=== PATIENT | female | born 1960 | race Caucasian/White ===

== ENCOUNTER 2016-10-26 07:30 | Outpatient (CLI) | payer MEDICAID | END 2016-10-26 07:31 | disposition critical access hospital (66) | DX: R10.9 Unspecified abdominal pain (principal) | CPT/HCPCS: A0425; A0429 ==

== ENCOUNTER 2016-10-26 07:46 | Emergency (ER) | payer MEDICAID ==
[2016-10-26] MEDS ORDERED: SODIUM CHLORIDE 0.9% 1,000 ML IV ONE (07:50)
[2016-10-26] MEDS ORDERED: PROCHLORPERAZINE 10 MG/2 ML VIAL IVP STA (07:50)
[2016-10-26] MEDS ORDERED: PROCHLORPERAZINE 10 MG/2 ML VIAL ONE (07:58)
== END 2016-10-26 11:01 | disposition home or self-care (01) ==
DX: E86.0 Dehydration (principal); E11.65 Type 2 diabetes mellitus with hyperglycemia; Z79.84 Long term (current) use of oral hypoglycemic drugs; K52.9 Noninfective gastroenteritis and colitis, unspecified; I10 Essential (primary) hypertension; E78.00 Pure hypercholesterolemia, unspecified; J45.909 Unspecified asthma, uncomplicated; G47.30 Sleep apnea, unspecified; K21.9 Gastro-esophageal reflux disease without esophagitis; M19.90 Unspecified osteoarthritis, unspecified site; M79.7 Fibromyalgia

== ENCOUNTER 2016-11-11 11:42 | Outpatient (CLI) | payer MEDICAID | END 2016-11-11 11:43 | disposition critical access hospital (66) | DX: R11.2 Nausea with vomiting, unspecified (principal); R19.7 Diarrhea, unspecified | CPT/HCPCS: A0425; A0427 ==

== ENCOUNTER 2016-11-11 11:59 | Emergency (ER) | payer MEDICAID ==
[2016-11-11] MEDS ORDERED: SODIUM CHLORIDE 0.9% 1,000 ML IV ONE (12:08)
[2016-11-11] MEDS ORDERED: ONDANSETRON 4 MG/2 ML VIAL IVP STA (13:33)
== END 2016-11-11 14:27 | disposition home or self-care (01) ==
DX: K52.9 Noninfective gastroenteritis and colitis, unspecified (principal); E11.65 Type 2 diabetes mellitus with hyperglycemia; I10 Essential (primary) hypertension; E78.5 Hyperlipidemia, unspecified; E66.9 Obesity, unspecified; Z79.4 Long term (current) use of insulin; Z68.42 Body mass index [BMI] 45.0-49.9, adult

== ENCOUNTER 2017-01-01 19:04 | Emergency (ER) | payer MEDICAID ==
[2017-01-01] MEDS ORDERED: DIPHENOX/ATROPINE 2.5/0.025 MG TABLET PO STA (19:35)
[2017-01-01] MEDS ORDERED: PANTOPRAZOLE 40 MG TABLET PO STA (19:35)
[2017-01-01] MEDS ORDERED: MAG HYDROX/AL HYDROX/SIMETH 30 ML UDC PO STA (19:35)
[2017-01-01] MEDS ORDERED: LIDOCAINE VISCOUS 2% 15 ML UDC MM STA (19:35)
[2017-01-01] MEDS ORDERED: PANTOPRAZOLE 40 MG TABLET ONE (19:36)
[2017-01-01] MEDS ORDERED: LIDOCAINE VISCOUS 2% 15 ML UDC MM ONE (19:36)
[2017-01-01] MEDS ORDERED: DIPHENOX/ATROPINE 2.5/0.025 MG TABLET PO ONE (19:36)
[2017-01-01] MEDS ORDERED: MAG HYDROX/AL HYDROX/SIMETH 30 ML UDC ONE (19:36)
--- NOTE | 2017-01-01 19:37 | ED Physician Documentation ---
PD HPI ABD PAIN - Stated complaint Stated Complaint: VOMITTING/DIARRHEA - Chief complaint Chief Complaint: Abd Pain - History obtained from History obtained from: Patient - History of Present Illness Timing - onset: Other (56-year-old woman with history of diabetes, IBS, GERD. She ran out of her lansoprazole about a month ago and developed upper abdominal pain and burning ever since but now more acutely for the last 3 days has had profuse watery diarrhea not associated with fevers. She was on antibiotics about 2 months ago, but now more recently. There is no vomiting.) Review of Systems Ten Systems: 10 systems reviewed and negative Constitutional: denies: Fever, Chills Nose: denies: Rhinorrhea / runny nose, Congestion Cardiac: denies: Chest pain / pressure, Palpitations Respiratory: denies: Dyspnea, Cough PD PAST MEDICAL HISTORY - Past Medical History Cardiovascular: Hypertension, High cholesterol Respiratory: Asthma, Pneumonia, Sleep apnea, CPAP use Neuro: Headache/migraine Endocrine/Autoimmune: Type 2 diabetes GI: GERD, Other : None HEENT: None Psych: Depression, Anxiety, Post traumatic stress disorder, Claustrophobia Musculoskeletal: Osteoarthritis, Fibromyalgia, Chronic back pain Derm: Psoriasis, Rosacea - Past Surgical History Past Surgical History: Yes General: Colonoscopy, EGD, Other Ortho: Spine surgery, Other /RISK MGR: Hysterectomy, 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, Other - Present Medications Home Medications: Ambulatory Orders Medication Instructions Recorded Confirmed Fenofibrate [Lofibra] 160 mg PO BID 02/24/13 11/11/16 Lansoprazole 30 mg PO DAILY 02/24/13 11/11/16 Mirtazapine [Remeron] 15 mg PO QPM 02/24/13 11/11/16 Montelukast [Singulair] 10 mg PO QPM 02/24/13 11/11/16 Prazosin HCl [Minipress] 15 mg PO DAILY 02/24/13 11/11/16 Venlafaxine ER [Effexor ER] 450 mg PO DAILY 02/24/13 11/11/16 busPIRone [Buspar] 30 mg PO BID 02/24/13 11/11/16 metFORMIN [Glucophage] 1,000 mg PO BIDWM 02/24/13 11/11/16 Aripiprazole [Abilify] 30 mg PO DAILY 05/26/15 11/11/16 Glipizide 10 mg PO BID 05/26/15 11/11/16 Insulin Glargine [Lantus] 50 unit SQ DAILY 05/10/16 11/11/16 Insulin Lispro [Humalog] 30 unit SQ TID #0 05/12/16 11/11/16 Levalbuterol [Xopenex] 1.25 mg INH Q4HR PRN #0 neb 05/12/16 11/11/16 Losartan [Cozaar] 25 mg PO DAILY tablet 05/12/16 11/11/16 Naproxen [Naprosyn] 500 mg PO BID PRN #0 tablet 05/12/16 11/11/16 glipiZIDE [Glucotrol] 10 mg PO BID tablet 05/12/16 11/11/16 metFORMIN [Glucophage] 1,000 mg PO BIDWM tablet 05/12/16 11/11/16 traMADol [Ultram] 50 mg PO TID PRN #0 tablet 05/12/16 11/11/16 Loperamide [Imodium] 2 mg PO ONCE #12 capsule 10/26/16 11/11/16 Prochlorperazine [Compazine] 5 mg PO Q6H PRN #10 tablet 10/26/16 11/11/16 Bisoprolol Fumarate [Bisoprolol DAILY 11/11/16 Fumarate] Ondansetron Odt [Zofran] 4 mg TL Q6H PRN #10 tablet 11/11/16 Diphenoxylate/Atropine [Lomotil] 1 each PO QID PRN #20 tablet 01/01/17 Pantoprazole [Protonix] 40 mg PO DAILY #30 tablet 01/01/17 - Allergies Allergies/Adverse Reactions: Allergies Allergy/AdvReac Type Severity Reaction Status Date / Time acetaminophen [From Tylenol] Allergy Severe Anaphylaxis Verified 11/11/16 12:04 adhesive tape Allergy Severe Swelling/Er Verified 11/11/16 12:04 ythema corn [[place]] Allergy Severe Cramps Verified 11/11/16 12:04 ibuprofen [From Motrin] Allergy Severe Anaphylaxis Verified 11/11/16 12:04 latex Allergy Severe Edema/Eryth Verified 11/11/16 12:04 cristopher tetanus toxoid, adsorbed Allergy Severe Local Verified 11/11/16 12:04 swelling/Pain theophylline Allergy Severe Anaphylaxis Verified 11/11/16 12:04 wheat Allergy Intermediate Cramps Verified 11/11/16 12:04 oats Allergy Intermediate Cramps Uncoded 11/11/16 12:04 rice Allergy Intermediate Cramps Uncoded 11/11/16 12:04 milk AdvReac Intermediate Cramps Uncoded 11/11/16 12:04 - Social History Does the pt smoke?: No Smoking Status: Never smoker Does the pt drink ETOH?: No Does the pt have substance abuse?: No - Family History Family history: reports: Non contributory - Immunizations Immunizations are current?: Yes - POLST Patient has POLST: Yes PD ED PE NORMAL - Vitals Vital signs reviewed: Yes - General General: Alert and oriented X 3, No acute distress - HEENT HEENT: PERRL, EOMI, Moist mucous membranes - Cardiac Cardiac: RRR, No murmur - Respiratory Respiratory: No respiratory distress, Clear bilaterally - Abdomen Abdomen: Normal bowel sounds, Soft, Non tender - Neuro Neuro: Alert and oriented X 3, Normal speech - Psych Psych: Normal mood, Normal affect Results - Vitals Vitals: Vital Signs - 24 hr 01/01/17 01/01/17 19:08 20:36 Temperature 36.3 C L Heart Rate 72 73 Respiratory 17 18 Rate Blood Pressure 165/80 H 141/72 H O2 Saturation 100 97 Oxygen O2 Source Room air - Labs Labs: Microbiology 01/01/17 19:41 Clostridium difficile (PCR) - Final Stool 01/01/17 19:41 Campylobacter Antigen Assay - Final Stool Laboratory Tests 01/01/17 01/01/17 01/01/17 19:25 19:41 19:51 WBC 5.3 RBC 4.55 Hgb 13.3 Hct 39.5 MCV 86.8 MCH 29.1 MCHC 33.6 RDW 12.7 Plt Count 277 MPV 8.6 Neut # 3.1 Lymph # 1.6 [place] # 0.3 Eos # 0.1 Baso # 0.1 Absolute Nucleated RBC 0.00 Nucleated RBCs 0.0 Sodium Potassium Chloride Carbon Dioxide Anion Gap BUN Creatinine Estimated GFR (MDRD) Glucose POC Whole Bld Glucose 245 H Calcium Total Bilirubin AST ALT Alkaline Phosphatase Total Protein Albumin Globulin Albumin/Globulin Ratio Lipase Stool Leukocytes, Qual NEGATIVE 01/01/17 19:51 WBC RBC Hgb Hct MCV MCH MCHC RDW Plt Count MPV Neut # Lymph # [place] # Eos # Baso # Absolute Nucleated RBC Nucleated RBCs Sodium 136 Potassium 4.3 Chloride 102 Carbon Dioxide 25 Anion Gap 9.0 BUN 14 Creatinine 0.8 Estimated GFR (MDRD) 74 L Glucose 234 H POC Whole Bld Glucose Calcium 9.4 Total Bilirubin 0.7 AST 83 H ALT 83 H Alkaline Phosphatase 77 Total Protein 7.5 Albumin 4.4 Globulin 3.1 Albumin/Globulin Ratio 1.4 Lipase 26 Stool Leukocytes, Qual PD MEDICAL DECISION MAKING - ED course ED course: 56-year-old woman with upper dominant pain related to GERD and now diarrhea for the last couple of days. She has a benign abdominal exam and no fevers. Fecal leukocytes and initial stool studies are negative. Basic lab work notable only for mild liver enzyme elevation likely due to known fatty liver disease. [place] much better after PPI, GI cocktail. Also diarrhea decreased after Lomotil. Departure - Departure Disposition: 01 Home, Self Care Clinical Impression: Diarrhea Qualifiers: Diarrhea type: unspecified type Qualified Code(s): R19.7 - Diarrhea, unspecified Gastritis Qualifiers: Gastritis type: unspecified gastritis Chronicity: chronic Gastritis bleeding: without bleeding Qualified Code(s): K29.50 - Unspecified chronic gastritis without bleeding Condition: Good Record reviewed to determine appropriate education?: Yes Instructions: ED Diarrhea Viral Prescriptions: Diphenoxylate/Atropine [Lomotil] 1 each PO QID PRN #20 tablet PRN Reason: Diarrhea Pantoprazole [Protonix] 40 mg PO DAILY #30 tablet Comments: Call your doctor to arrange a follow up appointment. Make the next available appointment. In the interim return anytime if worse or if new symptoms develop. Your blood pressure was elevated today on check in to the emergency department. This does not mean that you have hypertension, it is a common phenomenon to check into the emergency department and have elevated blood pressure. I recommend that you see your primary care physician within the week to have it rechecked when you're feeling better.
[2017-01-01 20:11] LABS: ALBUMIN/GLOBULIN RATIO 1.4 (1.0-2.2); BILIRUBIN,TOTAL 0.7 mg/dL (0.2-1.0); CALCIUM 9.4 mg/dL (8.5-10.3); CREATININE 0.8 mg/dL (0.4-1.0); POTASSIUM 4.3 mmol/L (3.5-5.0); TOTAL PROTEIN 7.5 g/dL (6.7-8.2)
[2017-01-01 20:30] LABS: HCT - HEMATOCRIT 39.5 % (37.0-47.0); HGB - HEMOGLOBIN 13.3 g/dL (12.0-16.0); MEAN CORPUSCULAR VOLUME 86.8 fL (81.0-99.0); RED BLOOD COUNT 4.55 10^6/uL (4.20-5.40); UNCORRECTED WHITE BLOOD COUNT 5.3 x10^3/uL; WHITE BLOOD COUNT 5.3 x10^3/uL (4.8-10.8)
[2017-01-01 20:31] LABS: BASOPHILS # (AUTO) 0.1 10^3/uL (0.0-0.1); BASOPHILS % (AUTO) 1.4 %; EOSINOPHILS # (AUTO) 0.1 10^3/uL (0.0-0.7); EOSINOPHILS % (AUTO) 2.7 %; LYMPHOCYTES # (AUTO) 1.6 10^3/uL (1.5-3.5); LYMPHOCYTES % (AUTO) 30.9 %; MEAN CORPUSCULAR HEMOGLOBIN 29.1 pg (27.0-31.0); MEAN CORPUSCULAR HGB CONC 33.6 g/dL (32.0-36.0); MEAN PLATELET VOLUME 8.6 fL (7.9-10.8); MONOCYTES # (AUTO) 0.3 10^3/uL (0.0-1.0); NEUTROPHILS # (AUTO) 3.1 10^3/uL (1.5-6.6); RED CELL DISTRIBUTION WIDTH 12.7 % (12.0-15.0)
[2017-01-01 20:37] VITALS: BP 141/72
== END 2017-01-01 21:11 | disposition home or self-care (01) ==
LOC: ED 19:04
DX: K29.50 Unspecified chronic gastritis without bleeding (principal); R19.7 Diarrhea, unspecified; I10 Essential (primary) hypertension; E11.9 Type 2 diabetes mellitus without complications; Z79.4 Long term (current) use of insulin; Z79.84 Long term (current) use of oral hypoglycemic drugs; K58.9 Irritable bowel syndrome, unspecified; K21.9 Gastro-esophageal reflux disease without esophagitis; E78.00 Pure hypercholesterolemia, unspecified; G47.30 Sleep apnea, unspecified; M79.7 Fibromyalgia; M19.90 Unspecified osteoarthritis, unspecified site
CPT/HCPCS: 36415; 80053; 83630; 83690; 85025; 87045; 87046; 87493; 99283; A9270

== ENCOUNTER 2017-02-01 10:57 | Outpatient (CLI) | payer MEDICAID | END 2017-02-01 10:58 | disposition home or self-care (01) | LOC: NS 10:57 | PROVIDERS: ATTEND Internal Medicine | DX: Z71.3 Dietary counseling and surveillance (principal); E11.9 Type 2 diabetes mellitus without complications; E66.01 Morbid (severe) obesity due to excess calories; Z68.42 Body mass index [BMI] 45.0-49.9, adult | CPT/HCPCS: 97802 ==

== ENCOUNTER 2017-02-15 08:50 | Outpatient (CLI) | payer MEDICAID | END 2017-02-15 08:51 | disposition home or self-care (01) | LOC: NS 08:50 | PROVIDERS: ATTEND Internal Medicine | DX: Z71.3 Dietary counseling and surveillance (principal); E11.9 Type 2 diabetes mellitus without complications; E66.01 Morbid (severe) obesity due to excess calories; Z68.42 Body mass index [BMI] 45.0-49.9, adult | CPT/HCPCS: 97803 ==

== ENCOUNTER 2017-02-26 09:48 | Outpatient (CLI) | payer MEDICAID | END 2017-02-26 09:49 | disposition home or self-care (01) | LOC: NS 09:48 | PROVIDERS: ATTEND Internal Medicine | DX: Z71.3 Dietary counseling and surveillance (principal); E11.9 Type 2 diabetes mellitus without complications; E66.01 Morbid (severe) obesity due to excess calories; Z68.42 Body mass index [BMI] 45.0-49.9, adult | CPT/HCPCS: 97803 ==

== ENCOUNTER 2017-03-18 13:00 | Outpatient (CLI) | payer MEDICAID | END 2017-03-18 13:01 | disposition home or self-care (01) | LOC: NS 13:00 | PROVIDERS: ATTEND Internal Medicine | DX: Z71.3 Dietary counseling and surveillance (principal); E11.9 Type 2 diabetes mellitus without complications; Z79.4 Long term (current) use of insulin; E66.01 Morbid (severe) obesity due to excess calories; Z68.42 Body mass index [BMI] 45.0-49.9, adult | CPT/HCPCS: 97803 ==

== ENCOUNTER 2017-03-29 12:25 | Outpatient (CLI) | payer MEDICAID | END 2017-03-29 12:26 | disposition home or self-care (01) | LOC: NS 12:25 | PROVIDERS: ATTEND Internal Medicine | DX: Z71.3 Dietary counseling and surveillance (principal); E11.9 Type 2 diabetes mellitus without complications; E66.01 Morbid (severe) obesity due to excess calories; Z79.4 Long term (current) use of insulin; Z68.41 Body mass index [BMI] 40.0-44.9, adult | CPT/HCPCS: 97803 ==

== ENCOUNTER 2017-04-15 09:03 | Outpatient (CLI) | payer MEDICAID | END 2017-04-15 09:04 | disposition home or self-care (01) | LOC: NS 09:03 | PROVIDERS: ATTEND Internal Medicine | DX: Z71.3 Dietary counseling and surveillance (principal); E11.9 Type 2 diabetes mellitus without complications; Z79.4 Long term (current) use of insulin; Z68.41 Body mass index [BMI] 40.0-44.9, adult | CPT/HCPCS: 97803 ==

== ENCOUNTER 2017-05-06 09:52 | Outpatient (CLI) | payer MEDICAID | END 2017-05-06 09:53 | disposition home or self-care (01) | LOC: NS 09:52 | PROVIDERS: ATTEND Internal Medicine | DX: Z71.3 Dietary counseling and surveillance (principal); E11.9 Type 2 diabetes mellitus without complications; Z79.4 Long term (current) use of insulin; Z68.41 Body mass index [BMI] 40.0-44.9, adult | CPT/HCPCS: 97803 ==

== ENCOUNTER 2017-06-07 10:57 | Outpatient (CLI) | payer MEDICAID | END 2017-06-07 10:58 | disposition home or self-care (01) | LOC: NS 10:57 | PROVIDERS: ATTEND Internal Medicine | DX: Z71.3 Dietary counseling and surveillance (principal); E11.9 Type 2 diabetes mellitus without complications; E66.01 Morbid (severe) obesity due to excess calories; Z68.41 Body mass index [BMI] 40.0-44.9, adult | CPT/HCPCS: 97803 ==

== ENCOUNTER 2017-06-17 09:37 | Outpatient (CLI) | payer MEDICAID | END 2017-06-17 09:38 | disposition home or self-care (01) | LOC: NS 09:37 | PROVIDERS: ATTEND Internal Medicine | DX: Z71.3 Dietary counseling and surveillance (principal); E11.9 Type 2 diabetes mellitus without complications; E66.01 Morbid (severe) obesity due to excess calories; Z68.41 Body mass index [BMI] 40.0-44.9, adult | CPT/HCPCS: 97803 ==

== ENCOUNTER 2017-07-08 09:36 | Outpatient (CLI) | payer MEDICAID | END 2017-07-08 09:37 | disposition home or self-care (01) | LOC: NS 09:36 | PROVIDERS: ATTEND Internal Medicine | DX: Z71.3 Dietary counseling and surveillance (principal); E11.9 Type 2 diabetes mellitus without complications; Z79.4 Long term (current) use of insulin; E66.01 Morbid (severe) obesity due to excess calories; Z68.41 Body mass index [BMI] 40.0-44.9, adult | CPT/HCPCS: 97803 ==

== ENCOUNTER 2017-09-25 11:23 | Emergency (ER) | payer MEDICAID ==
[2017-09-25] MEDS ORDERED: ELECTROLYTE-A SOLUTION 1,000 ML IV ONE (11:37)
[2017-09-25 12:17] LABS: VBG BASE EXCESS 0.7 mmol/L (-2 - +2); VBG PCO2 48.3 mmHg (41-51); VBG PH 7.36 (7.31-7.41); VBG PO2 31.6 mmHg (25-47); VBG TOTAL CO2 28.2 mmol/L (24-29)
[2017-09-25 12:20] LABS: BASOPHILS # (AUTO) 0.1 10^3/uL (0.0-0.1); BASOPHILS % (AUTO) 1.5 %; EOSINOPHILS # (AUTO) 0.1 10^3/uL (0.0-0.7); EOSINOPHILS % (AUTO) 2.6 %; HGB - HEMOGLOBIN 12.6 g/dL (12.0-16.0); LYMPHOCYTES # (AUTO) 1.5 10^3/uL (1.5-3.5); LYMPHOCYTES % (AUTO) 30.2 %; MEAN CORPUSCULAR HEMOGLOBIN 30.1 pg (27.0-31.0); MEAN CORPUSCULAR HGB CONC 35.3 g/dL (32.0-36.0); MEAN CORPUSCULAR VOLUME 85.2 fL (81.0-99.0); MEAN PLATELET VOLUME 8.8 fL (7.9-10.8); MONOCYTES # (AUTO) 0.3 10^3/uL (0.0-1.0); MONOCYTES % (AUTO) 6.4 %; NEUTROPHILS # (AUTO) 2.9 10^3/uL (1.5-6.6); NEUTROPHILS % (AUTO) 59.3 %; PLT - PLATELET COUNT 272 10^3/uL (130-450); RED BLOOD COUNT 4.17 10^6/uL (4.20-5.40); RED CELL DISTRIBUTION WIDTH 12.8 % (12.0-15.0); WHITE BLOOD COUNT 4.9 x10^3/uL (4.8-10.8)
[2017-09-25 12:24] LABS: KETONES, SERUM (ACETEST) NEGATIVE (NEGATIVE)
[2017-09-25 12:30] LABS: ALBUMIN 4.3 g/dL (3.2-5.5); ALBUMIN/GLOBULIN RATIO 1.6 (1.0-2.2); ALKALINE PHOSPHATASE 111 IU/L (42-121); ALT ALANINE AMINOTRANSFERASE 25 IU/L (10-60); AST ASPARTATE AMINOTRANSFERASE 31 IU/L (10-42); BILIRUBIN,TOTAL 0.4 mg/dL (0.2-1.0); BUN - BLOOD UREA NITROGEN 20 mg/dL (6-20); CALCIUM 9.4 mg/dL (8.5-10.3); CARBON DIOXIDE - CO2 24 mmol/L (21-32); CHLORIDE 99 mmol/L (101-111); CREATININE 0.7 mg/dL (0.4-1.0); GFR - MDRD 87 (>89); GLUCOSE 345 mg/dL (70-100); LIPASE 34 U/L (22-51); SODIUM 133 mmol/L (135-145)
--- NOTE | 2017-09-25 12:34 | ED Physician Documentation ---
History of Present Illness - Stated complaint Stated Complaint: HIGH BLOOD SUGAR/N/DIZZY/GLF - Chief complaint Chief Complaint: General - History obtained from History obtained from: Patient - History of Present Illness Timing: Today Pain level max: 0 Pain level now: 0 Improved by: insulin Worsened by: nothing - Additonal information Additional information: states blood sugar was over 400 at home today. Sent in for eval. Has a prescription for lantus that she is supposed to start at home. She is on metformin and glipizide at home. No fever. No vomiting. No diarrhea. Does have nausea and dizziness. Has chronic pain in B feet. States fell and injured L ankle and R knee 5 days ago. Review of Systems Ten Systems: 10 systems reviewed and negative Constitutional: denies: Fever, Chills Nose: denies: Rhinorrhea / runny nose, Congestion Throat: denies: Sore throat Cardiac: denies: Chest pain / pressure GI: reports: Nausea. denies: Vomiting, Diarrhea Skin: denies: Rash Musculoskeletal: denies: Neck pain, Back pain Neurologic: denies: Headache PD PAST MEDICAL HISTORY - Past Medical History Cardiovascular: Hypertension, High cholesterol Respiratory: Asthma, Pneumonia, Sleep apnea, CPAP use Neuro: Headache/migraine Endocrine/Autoimmune: Type 2 diabetes GI: GERD, Other : None HEENT: None Psych: Depression, Anxiety, Post traumatic stress disorder, Claustrophobia Musculoskeletal: Osteoarthritis, Fibromyalgia, Chronic back pain Derm: Psoriasis, Rosacea - Past Surgical History Past Surgical History: Yes General: Colonoscopy, EGD, Other Ortho: Spine surgery, 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, 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, Other - Present Medications Home Medications: Ambulatory Orders Medication Instructions Recorded Confirmed Fenofibrate [Lofibra] 160 mg PO BID 02/24/13 11/11/16 Lansoprazole 30 mg PO DAILY 02/24/13 11/11/16 Mirtazapine [Remeron] 15 mg PO QPM 02/24/13 11/11/16 Montelukast [Singulair] 10 mg PO QPM 02/24/13 11/11/16 Prazosin HCl [Minipress] 15 mg PO DAILY 02/24/13 11/11/16 Venlafaxine ER [Effexor ER] 450 mg PO DAILY 02/24/13 11/11/16 busPIRone [Buspar] 10 mg PO BID 02/24/13 11/11/16 Insulin Glargine [Lantus] 50 unit SQ DAILY 05/10/16 11/11/16 Levalbuterol [Xopenex] 1.25 mg INH Q4HR PRN #0 neb 05/12/16 11/11/16 Losartan [Cozaar] 25 mg PO DAILY tablet 05/12/16 11/11/16 Naproxen [Naprosyn] 500 mg PO BID PRN #0 tablet 05/12/16 11/11/16 glipiZIDE [Glucotrol] 10 mg PO BID tablet 05/12/16 11/11/16 metFORMIN [Glucophage] 1,000 mg PO BIDWM tablet 05/12/16 11/11/16 Bisoprolol Fumarate [Bisoprolol DAILY 11/11/16 Fumarate] Valbenazine Tosylate [Ingrezza] 80 mg PO 09/25/17 - Allergies Allergies/Adverse Reactions: Allergies Allergy/AdvReac Type Severity Reaction Status Date / Time acetaminophen [From Tylenol] Allergy Severe Anaphylaxis Verified 09/25/17 11:31 adhesive tape Allergy Severe Swelling/Er Verified 09/25/17 11:31 ythema corn [[place]] Allergy Severe Cramps Verified 09/25/17 11:31 ibuprofen [From Motrin] Allergy Severe Anaphylaxis Verified 09/25/17 11:31 latex Allergy Severe Edema/Eryth Verified 09/25/17 11:31 cristopher tetanus toxoid, adsorbed Allergy Severe Local Verified 09/25/17 11:31 swelling/Pain theophylline Allergy Severe Anaphylaxis Verified 09/25/17 11:31 wheat Allergy Intermediate Cramps Verified 09/25/17 11:31 aripiprazole [From Abilify] Allergy Unknown Verified 09/25/17 11:31 oats Allergy Intermediate Cramps Uncoded 09/25/17 11:31 rice Allergy Intermediate Cramps Uncoded 09/25/17 11:31 milk AdvReac Intermediate Cramps Uncoded 09/25/17 11:31 - Social History Does the pt smoke?: No Smoking Status: Never smoker Does the pt drink ETOH?: No Does the pt have substance abuse?: No - Immunizations Immunizations are current?: Yes - POLST Patient has POLST: Yes PD ED PE NORMAL - Vitals Vital signs reviewed: Yes - General General: Alert and oriented X 3, No acute distress - HEENT HEENT: Moist mucous membranes - Neck Neck: Supple, no meningeal sign - Cardiac Cardiac: RRR, Strong equal pulses - Respiratory Respiratory: No respiratory distress, Clear bilaterally - Abdomen Abdomen: Soft, Non tender, Non distended - Derm Derm: Warm and dry, No rash - Extremities Extremities: No deformity, No tenderness to palpate, Normal ROM s pain, No edema - Neuro Neuro: Alert and oriented X 3 - Psych Psych: Normal mood, Normal affect Results - Vitals Vitals: Vital Signs - 24 hr 09/25/17 09/25/17 11:26 13:26 Temperature 36.2 C L Heart Rate 86 71 Respiratory 18 16 Rate Blood Pressure 150/78 H 151/83 H O2 Saturation 99 98 Oxygen O2 Source Room air - Labs Labs: Laboratory Tests 09/25/17 09/25/17 09/25/17 11:29 11:53 11:53 WBC 4.9 RBC 4.17 L Hgb 12.6 Hct 35.5 L MCV 85.2 MCH 30.1 MCHC 35.3 RDW 12.8 Plt Count 272 MPV 8.8 Neut # 2.9 Lymph # 1.5 [place] # 0.3 Eos # 0.1 Baso # 0.1 Absolute Nucleated RBC 0.00 Nucleated RBC % 0.0 VBG pH VBG pCO2 VBG pO2 VBG HCO3 VBG Total CO2 VBG O2 Saturation VBG Base Excess Sodium 133 L Potassium 4.0 Chloride 99 L Carbon Dioxide 24 Anion Gap 10.0 BUN 20 Creatinine 0.7 Estimated GFR (MDRD) 87 L Glucose 345 H POC Whole Bld Glucose 356 H Calcium 9.4 Total Bilirubin 0.4 AST 31 ALT 25 Alkaline Phosphatase 111 Total Protein 7.0 Albumin 4.3 Globulin 2.7 Albumin/Globulin Ratio 1.6 Lipase 34 Urine Color Urine Clarity Urine pH Ur Specific [place] Urine Protein Urine Glucose (UA) Urine Ketones Urine Occult Blood Urine Nitrite Urine Bilirubin Urine Urobilinogen Ur Leukocyte Esterase Ur Microscopic Review Urine Culture Comments Serum Ketones NEGATIVE 09/25/17 09/25/17 09/25/17 11:53 12:53 13:25 WBC RBC Hgb Hct MCV MCH MCHC RDW Plt Count MPV Neut # Lymph # [place] # Eos # Baso # Absolute Nucleated RBC Nucleated RBC % VBG pH 7.360 VBG pCO2 48.3 VBG pO2 31.6 VBG HCO3 26.7 VBG Total CO2 28.2 VBG O2 Saturation 65.6 VBG Base Excess 0.7 Sodium Potassium Chloride Carbon Dioxide Anion Gap BUN Creatinine Estimated GFR (MDRD) Glucose POC Whole Bld Glucose 289 H Calcium Total Bilirubin AST ALT Alkaline Phosphatase Total Protein Albumin Globulin Albumin/Globulin Ratio Lipase Urine Color YELLOW Urine Clarity CLEAR Urine pH 7.0 Ur Specific [place] <=1.005 Urine Protein NEGATIVE Urine Glucose (UA) >=1000 H Urine Ketones NEGATIVE Urine Occult Blood NEGATIVE Urine Nitrite NEGATIVE Urine Bilirubin NEGATIVE Urine Urobilinogen 0.2 (NORMAL) Ur Leukocyte Esterase NEGATIVE Ur Microscopic Review NOT INDICATED Urine Culture Comments NOT INDICATED Serum Ketones PD MEDICAL DECISION MAKING - ED course Complexity details: reviewed results, re-evaluated patient, considered differential, d/w patient, d/w family ED course: Patient is a 56-year-old female who has a history of diabetes, recently has had elevated blood sugars and is supposed to start on Lantus but has not started on this yet. Came in today for elevated blood sugars. Feels better after IV fluids and insulin. No UTI. She has been treated several times for infections in her skin folds, there does not appear to be any infection today. We will continue supportive care and have her start on her Lantus at home. Patient counseled regarding signs and symptoms for which I believe and urgent re- evaluation would be necessary. Patient with good understanding of and agreement to plan and is comfortable going home at this time This document was made in part using voice recognition software. While efforts are made to proofread this document, sound alike and grammatical errors may occur. Departure - Departure Disposition: 01 Home, Self Care Clinical Impression: Hyperglycemia Condition: Good Instructions: ED Hyperglycemia Diabetic Follow-Up: Reji Bose PA-C [Primary Care Provider] - Within 1 week Comments: Return if you worsen. Start the insulin as directed by your charge nurse today. Discharge Date/Time: 09/25/17 13:34
[2017-09-25] MEDS ORDERED: INSULIN REGULAR HUMAN 100 UNIT/1 ML 10 ML MDV SUBQ STA (12:43)
[2017-09-25 12:59] LABS: BILIRUBIN,URINE NEGATIVE (NEGATIVE); GLUCOSE, URINE (UA) >=1000 mg/dL (NEGATIVE); KETONES,URINE (UA) NEGATIVE (NEGATIVE); LEUKOCYTE ESTERASE, URINE NEGATIVE (NEGATIVE); NITRITE,URINE NEGATIVE (NEGATIVE); OCCULT BLOOD,URINE NEGATIVE (NEGATIVE); PROTEIN,URINE NEGATIVE (NEGATIVE); UROBILINOGEN,URINE 0.2 (NORMAL) E.U./dL (NORMAL)
[2017-09-25 13:11] LABS: CLARITY,URINE CLEAR (CLEAR)
[2017-09-25 13:28] VITALS: BP 151/83
== END 2017-09-25 13:34 | disposition home or self-care (01) ==
LOC: ED 11:23
DX: E11.65 Type 2 diabetes mellitus with hyperglycemia (principal); Z79.4 Long term (current) use of insulin; I10 Essential (primary) hypertension
CPT/HCPCS: 36415; 80053; 81003; 82009; 82803; 83690; 85025; 96365; 99283; 99284; J1815; 81001; 87086

== ENCOUNTER 2017-10-10 13:05 | Outpatient (CLI) | payer MEDICAID | END 2017-10-10 13:06 | disposition critical access hospital (66) | LOC: EMS 13:05 | PROVIDERS: ATTEND Surgery | DX: R19.7 Diarrhea, unspecified (principal); R11.10 Vomiting, unspecified | CPT/HCPCS: A0425; A0429 ==

== ENCOUNTER 2017-10-10 13:21 | Emergency (ER) | payer MEDICAID ==
[2017-10-10] MEDS ORDERED: ONDANSETRON 4 MG/2 ML VIAL IVP STA (13:29)
[2017-10-10] MEDS ORDERED: SODIUM CHLORIDE 0.9% 1,000 ML IV ONE (13:29)
--- NOTE | 2017-10-10 13:29 | ED Physician Documentation ---
PD HPI ABD PAIN - Stated complaint Stated Complaint: ABD PX - Chief complaint Chief Complaint: Abd Pain - History obtained from History obtained from: Patient, EMS - History of Present Illness Timing - onset: Other (Starting abruptly this morning at 9 AM she developed vomiting, diarrhea, and stomach cramps. There is no blood from either end. She thinks it might be related to steak and mushrooms she had last night, they were store-bought mushrooms. She had 2 visits last year for similar, on the first she had an atypical stool pathogen, Providencia rettgeri identified.) Review of Systems Constitutional: denies: Fever, Chills GI: reports: Abdominal Pain, Nausea, Vomiting, Diarrhea. denies: Hematemesis, Bloody / black stool : denies: Dysuria, Frequency PD PAST MEDICAL HISTORY - Past Medical History Past Medical History: Yes Cardiovascular: Hypertension, High cholesterol Respiratory: Asthma, Pneumonia, Sleep apnea, CPAP use Neuro: Headache/migraine Endocrine/Autoimmune: Type 2 diabetes GI: GERD, Other : None HEENT: None Psych: Depression, Anxiety, Post traumatic stress disorder, Claustrophobia Musculoskeletal: Osteoarthritis, Fibromyalgia, Chronic back pain Derm: Psoriasis, Rosacea - Past Surgical History Past Surgical History: Yes General: Colonoscopy, EGD, Other Ortho: Spine 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, 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, 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, Other - Present Medications Home Medications: Ambulatory Orders Medication Instructions Recorded Confirmed Fenofibrate [Lofibra] 160 mg PO BID 02/24/13 11/11/16 Lansoprazole 30 mg PO DAILY 02/24/13 11/11/16 Mirtazapine [Remeron] 15 mg PO QPM 02/24/13 11/11/16 Montelukast [Singulair] 10 mg PO QPM 02/24/13 11/11/16 Prazosin HCl [Minipress] 15 mg PO DAILY 02/24/13 11/11/16 Venlafaxine ER [Effexor ER] 450 mg PO DAILY 02/24/13 11/11/16 busPIRone [Buspar] 10 mg PO BID 02/24/13 11/11/16 Insulin Glargine [Lantus] 50 unit SQ DAILY 05/10/16 11/11/16 Levalbuterol [Xopenex] 1.25 mg INH Q4HR PRN #0 neb 05/12/16 11/11/16 Losartan [Cozaar] 25 mg PO DAILY tablet 05/12/16 11/11/16 Naproxen [Naprosyn] 500 mg PO BID PRN #0 tablet 05/12/16 11/11/16 glipiZIDE [Glucotrol] 10 mg PO BID tablet 05/12/16 11/11/16 metFORMIN [Glucophage] 1,000 mg PO BIDWM tablet 05/12/16 11/11/16 Bisoprolol Fumarate [Bisoprolol DAILY 11/11/16 Fumarate] Valbenazine Tosylate [Ingrezza] 80 mg PO 09/25/17 Dicyclomine HCl 20 mg PO QID PRN #20 tablet 10/10/17 Loperamide [Imodium] 2 mg PO QID PRN #10 capsule 10/10/17 Ondansetron HCl [Zofran] 4 mg PO Q6H PRN #10 tablet 10/10/17 traMADol [Ultram] 50 mg PO Q4-6H PRN #15 tablet 10/10/17 - Allergies Allergies/Adverse Reactions: Allergies Allergy/AdvReac Type Severity Reaction Status Date / Time acetaminophen [From Tylenol] Allergy Severe Anaphylaxis Verified 09/25/17 11:31 adhesive tape Allergy Severe Swelling/Er Verified 09/25/17 11:31 ythema corn [[place]] Allergy Severe Cramps Verified 09/25/17 11:31 ibuprofen [From Motrin] Allergy Severe Anaphylaxis Verified 09/25/17 11:31 latex Allergy Severe Edema/Eryth Verified 09/25/17 11:31 cristopher tetanus toxoid, adsorbed Allergy Severe Local Verified 09/25/17 11:31 swelling/Pain theophylline Allergy Severe Anaphylaxis Verified 09/25/17 11:31 wheat Allergy Intermediate Cramps Verified 09/25/17 11:31 aripiprazole [From Abilify] Allergy Unknown Verified 09/25/17 11:31 oats Allergy Intermediate Cramps Uncoded 09/25/17 11:31 rice Allergy Intermediate Cramps Uncoded 09/25/17 11:31 milk AdvReac Intermediate Cramps Uncoded 09/25/17 11:31 - Social History Does the pt smoke?: No Smoking Status: Never smoker Does the pt drink ETOH?: No Does the pt have substance abuse?: No - Family History Family history: reports: Non contributory - Immunizations Immunizations are current?: Yes - POLST Patient has POLST: Yes PD ED PE NORMAL - Vitals Vital signs reviewed: Yes - General General: Alert and oriented X 3, No acute distress - HEENT HEENT: PERRL, EOMI - Neck Neck: Supple, no meningeal sign, No bony TTP - Cardiac Cardiac: RRR, No murmur - Respiratory Respiratory: No respiratory distress, Clear bilaterally - Abdomen Abdomen: Normal bowel sounds, Soft, Other (mild upper abd TTP) - Derm Derm: Normal color, Warm and dry - Extremities Extremities: No edema, No calf tenderness / cord - Neuro Neuro: Alert and oriented X 3, Normal speech Results - Vitals Vitals: Vital Signs - 24 hr 10/10/17 13:24 Temperature 36.6 C Heart Rate 78 Respiratory 18 Rate Blood Pressure 130/56 L O2 Saturation 97 Oxygen O2 Source Room air - Labs Labs: Laboratory Tests 10/10/17 10/10/17 13:54 13:54 WBC 5.4 RBC 4.49 Hgb 13.4 Hct 39.1 MCV 87.1 MCH 29.7 MCHC 34.1 RDW 13.2 Plt Count 253 MPV 8.7 Neut # 4.4 Lymph # 0.5 L [place] # 0.3 Eos # 0.1 Baso # 0.0 Absolute Nucleated RBC 0.00 Nucleated RBC % 0.0 Sodium 137 Potassium 3.9 Chloride 104 Carbon Dioxide 23 Anion Gap 10.0 BUN 16 Creatinine 0.7 Estimated GFR (MDRD) 87 L Glucose 276 H Calcium 9.3 Total Bilirubin 0.5 AST 21 ALT 18 Alkaline Phosphatase 94 Total Protein 7.8 Albumin 4.4 Globulin 3.4 Albumin/Globulin Ratio 1.3 Lipase 23 PD MEDICAL DECISION MAKING - ED course ED course: 56-year-old woman with an abrupt syndrome that sounds like gastroenteritis. She has a history of atypical stool organism, in the past, however normal white counts in the syndrome itself suggest against that. Departure - Departure Disposition: 01 Home, Self Care Clinical Impression: Gastroenteritis Condition: Good Record reviewed to determine appropriate education?: Yes Instructions: ED Gastroenteritis Viral Prescriptions: Dicyclomine HCl 20 mg PO QID PRN #20 tablet PRN Reason: Abdominal Cramps Loperamide [Imodium] 2 mg PO QID PRN #10 capsule PRN Reason: Diarrhea Ondansetron HCl [Zofran] 4 mg PO Q6H PRN #10 tablet PRN Reason: Nausea / Vomiting traMADol [Ultram] 50 mg PO Q4-6H PRN #15 tablet PRN Reason: Pain Comments: Call your doctor to arrange a follow-up appointment, make the next available appointment. In the interim, return anytime if worse or if new symptoms develop. Your blood pressure was elevated today on check into the emergency department. This does not mean that you have hypertension, it is a common phenomenon to come to the emergency department and have elevated blood pressure. I recommend that you see your primary care physician within the week to have it rechecked when you are feeling better.
[2017-10-10] MEDS ORDERED: DICYCLOMINE 10 MG CAPSULE PO STA (13:30)
[2017-10-10] MEDS: LOPERAMIDE 2 MG CAPSULE PO STA ×2 (13:49→14:40)
[2017-10-10 14:00] LABS: BASOPHILS % (AUTO) 0.5 %; EOSINOPHILS # (AUTO) 0.1 10^3/uL (0.0-0.7); EOSINOPHILS % (AUTO) 1.5 %; HGB - HEMOGLOBIN 13.4 g/dL (12.0-16.0); LYMPHOCYTES # (AUTO) 0.5 10^3/uL (1.5-3.5); MEAN CORPUSCULAR HEMOGLOBIN 29.7 pg (27.0-31.0); MEAN CORPUSCULAR HGB CONC 34.1 g/dL (32.0-36.0); MEAN CORPUSCULAR VOLUME 87.1 fL (81.0-99.0); MEAN PLATELET VOLUME 8.7 fL (7.9-10.8); MONOCYTES # (AUTO) 0.3 10^3/uL (0.0-1.0); MONOCYTES % (AUTO) 6.4 %; NEUTROPHILS # (AUTO) 4.4 10^3/uL (1.5-6.6); NEUTROPHILS % (AUTO) 82.6 %; PLT - PLATELET COUNT 253 10^3/uL (130-450); RED BLOOD COUNT 4.49 10^6/uL (4.20-5.40); RED CELL DISTRIBUTION WIDTH 13.2 % (12.0-15.0); WHITE BLOOD COUNT 5.4 x10^3/uL (4.8-10.8)
[2017-10-10 14:12] LABS: ALBUMIN 4.4 g/dL (3.2-5.5); ALBUMIN/GLOBULIN RATIO 1.3 (1.0-2.2); BILIRUBIN,TOTAL 0.5 mg/dL (0.2-1.0); CALCIUM 9.3 mg/dL (8.5-10.3); CREATININE 0.7 mg/dL (0.4-1.0); TOTAL PROTEIN 7.8 g/dL (6.7-8.2)
[2017-10-10] MEDS ORDERED: traMADol 50 MG TABLET PO STA (14:45)
[2017-10-10 14:51] VITALS: BP 131/57
== END 2017-10-10 15:00 | disposition home or self-care (01) ==
LOC: EDUNIT# → ED 13:21
DX: K52.9 Noninfective gastroenteritis and colitis, unspecified (principal); I10 Essential (primary) hypertension; E78.00 Pure hypercholesterolemia, unspecified; E11.9 Type 2 diabetes mellitus without complications
CPT/HCPCS: 36415; 80053; 83690; 85025; 87045; 87046; 87493; 96361; 96374; 99283; A9270

== ENCOUNTER 2018-01-29 07:30 | Day surgery (SDC) | payer MEDICAID ==
[~2018-01-29 07:30] MED LIST: LACTATED RINGERS 1,000 ML IV ONE; ceFAZolin 2 GM/50 ML 2 GM/50 ML BAG IV ONE
[2018-01-29] MEDS ORDERED: BUPIVACAINE 0.5% PF 30 ML VIAL ONE (07:54)
[2018-01-29] MEDS ORDERED: fentaNYL 100 MCG/2 ML VIAL IVP ONE (08:00)
[2018-01-29] MEDS ORDERED: ONDANSETRON 4 MG/2 ML VIAL IVP ONE (08:00)
[2018-01-29] MEDS ORDERED: DEXAMETHASONE 4 MG/ML VIAL IVP ONE (08:00)
[2018-01-29] MEDS ORDERED: PROPOFOL 1000 MG/100 ML IV ONE (08:00)
[2018-01-29] MEDS ORDERED: LIDOCAINE-MPF 2% 5 ML VIAL IM ONE (08:00)
[2018-01-29] MEDS ORDERED: MIDAZOLAM 2 MG/2 ML VIAL IVP ONE (08:00)
[2018-01-29] MEDS ORDERED: CHLORHEXIDINE GLUCONATE 15 ML UDC PO ONE (08:00)
[2018-01-29] MEDS ORDERED: SUCCINYLCHOLINE 200 MG/10 ML VIAL IVP ONE (08:00)
[2018-01-29] MEDS ORDERED: KETOROLAC 30 MG/ML VIAL IVP ONE (08:00)
[2018-01-29 08:28] LABS: BASOPHILS # (AUTO) 0.1 10^3/uL (0.0-0.1); BASOPHILS % (AUTO) 1.2 %; EOSINOPHILS # (AUTO) 0.1 10^3/uL (0.0-0.7); EOSINOPHILS % (AUTO) 2.1 %; HGB - HEMOGLOBIN 12.2 g/dL (12.0-16.0); LYMPHOCYTES # (AUTO) 1.6 10^3/uL (1.5-3.5); LYMPHOCYTES % (AUTO) 32.6 %; MEAN CORPUSCULAR HGB CONC 33.9 g/dL (32.0-36.0); MEAN CORPUSCULAR VOLUME 88.5 fL (81.0-99.0); MEAN PLATELET VOLUME 8.7 fL (7.9-10.8); MONOCYTES # (AUTO) 0.3 10^3/uL (0.0-1.0); NEUTROPHILS # (AUTO) 2.8 10^3/uL (1.5-6.6); NEUTROPHILS % (AUTO) 57.1 %; PLT - PLATELET COUNT 231 10^3/uL (130-450); RED BLOOD COUNT 4.07 10^6/uL (4.20-5.40); RED CELL DISTRIBUTION WIDTH 12.6 % (12.0-15.0); WHITE BLOOD COUNT 4.8 x10^3/uL (4.8-10.8)
[2018-01-29 08:36] LABS: CALCIUM 9.5 mg/dL (8.5-10.3); CREATININE 0.8 mg/dL (0.4-1.0)
[2018-01-29] MEDS ORDERED: ONDANSETRON 4 MG/2 ML VIAL ONE (10:00)
[2018-01-29] MEDS ORDERED: LACTATED RINGERS 1,000 ML IV ONE ×2 (10:32)
[2018-01-29] MEDS ORDERED: HYDROmorphone 1 MG/ML CARPUJECT ONE (10:35)
[2018-01-29] MEDS ORDERED: SCOPOLAMINE PATCH TOP ONE (10:57)
[2018-01-29 11:03] VITALS: BP 116/70
--- NOTE | 2018-01-29 13:15 | OPERATIVE REPORT ---
DATE OF SERVICE: 01/29/2018 Physician: Mynor Mishra DDS PREOPERATIVE DIAGNOSIS: Right tongue mass. POSTOPERATIVE DIAGNOSIS: Right tongue mass. PROCEDURE PERFORMED: Removal of right tongue mass of the anterior 2/3 of the tongue, about 2 cm in total length. PRIMARY SURGEON: Mynor Mishra DDS ANESTHESIOLOGIST: Tom Jones CRNA COMPLICATIONS: None. ESTIMATED BLOOD LOSS: 10 mL SPECIMEN: Right tongue mass submitted to Pathology. DRAINS, PACKS, CATHETERS: None. INDICATIONS FOR PROCEDURE: The patient came to my office with 2 interesting diagnoses. The 1st was tardive dyskinesia, which caused her to have uncontrollable movements of her tongue, lips and mandible. The 2nd diagnosis was a mass of the right tongue. The mass had never been biopsied. It had been present for a year, had been growing and worsening, was painful, especially when she bit it. It was decided that the mass needed to be removed. Its clinical appearance was most consistent with only fibroma and scar tissue secondary to frequent biting, which was secondary to the tardive dyskinesia; however, the procedure could not be performed under local anesthesia because of her inability to control her mouth movements. It was therefore decided that this procedure needed to be performed under general anesthesia at [facility] operating room. The risks, benefits and alternatives of this procedure were discussed with the patient including pain, swelling, bleeding, infection, nerve damage with numbness and loss of sensation and/or taste of the tongue, need for further surgeries, recurrence of the lesion, and continued biting of that side of her tongue. Adequate time was given to answer all questions, and informed consent was obtained. DESCRIPTION OF PROCEDURE: The patient was brought to the main operating room and placed in a supine position on the operating table. General anesthesia was induced by the anesthesia team, and the airway was secured with an oral endotracheal tube taped to the left side of the mouth. The patient was prepped and draped in the standard sterile fashion for an intraoral surgical procedure. All pressure points were padded and checked. The eyes were taped. A throat pack was placed. The mouth was rinsed with Peridex and the teeth were brushed. A 2-0 silk suture was passed through the anterior portion of the tongue and was used to retract the tongue out of the mouth. Local anesthesia was achieved with 0.5% Marcaine 4 mL lingual nerve and IA nerve block and local infiltration. A 15 blade was used to make an elliptical incision around the mass of the right tongue. Scissors were then used to undermine the mass and remove it completely. Electrocautery was used to achieve good hemostasis. The deep muscular layers of the tongue were closed with 3-0 Vicryl suture, and the mucosal layer of the tongue was closed with 4-0 chromic gut running interlocking suture. Good hemostasis was appreciated. Good natural-appearing margin of the lateral tongue was also appreciated. The mouth was rinsed free of debris. The throat pack was removed. The oropharynx was suctioned. Anesthesia passed an orogastric tube and suctioned the stomach. The patient's face was cleansed. The tape was removed from the eyes, and care of the patient was turned to the anesthesia team for uneventful emergence from anesthesia and extubation. The patient was transferred to the PACU and was found to be in stable condition. TD: 01/29/2018 10:00
== END 2018-01-29 07:31 | disposition home or self-care (01) ==
LOC: SDS 07:30
PROVIDERS: ATTEND Dentist Oral and Maxillofacial Surgery
PROC: 0CB70ZZ Excision of Tongue, Open Approach (ICD-10-PCS; principal; 2018-01-29 08:30)
DX: D10.1 Benign neoplasm of tongue (principal); K14.0 Glossitis; G24.01 Drug induced subacute dyskinesia; I10 Essential (primary) hypertension; G47.30 Sleep apnea, unspecified; E11.9 Type 2 diabetes mellitus without complications; I20.9 Angina pectoris, unspecified; J45.909 Unspecified asthma, uncomplicated; K21.9 Gastro-esophageal reflux disease without esophagitis; Z79.899 Other long term (current) drug therapy; Z79.84 Long term (current) use of oral hypoglycemic drugs
CPT/HCPCS: 36415; 41112; 80048; 85025; J0330; J0690; J1170; J3490; J7120

== ENCOUNTER 2018-02-24 11:00 | Outpatient (CLI) | payer MEDICAID | END 2018-02-24 11:01 | disposition critical access hospital (66) | LOC: EMS 11:00 | PROVIDERS: ATTEND Surgery | DX: R51 Headache (principal); R03.0 Elevated blood-pressure reading, without diagnosis of hypertension | CPT/HCPCS: A0425; A0429; A0999 ==

== ENCOUNTER 2018-02-24 11:27 | Emergency (ER) | payer MEDICAID ==
[2018-02-24] MEDS ORDERED: LOSARTAN 50 MG TABLET PO STA (13:59)
[2018-02-24] MEDS ORDERED: KETOROLAC 60 MG/2 ML VIAL IVP STA (13:59)
[2018-02-24] MEDS ORDERED: traMADol 50 MG TABLET PO STA (14:00)
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
[2018-02-24 14:20] LABS: BASOPHILS # (AUTO) 0.1 10^3/uL (0.0-0.1); BASOPHILS % (AUTO) 0.9 %; EOSINOPHILS # (AUTO) 0.1 10^3/uL (0.0-0.7); EOSINOPHILS % (AUTO) 2.1 %; HGB - HEMOGLOBIN 12.8 g/dL (12.0-16.0); LYMPHOCYTES # (AUTO) 1.3 10^3/uL (1.5-3.5); LYMPHOCYTES % (AUTO) 21.6 %; MEAN CORPUSCULAR HEMOGLOBIN 29.1 pg (27.0-31.0); MEAN CORPUSCULAR HGB CONC 34.3 g/dL (32.0-36.0); MEAN CORPUSCULAR VOLUME 84.6 fL (81.0-99.0); MEAN PLATELET VOLUME 8.3 fL (7.9-10.8); MONOCYTES # (AUTO) 0.3 10^3/uL (0.0-1.0); NEUTROPHILS # (AUTO) 4.2 10^3/uL (1.5-6.6); NEUTROPHILS % (AUTO) 70.4 %; PLT - PLATELET COUNT 284 10^3/uL (130-450); RED BLOOD COUNT 4.39 10^6/uL (4.20-5.40); RED CELL DISTRIBUTION WIDTH 12.8 % (12.0-15.0); WHITE BLOOD COUNT 5.9 x10^3/uL (4.8-10.8)
[2018-02-24 14:32] LABS: ALBUMIN 4.5 g/dL (3.2-5.5); ALBUMIN/GLOBULIN RATIO 1.4 (1.0-2.2); BILIRUBIN,TOTAL 1.1 mg/dL (0.2-1.0); CALCIUM 9.8 mg/dL (8.5-10.3); CREATININE 0.9 mg/dL (0.4-1.0); TOTAL PROTEIN 7.7 g/dL (6.7-8.2)
[2018-02-24] MEDS ORDERED: SODIUM CHLORIDE 0.9% 1,000 ML IV ONE (14:34)
[2018-02-24 14:45] LABS: GLUCOSE, URINE (UA) >=1000 mg/dL (NEGATIVE); KETONES,URINE (UA) 15 mg/dL (NEGATIVE); LEUKOCYTE ESTERASE, URINE NEGATIVE (NEGATIVE); NITRITE,URINE NEGATIVE (NEGATIVE); OCCULT BLOOD,URINE NEGATIVE (NEGATIVE); PH,URINE 5.5 PH (5.0-7.5); PROTEIN,URINE NEGATIVE (NEGATIVE); UROBILINOGEN,URINE 0.2 (NORMAL) E.U./dL (NORMAL)
[2018-02-24 14:56] LABS: BILIRUBIN,URINE NEGATIVE (NEGATIVE); CLARITY,URINE CLEAR (CLEAR); ICTOTEST,URINE NEGATIVE
[2018-02-24 15:06] VITALS: BP 177/70
== END 2018-02-24 15:37 | disposition home or self-care (01) ==
LOC: ED 11:27
DX: E11.65 Type 2 diabetes mellitus with hyperglycemia (principal); B37.2 Candidiasis of skin and nail; Z79.84 Long term (current) use of oral hypoglycemic drugs; Z91.14 Patient's other noncompliance with medication regimen; R51 Headache
CPT/HCPCS: 36415; 80053; 81003; 83690; 85025; 96374; 99283; A9270; 81001; 87086

== ENCOUNTER 2018-04-07 17:45 | Emergency (ER) | payer MEDICAID ==
[2018-04-07] MEDS ORDERED: LORazepam 0.5 MG TABLET PO STA (19:07)
[2018-04-07] MEDS ORDERED: LOSARTAN 50 MG TABLET PO STA (19:07)
[2018-04-07] MEDS ORDERED: metFORMIN 500 MG TABLET PO STA (19:07)
[2018-04-07] MEDS ORDERED: NAPROXEN 250 MG TABLET PO STA (19:07)
--- NOTE | 2018-04-07 19:09 | ED Physician Documentation ---
PD HPI MHE - Stated complaint Stated Complaint: MHE - Chief complaint Chief Complaint: MHE - History obtained from History obtained from: Patient - History of Present Illness Primary symptom: Suicidal ideation (57-year-old woman presents by private vehicle. She has a few issues that have caused her to become suicidal. She has chronic neck pain but more notably she been having a lot of problems with her neighbor. She has suicidal ideation without plan. She does not really know what she wants to do.) Review of Systems Ten Systems: 10 systems reviewed and negative Constitutional: denies: Fever, Chills Ears: denies: Ear pain, Drainage/discharge Nose: denies: Rhinorrhea / runny nose, Congestion Throat: denies: Sore throat Cardiac: denies: Chest pain / pressure, Palpitations Respiratory: denies: Dyspnea, Cough PD PAST MEDICAL HISTORY - Past Medical History Cardiovascular: Hypertension, High cholesterol, Other Respiratory: Asthma, Shortness of breath, Sleep apnea, CPAP use Endocrine/Autoimmune: Type 2 diabetes GI: GERD, Chronic diarrhea, Chronic constipation, Other : None HEENT: Chronic vision loss, Chronic sinusitis Psych: Depression, Anxiety, Panic attacks, Post traumatic stress disorder, Claustrophobia Musculoskeletal: Osteoarthritis, Fibromyalgia, Chronic back pain, Other Derm: Psoriasis, Rosacea - Past Surgical History Past Surgical History: Yes General: Colonoscopy, EGD, Other Ortho: Arthroscopic surgery, Spine surgery, 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, 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, 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, Other - Present Medications Home Medications: Ambulatory Orders Medication Instructions Recorded Confirmed Fenofibrate [Lofibra] 160 mg PO BID 02/24/13 01/27/18 Lansoprazole 30 mg PO DAILY 02/24/13 01/27/18 Mirtazapine [Remeron] 15 mg PO QPM 02/24/13 01/27/18 Montelukast [Singulair] 10 mg PO QPM 02/24/13 01/27/18 Prazosin HCl [Minipress] 10 mg PO DAILY PM 02/24/13 01/27/18 Venlafaxine ER [Effexor ER] 375 mg PO DAILY 02/24/13 01/27/18 busPIRone [Buspar] 10 mg PO DAILY 02/24/13 01/27/18 Naproxen [Naprosyn] 500 mg PO BID PRN #0 tablet 05/12/16 01/27/18 metFORMIN [Glucophage] 1,000 mg PO BIDWM tablet 05/12/16 01/27/18 Bisoprolol Fumarate 5 mg PO DAILY 11/11/16 01/27/18 Calcium Carbonate/Vitamin D3 1 each PO DAILY 01/27/18 01/27/18 [Calcium 500-Vit D3 200 Tablet] Cetirizine [ZyrTEC] 10 mg PO DAILY 01/27/18 01/27/18 Cholecalciferol [Vitamin D3] 5,000 unit PO BID 01/27/18 01/27/18 Empagliflozin [Jardiance] 10 mg PO DAILY 01/27/18 01/27/18 Fluticasone [Flonase] 4 sprays MELISSA DAILY 01/27/18 01/27/18 Lactobacillus Acidophilus 1 each PO DAILY 01/27/18 01/27/18 [Acidophilus Lactobacilli] Levalbuterol [Xopenex] 1.25 mg INH Q8HR 01/27/18 01/27/18 Losartan [Cozaar] 50 mg PO BID 01/27/18 01/27/18 [place]-3 Acid Ethyl Esters [Lovaza] 1 gm PO BID 01/27/18 01/27/18 Omega3/Dha/Epa/Fish Oil/Vit D3 1 each PO DAILY 01/27/18 01/27/18 [Fish Oil-Vit D3 Softgel] Triamcinolone 0.1% Oint [Kenalog 1 applic TOP BID 01/27/18 01/27/18 0.1% Oint] glipiZIDE [Glucotrol] 10 mg PO BID 01/27/18 01/27/18 Cephalexin [Keflex] 500 mg PO QID #40 capsule 02/24/18 Clotrimazole 1 gm TP TID #1 cream..g. 02/24/18 Tramadol HCl 50 mg 02/24/18 Valbenazine Tosylate [Ingrezza] 80 mg 02/24/18 Baclofen 10 mg PO 04/07/18 04/07/18 - Allergies Allergies/Adverse Reactions: Allergies Allergy/AdvReac Type Severity Reaction Status Date / Time acetaminophen [From Tylenol] Allergy Severe Anaphylaxis Verified 04/07/18 20:33 adhesive tape Allergy Severe Swelling/Er Verified 04/07/18 20:33 ythema corn [[place]] Allergy Severe Cramps Verified 04/07/18 20:33 ibuprofen [From Motrin] Allergy Severe Anaphylaxis Verified 04/07/18 20:33 latex Allergy Severe Edema/Eryth Verified 04/07/18 20:33 cristopher tetanus toxoid, adsorbed Allergy Severe Local Verified 04/07/18 20:33 swelling/Pain theophylline Allergy Severe Anaphylaxis Verified 04/07/18 20:33 wheat Allergy Intermediate Cramps Verified 04/07/18 20:33 aripiprazole [From Abilify] Allergy Unknown Verified 04/07/18 20:33 benztropine Allergy Edema Verified 04/07/18 20:33 desvenlafaxine Allergy Unknown Verified 04/07/18 20:33 duloxetine Allergy Unknown Verified 04/07/18 20:33 gabapentin Allergy GI upset Verified 04/07/18 20:33 gluten Allergy GI upset Verified 04/07/18 20:33 loratadine Allergy Unknown Verified 04/07/18 20:33 spironolactone Allergy Unknown Verified 04/07/18 20:33 zolpidem Allergy Unknown Verified 04/07/18 20:33 bupropion AdvReac Depression Verified 04/07/18 20:33 lisinopril AdvReac Cough Verified 04/07/18 20:33 oats Allergy Intermediate Cramps Uncoded 01/27/18 10:51 rice Allergy Intermediate Cramps Uncoded 01/27/18 10:51 milk AdvReac Intermediate Cramps Uncoded 01/27/18 10:51 - Social History Does the pt smoke?: No Smoking Status: Never smoker Does the pt drink ETOH?: No Does the pt have substance abuse?: No - Family History Family history: reports: Non contributory - Immunizations Immunizations are current?: Yes - POLST Patient has POLST: Yes PD ED PE NORMAL - Vitals Vital signs reviewed: Yes - General General: Alert and oriented X 3, No acute distress - HEENT HEENT: PERRL, EOMI - Neck Neck: Supple, no meningeal sign, No bony TTP - Cardiac Cardiac: RRR, No murmur - Respiratory Respiratory: No respiratory distress, Clear bilaterally - Abdomen Abdomen: Normal bowel sounds, Soft, Non tender - Derm Derm: Normal color, Warm and dry - Extremities Extremities: No edema, No calf tenderness / cord - Neuro Neuro: Alert and oriented X 3, Normal speech - Psych Psych: Normal affect, Other (Tearful) Results - Vitals Vitals: Vital Signs - 24 hr 04/07/18 18:32 Temperature 36.5 C Heart Rate 98 Respiratory 20 Rate Blood Pressure 182/81 H O2 Saturation 97 Oxygen O2 Source Room air - EKG (time done) 192 Rate: Rate (enter#) (84) Rhythm: NSR [place]: Normal QRS: Low voltage Ischemia: Normal ST segments Computer interpretation: Agree with computer - Labs Labs: Laboratory Tests 04/07/18 04/07/18 04/07/18 19:15 19:15 19:15 WBC 5.7 RBC 4.44 Hgb 12.7 Hct 37.7 MCV 85.0 MCH 28.6 MCHC 33.6 RDW 13.4 Plt Count 308 MPV 7.3 L Neut # (Auto) 4.0 Lymph # (Auto) 1.2 L [place] # (Auto) 0.3 Eos # (Auto) 0.1 Baso # (Auto) 0.0 Absolute Nucleated RBC 0.00 Nucleated RBC % 0.1 Sodium 136 Potassium 4.0 Chloride 101 Carbon Dioxide 20 L Anion Gap 15.0 H BUN 17 Creatinine 0.9 Estimated GFR (MDRD) 65 L Glucose 129 H Calcium 9.4 Total Bilirubin 0.9 AST 32 ALT 35 Alkaline Phosphatase 84 Total Protein 7.5 Albumin 4.3 Globulin 3.2 Albumin/Globulin Ratio 1.3 Lipase 33 TSH 1.94 Urine Color Urine Clarity Urine pH Ur Specific [place] Urine Protein Urine Glucose (UA) Urine Ketones Urine Occult Blood Urine Nitrite Urine Bilirubin Urine Urobilinogen Ur Leukocyte Esterase Ur Microscopic Review Urine Culture Comments Salicylates < 6.0 Urine Opiates Screen Ur Oxycodone Screen Urine Methadone Screen Ur Propoxyphene Screen Acetaminophen < 10 L Ur Barbiturates Screen Ur Tricyclics Screen Ur Phencyclidine Scrn Ur Amphetamine Screen U Methamphetamines Scrn U Benzodiazepines Scrn Urine Cocaine Screen U Cannabinoids Screen Ethyl Alcohol < 5.0 04/07/18 19:40 WBC RBC Hgb Hct MCV MCH MCHC RDW Plt Count MPV Neut # (Auto) Lymph # (Auto) [place] # (Auto) Eos # (Auto) Baso # (Auto) Absolute Nucleated RBC Nucleated RBC % Sodium Potassium Chloride Carbon Dioxide Anion Gap BUN Creatinine Estimated GFR (MDRD) Glucose Calcium Total Bilirubin AST ALT Alkaline Phosphatase Total Protein Albumin Globulin Albumin/Globulin Ratio Lipase TSH Urine Color YELLOW Urine Clarity CLEAR Urine pH 5.5 Ur Specific [place] 1.015 Urine Protein NEGATIVE Urine Glucose (UA) >=1000 H Urine Ketones 15 H Urine Occult Blood NEGATIVE Urine Nitrite NEGATIVE Urine Bilirubin NEGATIVE Urine Urobilinogen 0.2 (NORMAL) Ur Leukocyte Esterase NEGATIVE Ur Microscopic Review NOT INDICATED Urine Culture Comments NOT INDICATED Salicylates Urine Opiates Screen NEGATIVE Ur Oxycodone Screen NEGATIVE Urine Methadone Screen NEGATIVE Ur Propoxyphene Screen NEGATIVE Acetaminophen Ur Barbiturates Screen NEGATIVE Ur Tricyclics Screen NEGATIVE Ur Phencyclidine Scrn NEGATIVE Ur Amphetamine Screen NEGATIVE U Methamphetamines Scrn NEGATIVE U Benzodiazepines Scrn NEGATIVE Urine Cocaine Screen NEGATIVE U Cannabinoids Screen NEGATIVE Ethyl Alcohol PD MEDICAL DECISION MAKING - ED course ED course: 57-year-old woman with medical medical problems including depression presents with increased depression and suicidal ideation without plan due to personal stressors mostly relating to a particular neighbor. She would like to consider voluntary hospitalization. She is medically clear for psychiatric and social work evaluation. She is boarding in the emergency department overnight pending social work return in the morning. - Sepsis Event Vital Signs: Vital Signs - 24 hr 04/07/18 18:32 Temperature 36.5 C Heart Rate 98 Respiratory 20 Rate Blood Pressure 182/81 H O2 Saturation 97 Oxygen O2 Source Room air Departure - Departure Clinical Impression: Fibromyalgia, Depressive disorder T2DM (type 2 diabetes mellitus) Qualifiers: Diabetes mellitus lobsterman insulin use: without lobsterman use Diabetes mellitus complication status: without complication Qualified Code(s): E11.9 - Type 2 diabetes mellitus without complications
[2018-04-07 19:23] LABS: BASOPHILS % (AUTO) 0.8 %; EOSINOPHILS # (AUTO) 0.1 10^3/uL (0.0-0.7); EOSINOPHILS % (AUTO) 1.8 %; HGB - HEMOGLOBIN 12.7 g/dL (12.0-16.0); LYMPHOCYTES # (AUTO) 1.2 10^3/uL (1.5-3.5); LYMPHOCYTES % (AUTO) 21.1 %; MEAN CORPUSCULAR HEMOGLOBIN 28.6 pg (27.0-31.0); MEAN CORPUSCULAR HGB CONC 33.6 g/dL (32.0-36.0); MEAN PLATELET VOLUME 7.3 fL (7.9-10.8); MONOCYTES # (AUTO) 0.3 10^3/uL (0.0-1.0); MONOCYTES % (AUTO) 5.1 %; NEUTROPHILS % (AUTO) 71.2 %; PLT - PLATELET COUNT 308 10^3/uL (130-450); RED BLOOD COUNT 4.44 10^6/uL (4.20-5.40); RED CELL DISTRIBUTION WIDTH 13.4 % (12.0-15.0); WHITE BLOOD COUNT 5.7 x10^3/uL (4.8-10.8)
[2018-04-07 19:37] LABS: ALBUMIN 4.3 g/dL (3.2-5.5); ALBUMIN/GLOBULIN RATIO 1.3 (1.0-2.2); ALKALINE PHOSPHATASE 84 IU/L (42-121); ALT ALANINE AMINOTRANSFERASE 35 IU/L (10-60); AST ASPARTATE AMINOTRANSFERASE 32 IU/L (10-42); BILIRUBIN,TOTAL 0.9 mg/dL (0.2-1.0); BUN - BLOOD UREA NITROGEN 17 mg/dL (6-20); CALCIUM 9.4 mg/dL (8.5-10.3); CARBON DIOXIDE - CO2 20 mmol/L (21-32); CHLORIDE 101 mmol/L (101-111); CREATININE 0.9 mg/dL (0.4-1.0); GFR - MDRD 65 (>89); GLUCOSE 129 mg/dL (70-100); LIPASE 33 U/L (22-51); SALICYLATE < 6.0 mg/dL; SODIUM 136 mmol/L (135-145); TOTAL PROTEIN 7.5 g/dL (6.7-8.2)
[2018-04-07 19:38] LABS: ACETAMINOPHEN < 10 ug/mL (10-30)
[2018-04-07] MEDS ORDERED: ONDANSETRON ODT 4 MG TABLET TL STA (19:59)
[2018-04-07] MEDS ORDERED: PRAZOSIN 1 MG CAPSULE PO SCH (20:00)
[2018-04-07 20:02] LABS: MUDS CUTOFF CONCENTRATIONS CUTOFF CONC BELOW:
[2018-04-07 20:08] LABS: GLUCOSE, URINE (UA) >=1000 mg/dL (NEGATIVE); KETONES,URINE (UA) 15 mg/dL (NEGATIVE); LEUKOCYTE ESTERASE, URINE NEGATIVE (NEGATIVE); NITRITE,URINE NEGATIVE (NEGATIVE); OCCULT BLOOD,URINE NEGATIVE (NEGATIVE); PH,URINE 5.5 PH (5.0-7.5); PROTEIN,URINE NEGATIVE (NEGATIVE); UROBILINOGEN,URINE 0.2 (NORMAL) E.U./dL (NORMAL)
[2018-04-07 20:16] LABS: BILIRUBIN,URINE NEGATIVE (NEGATIVE); CLARITY,URINE CLEAR (CLEAR); ICTOTEST,URINE NEGATIVE
[2018-04-07 20:17] LABS: AMPHETAMINE SCREEN,URINE NEGATIVE (NEGATIVE); BENZODIAZEPINES SCREEN, URINE NEGATIVE (NEGATIVE); COCAINE SCREEN URINE NEGATIVE (NEGATIVE); METHADONE SCREEN, URINE NEGATIVE (NEGATIVE); METHAMPHETAMINES SCREEN, URINE NEGATIVE (NEGATIVE); OPIATE SCREEN, URINE NEGATIVE (NEGATIVE); OXYCODONE SCREEN, URINE NEGATIVE (NEGATIVE); PROPOXYPHENE SCREEN, URINE NEGATIVE (NEGATIVE); TRICYCLIC ANTIDEPRESSANT,URINE NEGATIVE (NEGATIVE)
[2018-04-07] MEDS ORDERED: VENLAFAXINE 37.5 MG TABLET PO STA ×2 (20:35→20:54)
[2018-04-07] MEDS ORDERED: VENLAFAXINE 37.5 MG TABLET PO ONE (21:12)
[2018-04-07] MEDS ORDERED: MIRTAZAPINE 15 MG TABLET PO STA (22:00)
[2018-04-07] MEDS ORDERED: busPIRone 5 MG TABLET PO STA (22:00)
[2018-04-08] MEDS ORDERED: NAPROXEN 250 MG TABLET PO STA (06:32)
[2018-04-08] MEDS ORDERED: OXYMETAZOLINE NASAL SPRAY NAS STA (06:32)
--- NOTE | 2018-04-08 06:34 | ED Physician Documentation ---
History of Present Illness - Stated complaint Stated Complaint: MHE - Chief complaint Chief Complaint: MHE PD PAST MEDICAL HISTORY - Past Medical History Cardiovascular: Hypertension, High cholesterol, Other Respiratory: Asthma, Shortness of breath, Sleep apnea, CPAP use Endocrine/Autoimmune: Type 2 diabetes GI: GERD, Chronic diarrhea, Chronic constipation, Other : None HEENT: Chronic vision loss, Chronic sinusitis Psych: Depression, Anxiety, Panic attacks, Post traumatic stress disorder, Claustrophobia Musculoskeletal: Osteoarthritis, Fibromyalgia, Chronic back pain, Other Derm: Psoriasis, Rosacea - Past Surgical History Past Surgical History: Yes General: Colonoscopy, EGD, Other Ortho: Arthroscopic surgery, Spine surgery, Other /[employer]: Hysterectomy, Oophrectomy, 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, Other - Present Medications Home Medications: Ambulatory Orders Medication Instructions Recorded Confirmed Fenofibrate [Lofibra] 160 mg PO BID 02/24/13 01/27/18 Lansoprazole 30 mg PO DAILY 02/24/13 01/27/18 Mirtazapine [Remeron] 15 mg PO QPM 02/24/13 01/27/18 Montelukast [Singulair] 10 mg PO QPM 02/24/13 01/27/18 Prazosin HCl [Minipress] 10 mg PO DAILY PM 02/24/13 01/27/18 Venlafaxine ER [Effexor ER] 375 mg PO DAILY 02/24/13 01/27/18 busPIRone [Buspar] 10 mg PO DAILY 02/24/13 01/27/18 Naproxen [Naprosyn] 500 mg PO BID PRN #0 tablet 05/12/16 01/27/18 metFORMIN [Glucophage] 1,000 mg PO BIDWM tablet 05/12/16 01/27/18 Bisoprolol Fumarate 5 mg PO DAILY 11/11/16 01/27/18 Calcium Carbonate/Vitamin D3 1 each PO DAILY 01/27/18 01/27/18 [Calcium 500-Vit D3 200 Tablet] Cetirizine [ZyrTEC] 10 mg PO DAILY 01/27/18 01/27/18 Cholecalciferol [Vitamin D3] 5,000 unit PO BID 01/27/18 01/27/18 Empagliflozin [Jardiance] 10 mg PO DAILY 01/27/18 01/27/18 Fluticasone [Flonase] 4 sprays MELISSA DAILY 01/27/18 01/27/18 Lactobacillus Acidophilus 1 each PO DAILY 01/27/18 01/27/18 [Acidophilus Lactobacilli] Levalbuterol [Xopenex] 1.25 mg INH Q8HR 01/27/18 01/27/18 Losartan [Cozaar] 50 mg PO BID 01/27/18 01/27/18 [place]-3 Acid Ethyl Esters [Lovaza] 1 gm PO BID 01/27/18 01/27/18 Omega3/Dha/Epa/Fish Oil/Vit D3 1 each PO DAILY 01/27/18 01/27/18 [Fish Oil-Vit D3 Softgel] Triamcinolone 0.1% Oint [Kenalog 1 applic TOP BID 01/27/18 01/27/18 0.1% Oint] glipiZIDE [Glucotrol] 10 mg PO BID 01/27/18 01/27/18 Cephalexin [Keflex] 500 mg PO QID #40 capsule 02/24/18 Clotrimazole 1 gm TP TID #1 cream..g. 02/24/18 Tramadol HCl 50 mg 02/24/18 Valbenazine Tosylate [Ingrezza] 80 mg 02/24/18 Baclofen 10 mg PO 04/07/18 04/07/18 - Allergies Allergies/Adverse Reactions: Allergies Allergy/AdvReac Type Severity Reaction Status Date / Time acetaminophen [From Tylenol] Allergy Severe Anaphylaxis Verified 04/07/18 20:33 adhesive tape Allergy Severe Swelling/Er Verified 04/07/18 20:33 ythema corn [[place]] Allergy Severe Cramps Verified 04/07/18 20:33 ibuprofen [From Motrin] Allergy Severe Anaphylaxis Verified 04/07/18 20:33 latex Allergy Severe Edema/Eryth Verified 04/07/18 20:33 cristopher tetanus toxoid, adsorbed Allergy Severe Local Verified 04/07/18 20:33 swelling/Pain theophylline Allergy Severe Anaphylaxis Verified 04/07/18 20:33 wheat Allergy Intermediate Cramps Verified 04/07/18 20:33 aripiprazole [From Abilify] Allergy Unknown Verified 04/07/18 20:33 benztropine Allergy Edema Verified 04/07/18 20:33 desvenlafaxine Allergy Unknown Verified 04/07/18 20:33 duloxetine Allergy Unknown Verified 04/07/18 20:33 gabapentin Allergy GI upset Verified 04/07/18 20:33 gluten Allergy GI upset Verified 04/07/18 20:33 loratadine Allergy Unknown Verified 04/07/18 20:33 spironolactone Allergy Unknown Verified 04/07/18 20:33 zolpidem Allergy Unknown Verified 04/07/18 20:33 bupropion AdvReac Depression Verified 04/07/18 20:33 lisinopril AdvReac Cough Verified 04/07/18 20:33 oats Allergy Intermediate Cramps Uncoded 01/27/18 10:51 rice Allergy Intermediate Cramps Uncoded 01/27/18 10:51 milk AdvReac Intermediate Cramps Uncoded 01/27/18 10:51 - Social History Does the pt smoke?: No Smoking Status: Never smoker Does the pt drink ETOH?: No Does the pt have substance abuse?: No - Immunizations Immunizations are current?: Yes - POLST Patient has POLST: Yes Results - Vitals Vitals: Vital Signs - 24 hr 04/07/18 18:32 Temperature 36.5 C Heart Rate 98 Respiratory 20 Rate Blood Pressure 182/81 H O2 Saturation 97 Oxygen O2 Source Room air - Labs Labs: Laboratory Tests 04/07/18 04/07/18 04/07/18 19:15 19:15 19:15 WBC 5.7 RBC 4.44 Hgb 12.7 Hct 37.7 MCV 85.0 MCH 28.6 MCHC 33.6 RDW 13.4 Plt Count 308 MPV 7.3 L Neut # (Auto) 4.0 Lymph # (Auto) 1.2 L [place] # (Auto) 0.3 Eos # (Auto) 0.1 Baso # (Auto) 0.0 Absolute Nucleated RBC 0.00 Nucleated RBC % 0.1 Sodium 136 Potassium 4.0 Chloride 101 Carbon Dioxide 20 L Anion Gap 15.0 H BUN 17 Creatinine 0.9 Estimated GFR (MDRD) 65 L Glucose 129 H Calcium 9.4 Total Bilirubin 0.9 AST 32 ALT 35 Alkaline Phosphatase 84 Total Protein 7.5 Albumin 4.3 Globulin 3.2 Albumin/Globulin Ratio 1.3 Lipase 33 TSH 1.94 Urine Color Urine Clarity Urine pH Ur Specific [place] Urine Protein Urine Glucose (UA) Urine Ketones Urine Occult Blood Urine Nitrite Urine Bilirubin Urine Urobilinogen Ur Leukocyte Esterase Ur Microscopic Review Urine Culture Comments Salicylates < 6.0 Urine Opiates Screen Ur Oxycodone Screen Urine Methadone Screen Ur Propoxyphene Screen Acetaminophen < 10 L Ur Barbiturates Screen Ur Tricyclics Screen Ur Phencyclidine Scrn Ur Amphetamine Screen U Methamphetamines Scrn U Benzodiazepines Scrn Urine Cocaine Screen U Cannabinoids Screen Ethyl Alcohol < 5.0 04/07/18 19:40 WBC RBC Hgb Hct MCV MCH MCHC RDW Plt Count MPV Neut # (Auto) Lymph # (Auto) [place] # (Auto) Eos # (Auto) Baso # (Auto) Absolute Nucleated RBC Nucleated RBC % Sodium Potassium Chloride Carbon Dioxide Anion Gap BUN Creatinine Estimated GFR (MDRD) Glucose Calcium Total Bilirubin AST ALT Alkaline Phosphatase Total Protein Albumin Globulin Albumin/Globulin Ratio Lipase TSH Urine Color YELLOW Urine Clarity CLEAR Urine pH 5.5 Ur Specific [place] 1.015 Urine Protein NEGATIVE Urine Glucose (UA) >=1000 H Urine Ketones 15 H Urine Occult Blood NEGATIVE Urine Nitrite NEGATIVE Urine Bilirubin NEGATIVE Urine Urobilinogen 0.2 (NORMAL) Ur Leukocyte Esterase NEGATIVE Ur Microscopic Review NOT INDICATED Urine Culture Comments NOT INDICATED Salicylates Urine Opiates Screen NEGATIVE Ur Oxycodone Screen NEGATIVE Urine Methadone Screen NEGATIVE Ur Propoxyphene Screen NEGATIVE Acetaminophen Ur Barbiturates Screen NEGATIVE Ur Tricyclics Screen NEGATIVE Ur Phencyclidine Scrn NEGATIVE Ur Amphetamine Screen NEGATIVE U Methamphetamines Scrn NEGATIVE U Benzodiazepines Scrn NEGATIVE Urine Cocaine Screen NEGATIVE U Cannabinoids Screen NEGATIVE Ethyl Alcohol PD MEDICAL DECISION MAKING - ED course ED course: assumed care 6 AM 04/09/18 57 female to ED with depression and suicidal ideation but no attempt 2/2 interactions with neighbors prior suicide attempts age 19 and 34 with cutting, suffocating and OD states she is in generally poor health with 48 active chronic medical problems but no recent fever cough NVD she would like some naproxen for her spinal stenosis and fibro and afrin for her congestion awake alert RRR CTAB has been medically clear 6AM awaiting SW eval 9 AM awaiting SW eval 11 AM seen by ELLIS felt not to be a danger to self or others and safe for dc - see Davidson's note - Sepsis Event Vital Signs: Vital Signs - 24 hr 04/07/18 18:32 Temperature 36.5 C Heart Rate 98 Respiratory 20 Rate Blood Pressure 182/81 H O2 Saturation 97 Oxygen O2 Source Room air Departure - Departure Disposition: 01 Home, Self Care Clinical Impression: Fibromyalgia, Depressive disorder T2DM (type 2 diabetes mellitus) Qualifiers: Diabetes mellitus fpc insulin use: without fpc use Diabetes mellitus complication status: without complication Qualified Code(s): E11.9 - Type 2 diabetes mellitus without complications Condition: Good Instructions: ED Depression Comments: You were seen by social work and she felt it was safe for you to go home. Please follow up with your PMD and I recommend outpatient counseling for stress anxiety and depression as well. Return if worse
[2018-04-08 12:08] VITALS: BP 167/75
== END 2018-04-08 12:07 | disposition home or self-care (01) ==
LOC: ED 17:45
DX: F32.9 Major depressive disorder, single episode, unspecified (principal); R45.851 Suicidal ideations; M79.7 Fibromyalgia; I10 Essential (primary) hypertension; E11.9 Type 2 diabetes mellitus without complications; F43.10 Post-traumatic stress disorder, unspecified; F41.9 Anxiety disorder, unspecified; Z76.4 Other boarder to healthcare facility; Z79.84 Long term (current) use of oral hypoglycemic drugs
CPT/HCPCS: 36415; 80053; 80306; 80307; 80320; 80329; 81003; 83690; 84443; 85025; 93005; 99283; 99284; A9270; Q0162; 81001; 87086

== ENCOUNTER 2018-06-02 10:10 | Outpatient (CLI) | payer MEDICAID ==
--- NOTE | 2018-06-03 13:21 | Mammography Report ---
Reason: SCREENING MAMMO Procedure Date: 06/02/2018 Accession Number: [id number] / [id number] Procedure: MGN - Screening Mammo Dig Bilat CPT Code: FULL RESULT: EXAM: Screening Mammo Dig Bilat DATE: 06/02/2018 10:36 AM CLINICAL HISTORY: Routine screening. Prior history of the bilateral reduction. Family history breast cancer age 53 in aunt and grandmother age 55. TECHNIQUE: Bilateral CC and MLO views were obtained. COMPARISON: 04/01/2013 through 06/29/2009. FINDINGS: The breasts demonstrate scattered fibroglandular densities bilaterally. There is suboptimal inclusion of posterior tissues and both inframammary folds on the MLO views compared to prior exams. There are stable postreduction mammoplasty changes. There are no suspicious masses, calcifications or areas of distortion. IMPRESSION: Incomplete examination RECOMMENDATION: Technical repeat both MLO views for posterior tissues/pectoralis and inframammary folds. BI-RADS CATEGORY 0: Incomplete examination STANDARD QUALIFYING STATEMENTS: 1. This examination was not reviewed with the aid of Computer-Aided Detection (CAD). 2. A negative or benign imaging report should not preclude biopsy if clinically suspicious findings are present. 3. Dense breasts may obscure an underlying neoplasm. 4. This examination was reviewed with the aid of 3D breast imaging (tomosynthesis).
== END 2018-06-02 10:11 | disposition home or self-care (01) ==
LOC: DI.N 10:10
DX: Z12.31 Encounter for screening mammogram for malignant neoplasm of breast (principal); R92.2 Inconclusive mammogram; Z80.3 Family history of malignant neoplasm of breast
CPT/HCPCS: 77067

== ENCOUNTER 2018-07-17 02:17 | Outpatient (CLI) | payer MEDICAID | END 2018-07-17 02:18 | disposition critical access hospital (66) | LOC: EMS 02:17 | PROVIDERS: ATTEND Surgery | DX: R11.2 Nausea with vomiting, unspecified (principal); R19.7 Diarrhea, unspecified; R10.9 Unspecified abdominal pain | CPT/HCPCS: A0425; A0427; A0999 ==

== ENCOUNTER 2018-07-17 02:33 | Emergency (ER) | payer MEDICAID ==
[2018-07-17] MEDS ORDERED: SODIUM CHLORIDE 0.9% 1,000 ML IV ONE (02:39)
[2018-07-17] MEDS ORDERED: PROMETHAZINE INJ 25 MG in SODIUM CHLORIDE 0.9% 50 ML IV STA (02:45)
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
[2018-07-17] MEDS ORDERED: PROCHLORPERAZINE 10 MG/2 ML VIAL IVP STA ×2 (02:49→05:03)
[2018-07-17 03:02] LABS: BASOPHILS % (AUTO) 0.6 %; EOSINOPHILS % (AUTO) 0.7 %; HGB - HEMOGLOBIN 14.2 g/dL (12.0-16.0); LYMPHOCYTES # (AUTO) 0.7 10^3/uL (1.5-3.5); MEAN CORPUSCULAR HEMOGLOBIN 27.8 pg (27.0-31.0); MEAN CORPUSCULAR HGB CONC 33.3 g/dL (32.0-36.0); MEAN CORPUSCULAR VOLUME 83.5 fL (81.0-99.0); MEAN PLATELET VOLUME 8.5 fL (7.9-10.8); MONOCYTES # (AUTO) 0.2 10^3/uL (0.0-1.0); MONOCYTES % (AUTO) 3.4 %; NEUTROPHILS # (AUTO) 5.8 10^3/uL (1.5-6.6); NEUTROPHILS % (AUTO) 85.3 %; PLT - PLATELET COUNT 259 10^3/uL (130-450); RED CELL DISTRIBUTION WIDTH 13.6 % (12.0-15.0); WHITE BLOOD COUNT 6.8 x10^3/uL (4.8-10.8)
[2018-07-17 03:11] LABS: ALBUMIN 4.1 g/dL (3.2-5.5); ALBUMIN/GLOBULIN RATIO 1.1 (1.0-2.2); BILIRUBIN,TOTAL 0.6 mg/dL (0.2-1.0); CALCIUM 9.8 mg/dL (8.5-10.3); TOTAL PROTEIN 7.7 g/dL (6.7-8.2)
[2018-07-17 03:21] LABS: BILIRUBIN,URINE NEGATIVE (NEGATIVE); GLUCOSE, URINE (UA) >=1000 mg/dL (NEGATIVE); KETONES,URINE (UA) NEGATIVE (NEGATIVE); LEUKOCYTE ESTERASE, URINE NEGATIVE (NEGATIVE); NITRITE,URINE NEGATIVE (NEGATIVE); OCCULT BLOOD,URINE TRACE-INTA (NEGATIVE); PH,URINE 5.5 PH (5.0-7.5); PROTEIN,URINE NEGATIVE (NEGATIVE); UROBILINOGEN,URINE 0.2 (NORMAL) E.U./dL (NORMAL)
[2018-07-17 03:25] LABS: CLARITY,URINE CLEAR (CLEAR)
[2018-07-17 05:19] VITALS: BP 191/100
== END 2018-07-17 05:25 | disposition home or self-care (01) ==
LOC: EDUNIT# → ED 02:33
DX: R11.2 Nausea with vomiting, unspecified (principal); R19.7 Diarrhea, unspecified; T62.91XA Toxic effect of unspecified noxious substance eaten as food, accidental (unintentional), initial encounter; I10 Essential (primary) hypertension; E78.00 Pure hypercholesterolemia, unspecified; E11.9 Type 2 diabetes mellitus without complications; Z79.4 Long term (current) use of insulin
CPT/HCPCS: 36415; 80053; 81001; 81003; 83690; 84484; 85025; 87086; 96361; 96374; 96375; 99283; 99284

== ENCOUNTER 2018-11-19 10:38 | Outpatient (CLI) | payer MEDICAID | END 2018-11-19 10:39 | disposition home or self-care (01) | LOC: DI 10:38 | PROVIDERS: ATTEND Family Medicine | DX: Z12.31 Encounter for screening mammogram for malignant neoplasm of breast (principal); R92.8 Other abnormal and inconclusive findings on diagnostic imaging of breast; Z80.3 Family history of malignant neoplasm of breast | CPT/HCPCS: 77067 ==

== ENCOUNTER 2019-02-22 19:33 | Outpatient (CLI) | payer MEDICAID | END 2019-02-22 19:34 | disposition critical access hospital (66) | LOC: EMS 19:33 | PROVIDERS: ATTEND Surgery | DX: R09.89 Other specified symptoms and signs involving the circulatory and respiratory systems (principal); R05 Cough | CPT/HCPCS: A0425; A0427; A0999 ==

== ENCOUNTER 2019-02-22 19:47 | Emergency (ER) | payer MEDICAID ==
[2019-02-22 19:55] VITALS: BP 155/89
[2019-02-22] MEDS ORDERED: predniSONE 20 MG TABLET PO STA (20:04)
[2019-02-22] MEDS ORDERED: LEVALBUTEROL 1.25 MG/3 ML NEB INH STA (20:04)
--- NOTE | 2019-02-22 20:38 | ED Physician Documentation ---
History of Present Illness - Stated complaint Stated Complaint: COUGH - Chief complaint Chief Complaint: Resp - History obtained from History obtained from: Patient, EMS - History of Present Illness Timing: How many days ago (several days) Pain level max: 0 Pain level now: 0 - Additonal information Additional information: 58-year-old female states that she feels like her asthma is flaring. States she normally gets placed on steroids when this happened. No fevers. Mild cough. No vomiting. No chest pain. Received nebulizer treatments with EMS and is starting to feel better. No abdominal pain. No diarrhea. Worse with exertion. Better with rest. Review of Systems Constitutional: denies: Fever, Chills Throat: denies: Sore throat Cardiac: denies: Chest pain / pressure, Palpitations GI: denies: Vomiting, Diarrhea Skin: denies: Rash Musculoskeletal: denies: Neck pain, Back pain Neurologic: denies: Headache PD PAST MEDICAL HISTORY - Past Medical History Cardiovascular: Hypertension, High cholesterol, Other Respiratory: Asthma, Shortness of breath, Sleep apnea, CPAP use Endocrine/Autoimmune: Type 2 diabetes GI: GERD, Chronic diarrhea, Chronic constipation, Other : None HEENT: Chronic vision loss, Chronic sinusitis Psych: Depression, Anxiety, Panic attacks, Post traumatic stress disorder, Claustrophobia Musculoskeletal: Osteoarthritis, Fibromyalgia, Chronic back pain, Other Derm: Psoriasis, Rosacea - Past Surgical History Past Surgical History: Yes General: Colonoscopy, EGD, Other Ortho: Arthroscopic surgery, Spine surgery, 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, 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, 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, Other - Present Medications Home Medications: Ambulatory Orders Medication Instructions Recorded Confirmed Fenofibrate [Lofibra] 160 mg PO BID 02/24/13 01/27/18 Lansoprazole 30 mg PO DAILY 02/24/13 01/27/18 Mirtazapine [Remeron] 15 mg PO QPM 02/24/13 01/27/18 Montelukast [Singulair] 10 mg PO QPM 02/24/13 01/27/18 Prazosin HCl [Minipress] 10 mg PO DAILY PM 02/24/13 01/27/18 Venlafaxine ER [Effexor ER] 375 mg PO DAILY 02/24/13 01/27/18 busPIRone [Buspar] 10 mg PO DAILY 02/24/13 01/27/18 Naproxen [Naprosyn] 500 mg PO BID PRN #0 tablet 05/12/16 01/27/18 metFORMIN [Glucophage] 1,000 mg PO BIDWM tablet 05/12/16 01/27/18 Bisoprolol Fumarate 5 mg PO DAILY 11/11/16 01/27/18 Calcium Carbonate/Vitamin D3 1 each PO DAILY 01/27/18 01/27/18 [Calcium 500-Vit D3 200 Tablet] Cetirizine [ZyrTEC] 10 mg PO DAILY 01/27/18 01/27/18 Cholecalciferol [Vitamin D3] 5,000 unit PO BID 01/27/18 01/27/18 Empagliflozin [Jardiance] 10 mg PO DAILY 01/27/18 01/27/18 Fluticasone [Flonase] 4 sprays MELISSA DAILY 01/27/18 01/27/18 Lactobacillus Acidophilus 1 each PO DAILY 01/27/18 01/27/18 [Acidophilus Lactobacilli] Levalbuterol [Xopenex] 1.25 mg INH Q8HR 01/27/18 01/27/18 Losartan [Cozaar] 50 mg PO BID 01/27/18 01/27/18 Dietrich-3 Acid Ethyl Esters [Lovaza] 1 gm PO BID 01/27/18 01/27/18 Omega3/Dha/Epa/Fish Oil/Vit D3 1 each PO DAILY 01/27/18 01/27/18 [Fish Oil-Vit D3 Softgel] Triamcinolone 0.1% Oint [Kenalog 1 applic TOP BID 01/27/18 01/27/18 0.1% Oint] glipiZIDE [Glucotrol] 10 mg PO BID 01/27/18 01/27/18 Clotrimazole 1 gm TP TID #1 cream..g. 02/24/18 Tramadol HCl 50 mg 02/24/18 Valbenazine Tosylate [Ingrezza] 80 mg 02/24/18 Baclofen 10 mg PO 04/07/18 04/07/18 Dicyclomine [Bentyl] 10 mg PO QID 07/17/18 07/17/18 Insulin Aspart Prot/Insuln Asp 15 units SUBQ BID 07/17/18 07/17/18 [Novolog Mix 70-30 Flexpen Syrn] Tizanidine HCl [Zanaflex] 10 mg PO QPM 07/17/18 07/17/18 predniSONE [Deltasone] 10 mg PO [id number] #42 tab 02/22/19 - Allergies Allergies/Adverse Reactions: Allergies Allergy/AdvReac Type Severity Reaction Status Date / Time acetaminophen [From Tylenol] Allergy Severe Anaphylaxis Verified 02/22/19 19:55 adhesive tape Allergy Severe Swelling/Er Verified 02/22/19 19:55 ythema corn [[place]] Allergy Severe Cramps Verified 02/22/19 19:55 ibuprofen [From Motrin] Allergy Severe Anaphylaxis Verified 02/22/19 19:55 latex Allergy Severe Edema/Eryth Verified 02/22/19 19:55 cristopher tetanus toxoid, adsorbed Allergy Severe Local Verified 02/22/19 19:55 swelling/Pain theophylline Allergy Severe Anaphylaxis Verified 02/22/19 19:55 wheat Allergy Intermediate Cramps Verified 02/22/19 19:55 aripiprazole [From Abilify] Allergy Unknown Verified 02/22/19 19:55 benztropine Allergy Edema Verified 02/22/19 19:55 desvenlafaxine Allergy Unknown Verified 02/22/19 19:55 duloxetine Allergy Unknown Verified 02/22/19 19:55 gabapentin Allergy GI upset Verified 02/22/19 19:55 gluten Allergy GI upset Verified 02/22/19 19:55 loratadine Allergy Unknown Verified 02/22/19 19:55 spironolactone Allergy Unknown Verified 02/22/19 19:55 zolpidem Allergy Unknown Verified 02/22/19 19:55 bupropion AdvReac Depression Verified 02/22/19 19:55 lisinopril AdvReac Cough Verified 02/22/19 19:55 oats Allergy Intermediate Cramps Uncoded 07/17/18 02:40 rice Allergy Intermediate Cramps Uncoded 07/17/18 02:40 milk AdvReac Intermediate Cramps Uncoded 07/17/18 02:40 - Social History Does the pt smoke?: No Smoking Status: Never smoker Does the pt drink ETOH?: No Does the pt have substance abuse?: No - Immunizations Immunizations are current?: Yes - POLST Patient has POLST: Yes PD ED PE NORMAL - Vitals Vital signs reviewed: Yes - General General: Alert and oriented X 3, No acute distress, Well developed/nourished - HEENT HEENT: Ears normal, Moist mucous membranes, Pharynx benign - Neck Neck: Supple, no meningeal sign - Cardiac Cardiac: RRR - Respiratory Respiratory: No respiratory distress, Other (Mild wheezing bilaterally) - Abdomen Abdomen: Soft, Non tender, Non distended - Derm Derm: Warm and dry, No rash - Neuro Neuro: Alert and oriented X 3 - Psych Psych: Normal mood, Normal affect Results - Vitals Vitals: Vital Signs - 24 hr 02/22/19 02/22/19 19:52 20:15 Temperature 37.0 C Heart Rate 83 83 Respiratory 18 22 Rate Blood Pressure 155/89 H O2 Saturation 98 Oxygen O2 Source Room air PD MEDICAL DECISION MAKING - ED course Complexity details: considered differential, d/w patient ED course: 58-year-old female with what appears to be an asthma exacerbation. Will place on a steroid taper for home. She also does not have a spacer for inhaler and this is given to her. No indication for chest x-ray at this time. No hypoxia. No fevers. No evidence of pneumonia. Patient counseled regarding signs and symptoms for which I believe and urgent re-evaluation would be necessary. Patient with good understanding of and agreement to plan and is comfortable going home at this time This document was made in part using voice recognition software. While efforts are made to proofread this document, sound alike and grammatical errors may occur. Departure - Departure Disposition: 01 Home, Self Care Clinical Impression: Moderate COPD (chronic obstructive pulmonary disease) Condition: Good Instructions: ED COPD Flare Follow-Up: MATEUSZ BROWN DO [Primary Care Provider] - Within 1 week Prescriptions: predniSONE [Deltasone] 10 mg PO [id number] #42 tab Comments: Use the medications as prescribed. Follow-up with your doctor for further care. Return if you worsen Discharge Date/Time: 02/22/19 20:53
== END 2019-02-22 20:53 | disposition home or self-care (01) ==
LOC: EDUNIT# → ED 19:47
DX: J44.9 Chronic obstructive pulmonary disease, unspecified (principal); I10 Essential (primary) hypertension; E11.9 Type 2 diabetes mellitus without complications; Z79.4 Long term (current) use of insulin
CPT/HCPCS: 94640; 99283; 99284; J7512

== ENCOUNTER 2019-03-04 14:00 | Outpatient (CLI) | payer MEDICAID ==
--- NOTE | 2019-03-05 00:12 | XRAY Report ---
Reason: COUGH Procedure Date: 03/04/2019 Accession Number: [id number] / [id number] Procedure: XRN - Chest 2 View X-Ray CPT Code: 08071 FULL RESULT: EXAM: CHEST RADIOGRAPHY EXAM DATE: 03/04/2019 02:17 PM. CLINICAL HISTORY: COUGH. COMPARISON: CHEST 2 VIEW PA/LAT 08/11/2015 6:34 PM. TECHNIQUE: 2 views. FINDINGS: Lungs/Pleura: No consolidation, airspace disease, pleural effusion or pneumothorax. Mediastinum: Heart and mediastinal contours are unremarkable. Other: Cervical spine fusion hardware. IMPRESSION: No acute cardiopulmonary disease seen. RADIA
== END 2019-03-04 14:01 | disposition home or self-care (01) ==
LOC: DI.N 14:00
PROVIDERS: ATTEND Family Medicine
DX: R05 Cough (principal)
CPT/HCPCS: 71046

== ENCOUNTER 2019-03-17 19:42 | Outpatient (CLI) | payer MEDICAID | END 2019-03-17 19:43 | disposition critical access hospital (66) | LOC: EMS 19:42 | PROVIDERS: ATTEND Surgery | DX: R09.89 Other specified symptoms and signs involving the circulatory and respiratory systems (principal); R06.00 Dyspnea, unspecified | CPT/HCPCS: A0425; A0427; A0999 ==

== ENCOUNTER 2019-03-17 20:00 | Emergency (ER) | payer MEDICAID ==
--- NOTE | 2019-03-17 20:12 | ED Physician Documentation ---
PD HPI DYSPNEA - Stated complaint Stated Complaint: SOA - Chief complaint Chief Complaint: Resp - History obtained from History obtained from: Patient - History of Present Illness Timing - onset: Today Timing - onset during: Rest Timing - duration: Hours Timing - details: Gradual onset, Waxing and waning Pain level now: 7 Improved by: Rest Worsened by: Exertion Associated symptoms: Cough. No: Fever, Hemoptysis, Wheezing, Chest pain / discomfort ("tightness in my throat" but not chest pain per se) Recently seen: Emergency Dept - Additional information Additional information: T+R from this ED earlier this month for dyspnea, was started on 10-day prednisone taper which provided excellent symptomatic relief. Since this morning, she has had increasing dyspnea, then developed nausea and diarrhea (diarrhea has resolve after taking anti-diarrheal earlier today). Also c/o "tightness in my throat" and "difficulty swallowing" (per patient) . BIBA, given zofran and benadryl (benadryl for the throat tightness and difficulty swallowing, patient says she was worried this might be an allergic reaction). Patient started a prednisone taper 40mg today, first dose earlier today per her PMD's previous recommendation (which is to have such a taper on hand and start it if she gets symptoms of either dyspnea or allergic reaction). Review of Systems Constitutional: reports: Reviewed and negative Cardiac: reports: Reviewed and negative Respiratory: reports: Dyspnea, Cough. denies: Hemoptysis, Wheezing GI: reports: Nausea, Diarrhea (resolved). denies: Abdominal Pain, Vomiting Musculoskeletal: reports: Reviewed and negative Neurologic: reports: Reviewed and negative PD PAST MEDICAL HISTORY - Past Medical History Cardiovascular: Hypertension, High cholesterol, Other Respiratory: Asthma, COPD, Shortness of breath, Sleep apnea, CPAP use Endocrine/Autoimmune: Type 2 diabetes GI: GERD, Chronic diarrhea, Chronic constipation, Other : None HEENT: Chronic vision loss, Chronic sinusitis Psych: Depression, Anxiety, Panic attacks, Post traumatic stress disorder, Claustrophobia Musculoskeletal: Osteoarthritis, Fibromyalgia, Chronic back pain, Other Derm: Psoriasis, Rosacea - Past Surgical History Past Surgical History: Yes General: Colonoscopy, EGD, Other Ortho: Arthroscopic surgery, Spine surgery, 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, 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, 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, Other - Present Medications Home Medications: Ambulatory Orders Medication Instructions Recorded Confirmed Fenofibrate [Lofibra] 160 mg PO BID 02/24/13 01/27/18 Lansoprazole 30 mg PO DAILY 02/24/13 01/27/18 Mirtazapine [Remeron] 15 mg PO QPM 02/24/13 01/27/18 Montelukast [Singulair] 10 mg PO QPM 02/24/13 01/27/18 Prazosin HCl [Minipress] 10 mg PO DAILY PM 02/24/13 01/27/18 Venlafaxine ER [Effexor ER] 375 mg PO DAILY 02/24/13 01/27/18 busPIRone [Buspar] 10 mg PO DAILY 02/24/13 01/27/18 Naproxen [Naprosyn] 500 mg PO BID PRN #0 tablet 05/12/16 01/27/18 metFORMIN [Glucophage] 1,000 mg PO BIDWM tablet 05/12/16 01/27/18 Bisoprolol Fumarate 5 mg PO DAILY 11/11/16 01/27/18 Calcium Carbonate/Vitamin D3 1 each PO DAILY 01/27/18 01/27/18 [Calcium 500-Vit D3 200 Tablet] Cetirizine [ZyrTEC] 10 mg PO DAILY 01/27/18 01/27/18 Cholecalciferol [Vitamin D3] 5,000 unit PO BID 01/27/18 01/27/18 Empagliflozin [Jardiance] 10 mg PO DAILY 01/27/18 01/27/18 Fluticasone [Flonase] 4 sprays MELISSA DAILY 01/27/18 01/27/18 Lactobacillus Acidophilus 1 each PO DAILY 01/27/18 01/27/18 [Acidophilus Lactobacilli] Levalbuterol [Xopenex] 1.25 mg INH Q8HR 01/27/18 01/27/18 Losartan [Cozaar] 50 mg PO BID 01/27/18 01/27/18 Malone-3 Acid Ethyl Esters [Lovaza] 1 gm PO BID 01/27/18 01/27/18 Omega3/Dha/Epa/Fish Oil/Vit D3 1 each PO DAILY 01/27/18 01/27/18 [Fish Oil-Vit D3 Softgel] Triamcinolone 0.1% Oint [Kenalog 1 applic TOP BID 01/27/18 01/27/18 0.1% Oint] glipiZIDE [Glucotrol] 10 mg PO BID 01/27/18 01/27/18 Clotrimazole 1 gm TP TID #1 cream..g. 02/24/18 Tramadol HCl 50 mg 02/24/18 Valbenazine Tosylate [Ingrezza] 80 mg 02/24/18 Baclofen 10 mg PO 04/07/18 04/07/18 Dicyclomine [Bentyl] 10 mg PO QID 07/17/18 07/17/18 Insulin Aspart Prot/Insuln Asp 15 units SUBQ BID 07/17/18 07/17/18 [Novolog Mix 70-30 Flexpen Syrn] Tizanidine HCl [Zanaflex] 10 mg PO QPM 07/17/18 07/17/18 predniSONE [Deltasone] 10 mg PO [id number] #42 tab 02/22/19 - Allergies Allergies/Adverse Reactions: Allergies Allergy/AdvReac Type Severity Reaction Status Date / Time acetaminophen [From Tylenol] Allergy Severe Anaphylaxis Verified 03/17/19 20:09 adhesive tape Allergy Severe Swelling/Er Verified 03/17/19 20:09 ythema corn [[place]] Allergy Severe Cramps Verified 03/17/19 20:09 ibuprofen [From Motrin] Allergy Severe Anaphylaxis Verified 03/17/19 20:09 latex Allergy Severe Edema/Eryth Verified 03/17/19 20:09 cristopher tetanus toxoid, adsorbed Allergy Severe Local Verified 03/17/19 20:09 swelling/Pain theophylline Allergy Severe Anaphylaxis Verified 03/17/19 20:09 wheat Allergy Intermediate Cramps Verified 03/17/19 20:09 aripiprazole [From Abilify] Allergy Unknown Verified 03/17/19 20:09 benztropine Allergy Edema Verified 03/17/19 20:09 desvenlafaxine Allergy Unknown Verified 03/17/19 20:09 duloxetine Allergy Unknown Verified 03/17/19 20:09 gabapentin Allergy GI upset Verified 03/17/19 20:09 gluten Allergy GI upset Verified 03/17/19 20:09 loratadine Allergy Unknown Verified 03/17/19 20:09 spironolactone Allergy Unknown Verified 03/17/19 20:09 zolpidem Allergy Unknown Verified 03/17/19 20:09 bupropion AdvReac Depression Verified 03/17/19 20:09 lisinopril AdvReac Cough Verified 03/17/19 20:09 oats Allergy Intermediate Cramps Uncoded 07/17/18 02:40 rice Allergy Intermediate Cramps Uncoded 07/17/18 02:40 milk AdvReac Intermediate Cramps Uncoded 07/17/18 02:40 - Social History Does the pt smoke?: No Smoking Status: Never smoker Does the pt drink ETOH?: No Does the pt have substance abuse?: No - Immunizations Immunizations are current?: Yes - POLST Patient has POLST: Yes PD ED PE NORMAL - Vitals Vital signs reviewed: Yes - General General: Alert and oriented X 3, No acute distress, Well developed/nourished - HEENT HEENT: Moist mucous membranes - Neck Neck: Supple, no meningeal sign - Cardiac Cardiac: RRR, No murmur, No gallop, No rub - Respiratory Respiratory: No respiratory distress, Clear bilaterally - Abdomen Abdomen: Soft, Non tender - Derm Derm: Normal color, Warm and dry - Extremities Extremities: No edema Results - Vitals Vitals: Vital Signs - 24 hr 03/17/19 03/17/19 03/17/19 20:05 20:30 21:22 Temperature 36.7 C Heart Rate 84 85 81 Respiratory 18 18 22 Rate Blood Pressure 125/58 L 145/59 H 112/81 H O2 Saturation 95 98 96 03/17/19 03/17/19 22:02 23:02 Temperature Heart Rate 79 79 Respiratory 21 17 Rate Blood Pressure 127/66 122/58 L O2 Saturation 94 95 Oxygen O2 Source Room air - EKG (time done) No standard instances Rate: Rate (enter#) (83) Rhythm: NSR [place]: Normal Intervals: Normal MA QRS: Normal, Low voltage Ischemia: Normal ST segments - Labs Labs: Laboratory Tests 03/17/19 03/17/19 03/17/19 20:39 20:39 20:39 WBC 6.3 RBC 4.57 Hgb 11.2 L Hct 36.7 L MCV 80.3 L MCH 24.5 L MCHC 30.5 L RDW 14.7 Plt Count 221 MPV 10.1 Neut # (Auto) 5.7 Lymph # (Auto) 0.4 L [place] # (Auto) 0.2 Eos # (Auto) 0.0 Baso # (Auto) 0.0 Absolute Nucleated RBC 0.00 Nucleated RBC % 0.0 Sodium 134 L Potassium 3.6 Chloride 98 L Carbon Dioxide 22 Anion Gap 14.0 H BUN 31 H Creatinine 1.0 Estimated GFR (MDRD) 57 L Glucose 415 H Calcium 8.8 Total Bilirubin 0.8 AST 26 ALT 30 Alkaline Phosphatase 85 Troponin I High Sens B-Natriuretic Peptide 45 Total Protein 7.2 Albumin 3.8 Globulin 3.4 Albumin/Globulin Ratio 1.1 Lipase 38 Serum Ketones 03/17/19 03/17/19 20:39 20:39 WBC RBC Hgb Hct MCV MCH MCHC RDW Plt Count MPV Neut # (Auto) Lymph # (Auto) [place] # (Auto) Eos # (Auto) Baso # (Auto) Absolute Nucleated RBC Nucleated RBC % Sodium Potassium Chloride Carbon Dioxide Anion Gap BUN Creatinine Estimated GFR (MDRD) Glucose Calcium Total Bilirubin AST ALT Alkaline Phosphatase Troponin I High Sens 3.7 B-Natriuretic Peptide Total Protein Albumin Globulin Albumin/Globulin Ratio Lipase Serum Ketones NEGATIVE - Rads (name of study) chest xray Radiology: Prelim report reviewed, See rad report PD MEDICAL DECISION MAKING - ED course Complexity details: reviewed old records, reviewed results, re-evaluated patient, considered differential, d/w patient Departure - Departure Disposition: 01 Home, Self Care Clinical Impression: Dyspnea, Hyperglycemia Condition: Good Instructions: ED Hyperglycemia Diabetic, ED Dyspnea Shortness of Breath Follow-Up: MATEUSZ BROWN DO [Primary Care Provider] - Discharge Date/Time: 03/17/19 23:39
[2019-03-17 20:45] LABS: BASOPHILS % (AUTO) 0.3 %; EOSINOPHILS % (AUTO) 0.3 %; HGB - HEMOGLOBIN 11.2 g/dL (12.0-16.0); LYMPHOCYTES # (AUTO) 0.4 10^3/uL (1.5-3.5); LYMPHOCYTES % (AUTO) 6.6 %; MEAN CORPUSCULAR HEMOGLOBIN 24.5 pg (27.0-31.0); MEAN CORPUSCULAR HGB CONC 30.5 g/dL (32.0-36.0); MEAN CORPUSCULAR VOLUME 80.3 fL (81.0-99.0); MEAN PLATELET VOLUME 10.1 fL (7.9-10.8); MONOCYTES # (AUTO) 0.2 10^3/uL (0.0-1.0); MONOCYTES % (AUTO) 2.7 %; NEUTROPHILS # (AUTO) 5.7 10^3/uL (1.5-6.6); NEUTROPHILS % (AUTO) 89.8 %; PLT - PLATELET COUNT 221 10^3/uL (130-450); RED BLOOD COUNT 4.57 10^6/uL (4.20-5.40); RED CELL DISTRIBUTION WIDTH 14.7 % (12.0-15.0); WHITE BLOOD COUNT 6.3 x10^3/uL (4.8-10.8)
[2019-03-17] MEDS ORDERED: ONDANSETRON 4 MG/2 ML VIAL IVP STA (20:47)
[2019-03-17] MEDS ORDERED: SODIUM CHLORIDE 0.9% 1,000 ML IV STA ×2 (20:47→21:06)
[2019-03-17 20:59] LABS: ALBUMIN 3.8 g/dL (3.2-5.5); ALBUMIN/GLOBULIN RATIO 1.1 (1.0-2.2); BILIRUBIN,TOTAL 0.8 mg/dL (0.2-1.0); CALCIUM 8.8 mg/dL (8.5-10.3); TOTAL PROTEIN 7.2 g/dL (6.7-8.2)
[2019-03-17] MEDS ORDERED: INSULIN REGULAR HUMAN 100 UNIT/1 ML 10 ML MDV IVP STA ×2 (21:04→22:14)
--- NOTE | 2019-03-17 21:43 | XRAY Report ---
Reason: dyspnea, chest discomfort Procedure Date: 03/17/2019 Accession Number: [id number] / [id number] Procedure: XR - Chest 2 View X-Ray CPT Code: 09615 FULL RESULT: EXAM: CHEST RADIOGRAPHY EXAM DATE: 03/17/2019 09:07 PM. CLINICAL HISTORY: Dyspnea, chest discomfort. COMPARISON: CHEST 2 VIEW 03/04/2019 2:23 PM. TECHNIQUE: 2 views. FINDINGS: Lungs/Pleura: No significant interval change. No consolidation or pneumothorax. Lung volumes are stable. Mediastinum: Heart size within normal limits for technique. Negative for pleural effusion. Trachea is midline. Other: None. IMPRESSION: Negative for an acute cardiopulmonary abnormality. RADIA
[2019-03-17 23:02] VITALS: BP 122/58
== END 2019-03-17 23:39 | disposition home or self-care (01) ==
LOC: EDUNIT# → ED 20:00
DX: R06.00 Dyspnea, unspecified (principal); E11.65 Type 2 diabetes mellitus with hyperglycemia; I10 Essential (primary) hypertension; Z79.84 Long term (current) use of oral hypoglycemic drugs
CPT/HCPCS: 36415; 71046; 80053; 82009; 83690; 83880; 84484; 85025; 93005; 96361; 96374; 99284; J1815

== ENCOUNTER 2019-06-14 21:27 | Outpatient (CLI) | payer MEDICAID | END 2019-06-14 21:28 | disposition critical access hospital (66) | LOC: EMS 21:27 | PROVIDERS: ATTEND Surgery | DX: R11.2 Nausea with vomiting, unspecified (principal) | CPT/HCPCS: A0425; A0427; A0999 ==

== ENCOUNTER 2019-06-14 21:44 | Emergency (ER) | payer MEDICAID ==
--- NOTE | 2019-06-14 21:58 | ED Physician Documentation ---
PD HPI NVD - Stated complaint Stated Complaint: N/V - Chief complaint Chief Complaint: Abd Pain - History obtained from History obtained from: Patient - History of Present Illness Timing - onset: Enter time (11:30), Today Timing - duration: Hours Timing - details: Gradual onset, Waxing and waning Pain level now: 9 (left clavicle) Associated symptoms: No: Fever, Abdominal pain Improved by: Other (nothing) Worsened by: Eating (any PO intake) Similar symptoms before: No diagnosis Recently seen: Not recently seen - Additonal information Additional information: c/o nausea and vomiting since 11:30 this morning, progressing until she can no longer keep meds or sips of water down. She says she has had similar episodes over past 6 weeks but these were either self-limited or controlled with compazine and thus she did not seek medical attention. Recently sustained left scapular fracture (left scapula approximately 1 month ago), and has ongoing pain from this injury. Review of Systems Constitutional: reports: Reviewed and negative Cardiac: reports: Reviewed and negative Respiratory: reports: Reviewed and negative GI: reports: Nausea, Vomiting. denies: Abdominal Pain, Abdominal Swelling, Constipation, Diarrhea : denies: Dysuria, Frequency Skin: reports: Reviewed and negative Musculoskeletal: reports: Other (left scapula pain). denies: Neck pain, Back pain Neurologic: denies: Generalized weakness, Focal weakness, Numbness, Headache PD PAST MEDICAL HISTORY - Past Medical History Past Medical History: Yes Cardiovascular: Hypertension, High cholesterol, Other Respiratory: Asthma, COPD, Shortness of breath, Sleep apnea, CPAP use Neuro: None Endocrine/Autoimmune: Type 2 diabetes GI: GERD, Chronic diarrhea, Chronic constipation, Other : None HEENT: Chronic vision loss, Chronic sinusitis Psych: Depression, Anxiety, Panic attacks, Post traumatic stress disorder, Claustrophobia Musculoskeletal: Osteoarthritis, Fibromyalgia, Chronic back pain, Other Derm: Psoriasis, Rosacea - Past Surgical History Past Surgical History: Yes General: Colonoscopy, EGD, Other Ortho: Arthroscopic surgery, Spine surgery, 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, 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, 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, Other - Present Medications Home Medications: Ambulatory Orders Medication Instructions Recorded Confirmed Fenofibrate [Lofibra] 160 mg PO BID 02/24/13 06/15/19 Lansoprazole 30 mg PO DAILY 02/24/13 06/15/19 Mirtazapine [Remeron] 15 mg PO QPM 02/24/13 06/15/19 Montelukast [Singulair] 10 mg PO QPM 02/24/13 06/15/19 Prazosin HCl [Minipress] 12 mg PO DAILY PM 02/24/13 06/15/19 Naproxen [Naprosyn] 500 mg PO BID PRN #0 tablet 05/12/16 06/15/19 Calcium Carbonate/Vitamin D3 1 each PO DAILY 01/27/18 06/15/19 [Calcium 500-Vit D3 200 Tablet] Cholecalciferol [Vitamin D3] 5,000 unit PO BID 01/27/18 06/15/19 Empagliflozin [Jardiance] 10 mg PO DAILY 01/27/18 06/15/19 Fluticasone [Flonase] 2 sprays MELISSA DAILY 01/27/18 06/15/19 Lactobacillus Acidophilus 1 each PO DAILY 01/27/18 06/15/19 [Acidophilus Lactobacilli] Levalbuterol [Xopenex] 1.25 mg INH Q8HR 01/27/18 06/15/19 Losartan [Cozaar] 50 mg PO BID 01/27/18 06/15/19 Omega3/Dha/Epa/Fish Oil/Vit D3 1 each PO DAILY 01/27/18 06/15/19 [Fish Oil-Vit D3 Softgel] Triamcinolone 0.1% Oint [Kenalog 1 applic TOP BID 01/27/18 01/27/18 0.1% Oint] glipiZIDE [Glucotrol] 10 mg PO DAILY 01/27/18 06/15/19 Clotrimazole 1 gm TP TID #1 cream..g. 02/24/18 06/15/19 Tramadol HCl 100 mg PO TID 02/24/18 06/15/19 Valbenazine Tosylate [Ingrezza] 80 mg PO DAILY 02/24/18 06/15/19 Dicyclomine [Bentyl] 10 mg PO QID 07/17/18 06/15/19 Insulin Aspart Prot/Insuln Asp 24 units SUBQ BID 07/17/18 06/15/19 [Novolog Mix 70-30 Flexpen Syrn] Tizanidine HCl [Zanaflex] 4 mg PO TID 07/17/18 06/15/19 predniSONE [Deltasone] 10 mg PO [id number] #42 tab 02/22/19 06/15/19 Beclomethasone 40 Mcg [Qvar 40] 2 puffs IH BID 06/15/19 06/15/19 Buspirone HCl 30 mg PO BID 06/15/19 06/15/19 Clobetasol 0.05% Oint [Temovate 1 applic TOP BID 06/15/19 06/15/19 0.05% Oint] Ergocalciferol [Vitamin D2] 1 cap PO 06/15/19 Fexofenadine HCl [Shellie Allergy] 1 tab PO DAILY 06/15/19 06/15/19 Fluconazole 150 mg PO DAILY PRN 06/15/19 06/15/19 Gabapentin 1 cap PO TID 06/15/19 06/15/19 HYDROmorphone [Dilaudid] 2 mg PO Q4HR PRN 06/15/19 06/15/19 Insulin Glargine [Lantus Solostar] 40 units SUBQ BID 06/15/19 06/15/19 Ketorolac Tromethamine 1 - 2 ml IV DAILY 06/15/19 06/15/19 Metformin HCl [Glucophage Xr] 500 mg PO BID 06/15/19 06/15/19 PARoxetine HCl [Paroxetine HCl] 20 mg PO DAILY 06/15/19 06/15/19 Prochlorperazine [Compazine] 1 - 2 tab PO Q6HR PRN 06/15/19 06/15/19 Ramelteon 8 mg PO QPM 06/15/19 06/15/19 Trazodone HCl 50 mg PO QPM 06/15/19 06/15/19 - Allergies Allergies/Adverse Reactions: Allergies Allergy/AdvReac Type Severity Reaction Status Date / Time acetaminophen [From Tylenol] Allergy Severe Anaphylaxis Verified 06/15/19 01:39 adhesive tape Allergy Severe Swelling/Er Verified 06/15/19 01:39 ythema corn [[place]] Allergy Severe Cramps Verified 06/15/19 01:39 ibuprofen [From Motrin] Allergy Severe Anaphylaxis Verified 06/15/19 01:39 latex Allergy Severe Edema/Eryth Verified 06/15/19 01:39 cristopher tetanus toxoid, adsorbed Allergy Severe Local Verified 06/15/19 01:39 swelling/Pain theophylline Allergy Severe Anaphylaxis Verified 06/15/19 01:39 wheat Allergy Intermediate Cramps Verified 06/15/19 01:39 aripiprazole [From Abilify] Allergy Unknown Verified 06/15/19 01:39 benztropine Allergy Edema Verified 06/15/19 01:39 desvenlafaxine Allergy Unknown Verified 06/15/19 01:39 duloxetine Allergy Unknown Verified 06/15/19 01:39 gabapentin Allergy GI upset Verified 06/15/19 01:39 gluten Allergy GI upset Verified 06/15/19 01:39 loratadine Allergy Unknown Verified 06/15/19 01:39 spironolactone Allergy Unknown Verified 06/15/19 01:39 zolpidem Allergy Unknown Verified 06/15/19 01:39 bupropion AdvReac Depression Verified 06/15/19 01:39 lisinopril AdvReac Cough Verified 06/15/19 01:39 oats Allergy Intermediate Cramps Uncoded 06/15/19 01:39 rice Allergy Intermediate Cramps Uncoded 06/15/19 01:39 milk AdvReac Intermediate Cramps Uncoded 06/15/19 01:39 - Social History Does the pt smoke?: No Smoking Status: Never smoker Does the pt drink ETOH?: No Does the pt have substance abuse?: No - Immunizations Immunizations are current?: Yes - POLST Patient has POLST: Yes PD ED PE NORMAL - Vitals Vital signs reviewed: Yes - General General: Alert and oriented X 3, No acute distress, Well developed/nourished - HEENT HEENT: Other (dry mucous membranes) - Neck Neck: Supple, no meningeal sign - Cardiac Cardiac: RRR, No murmur, No gallop, No rub - Respiratory Respiratory: No respiratory distress, Clear bilaterally - Abdomen Abdomen: Normal bowel sounds, Soft, Non tender, Non distended - Back Back: No CVA TTP - Derm Derm: Normal color, Warm and dry - Extremities Extremities: No edema - Neuro Neuro: Alert and oriented X 3 Results - Vitals Vitals: Vital Signs - 24 hr 06/14/19 06/15/19 06/15/19 21:47 00:09 00:11 Temperature 37.5 C Heart Rate 96 106 H 102 H Respiratory 16 16 16 Rate Blood Pressure 221/101 H 231/119 H O2 Saturation 95 94 94 06/15/19 06/15/19 06/15/19 00:35 01:25 01:43 Temperature Heart Rate 93 95 95 Respiratory 18 18 16 Rate Blood Pressure 242/115 H 216/109 H 196/98 H O2 Saturation 97 95 95 Oxygen O2 Source Room air - Labs Labs: Laboratory Tests 06/14/19 06/14/19 06/14/19 22:04 22:30 22:30 WBC 6.7 RBC 4.96 Hgb 12.3 Hct 39.8 MCV 80.2 L MCH 24.8 L MCHC 30.9 L RDW 17.2 H Plt Count 276 MPV 9.3 Neut # (Auto) 5.2 Lymph # (Auto) 1.0 L [place] # (Auto) 0.4 Eos # (Auto) 0.1 Baso # (Auto) 0.0 Absolute Nucleated RBC 0.00 Nucleated RBC % 0.0 Sodium 139 Potassium 3.7 Chloride 101 Carbon Dioxide 27 Anion Gap 11.0 BUN 10 Creatinine 1.0 Estimated GFR (MDRD) 57 L Glucose 172 H Calcium 9.3 Total Bilirubin 1.4 H AST 22 ALT 21 Alkaline Phosphatase 61 Total Protein 7.5 Albumin 4.1 Globulin 3.4 Albumin/Globulin Ratio 1.2 Lipase 28 Urine Color YELLOW Urine Clarity CLEAR Urine pH 5.5 Ur Specific [place] 1.015 Urine Protein NEGATIVE Urine Glucose (UA) >=1000 H Urine Ketones 15 H Urine Occult Blood NEGATIVE Urine Nitrite NEGATIVE Urine Bilirubin NEGATIVE Urine Urobilinogen 0.2 (NORMAL) Ur Leukocyte Esterase NEGATIVE Ur Microscopic Review NOT INDICATED Urine Culture Comments NOT INDICATED Serum Ketones SMALL H PD MEDICAL DECISION MAKING - ED course Complexity details: reviewed old records, reviewed results, re-evaluated patient, considered differential, d/w patient Departure - Departure Disposition: 01 Home, Self Care Clinical Impression: Vomiting Condition: Good Instructions: ED Nausea Vomiting Follow-Up: MATEUSZ BROWN DO [Primary Care Provider] - Discharge Date/Time: 06/15/19 01:51
[2019-06-14] MEDS ORDERED: SODIUM CHLORIDE 0.9% 1,000 ML IV STA ×2 (22:20→23:42)
[2019-06-14] MEDS ORDERED: PROCHLORPERAZINE 10 MG/2 ML VIAL IVP STA (22:20)
[2019-06-14 22:33] LABS: BASOPHILS % (AUTO) 0.6 %; EOSINOPHILS # (AUTO) 0.1 10^3/uL (0.0-0.7); EOSINOPHILS % (AUTO) 1.2 %; HGB - HEMOGLOBIN 12.3 g/dL (12.0-16.0); LYMPHOCYTES % (AUTO) 14.6 %; MEAN CORPUSCULAR HEMOGLOBIN 24.8 pg (27.0-31.0); MEAN CORPUSCULAR HGB CONC 30.9 g/dL (32.0-36.0); MEAN CORPUSCULAR VOLUME 80.2 fL (81.0-99.0); MEAN PLATELET VOLUME 9.3 fL (7.9-10.8); MONOCYTES # (AUTO) 0.4 10^3/uL (0.0-1.0); MONOCYTES % (AUTO) 5.2 %; NEUTROPHILS # (AUTO) 5.2 10^3/uL (1.5-6.6); NEUTROPHILS % (AUTO) 77.8 %; PLT - PLATELET COUNT 276 10^3/uL (130-450); RED BLOOD COUNT 4.96 10^6/uL (4.20-5.40); RED CELL DISTRIBUTION WIDTH 17.2 % (12.0-15.0); WHITE BLOOD COUNT 6.7 x10^3/uL (4.8-10.8)
[2019-06-14] MEDS ORDERED: KETOROLAC 30 MG/ML VIAL IVP STA (22:40)
[2019-06-14 22:41] LABS: KETONES, SERUM (ACETEST) SMALL (NEGATIVE)
[2019-06-14 22:45] LABS: GLUCOSE, URINE (UA) >=1000 mg/dL (NEGATIVE); KETONES,URINE (UA) 15 mg/dL (NEGATIVE); LEUKOCYTE ESTERASE, URINE NEGATIVE (NEGATIVE); NITRITE,URINE NEGATIVE (NEGATIVE); OCCULT BLOOD,URINE NEGATIVE (NEGATIVE); PH,URINE 5.5 PH (5.0-7.5); PROTEIN,URINE NEGATIVE (NEGATIVE); UROBILINOGEN,URINE 0.2 (NORMAL) E.U./dL (NORMAL)
[2019-06-14 22:47] LABS: ALBUMIN 4.1 g/dL (3.2-5.5); ALBUMIN/GLOBULIN RATIO 1.2 (1.0-2.2); ALKALINE PHOSPHATASE 61 IU/L (42-121); ALT ALANINE AMINOTRANSFERASE 21 IU/L (10-60); AST ASPARTATE AMINOTRANSFERASE 22 IU/L (10-42); BILIRUBIN,TOTAL 1.4 mg/dL (0.2-1.0); BUN - BLOOD UREA NITROGEN 10 mg/dL (6-20); CALCIUM 9.3 mg/dL (8.5-10.3); CARBON DIOXIDE - CO2 27 mmol/L (21-32); CHLORIDE 101 mmol/L (101-111); GFR - MDRD 57 (>89); GLUCOSE 172 mg/dL (70-100); LIPASE 28 U/L (22-51); SODIUM 139 mmol/L (135-145); TOTAL PROTEIN 7.5 g/dL (6.7-8.2)
[2019-06-14 22:49] LABS: BILIRUBIN,URINE NEGATIVE (NEGATIVE); CLARITY,URINE CLEAR (CLEAR); ICTOTEST,URINE NEGATIVE
[2019-06-14] MEDS ORDERED: ONDANSETRON 4 MG/2 ML VIAL IVP STA (23:42)
[2019-06-14] MEDS ORDERED: HYDROmorphone 1 MG/ML CARPUJECT IVP STA (23:42)
[2019-06-15] MEDS ORDERED: LOSARTAN 50 MG TABLET PO STA (00:43)
[2019-06-15] MEDS ORDERED: traMADol 50 MG TABLET PO STA (00:43)
[2019-06-15 01:44] VITALS: BP 196/98
== END 2019-06-15 01:51 | disposition home or self-care (01) ==
LOC: EDUNIT# → ED 21:44
DX: R11.2 Nausea with vomiting, unspecified (principal); R10.9 Unspecified abdominal pain; E11.9 Type 2 diabetes mellitus without complications; Z79.4 Long term (current) use of insulin; I10 Essential (primary) hypertension
CPT/HCPCS: 36415; 80053; 81003; 82009; 83690; 85025; 96361; 96374; 96375; 99284; 99285; A9270; J1170; 81001; 87086

== ENCOUNTER 2019-07-27 12:18 | Outpatient (CLI) | payer MEDICAID | END 2019-07-27 12:19 | disposition critical access hospital (66) | LOC: EMS 12:18 | PROVIDERS: ATTEND Surgery | DX: F41.9 Anxiety disorder, unspecified (principal) | CPT/HCPCS: A0425; A0429 ==

== ENCOUNTER 2019-07-27 12:38 | Emergency (ER) | payer MEDICAID ==
[2019-07-27 12:44] VITALS: BP 180/81
[2019-07-27] MEDS ORDERED: LORazepam 1 MG TABLET PO STA (12:57)
--- NOTE | 2019-07-27 13:00 | ED Physician Documentation ---
PD HPI MHE - Stated complaint Stated Complaint: ANXIETY - Chief complaint Chief Complaint: MHE - History obtained from History obtained from: Patient - History of Present Illness Primary symptom: Anxiety (About a month ago she started a new antidepressant and was decreasing her dose of her BuSpar on order of her prescriber. The new antidepressant was increased 4 days ago and that caused a significant increase in her anxiety with panic attacks. She denies suicidal or homicidal ideation.) Review of Systems Constitutional: denies: Fever, Chills Cardiac: denies: Chest pain / pressure, Palpitations Respiratory: denies: Dyspnea, Cough GI: denies: Abdominal Pain PD PAST MEDICAL HISTORY - Past Medical History Cardiovascular: Hypertension, High cholesterol, Other Respiratory: Asthma, COPD, Shortness of breath, Sleep apnea, CPAP use Neuro: None Endocrine/Autoimmune: Type 2 diabetes GI: GERD, Chronic diarrhea, Chronic constipation, Other : None HEENT: Chronic vision loss, Chronic sinusitis Psych: Depression, Anxiety, Panic attacks, Post traumatic stress disorder, Claustrophobia Musculoskeletal: Osteoarthritis, Fibromyalgia, Chronic back pain, Other Derm: Psoriasis, Rosacea - Past Surgical History Past Surgical History: Yes General: Colonoscopy, EGD, Other Ortho: Arthroscopic surgery, Spine surgery, 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, 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, 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, Other - Present Medications Home Medications: Ambulatory Orders Medication Instructions Recorded Confirmed Fenofibrate [Lofibra] 160 mg PO BID 02/24/13 06/15/19 Lansoprazole 30 mg PO DAILY 02/24/13 06/15/19 Mirtazapine [Remeron] 15 mg PO QPM 02/24/13 06/15/19 Montelukast [Singulair] 10 mg PO QPM 02/24/13 06/15/19 Prazosin HCl [Minipress] 12 mg PO DAILY PM 02/24/13 06/15/19 Naproxen [Naprosyn] 500 mg PO BID PRN #0 tablet 05/12/16 06/15/19 Calcium Carbonate/Vitamin D3 1 each PO DAILY 01/27/18 06/15/19 [Calcium 500-Vit D3 200 Tablet] Cholecalciferol [Vitamin D3] 5,000 unit PO BID 01/27/18 06/15/19 Empagliflozin [Jardiance] 10 mg PO DAILY 01/27/18 06/15/19 Fluticasone [Flonase] 2 sprays MLEISSA DAILY 01/27/18 06/15/19 Lactobacillus Acidophilus 1 each PO DAILY 01/27/18 06/15/19 [Acidophilus Lactobacilli] Levalbuterol [Xopenex] 1.25 mg INH Q8HR 01/27/18 06/15/19 Losartan [Cozaar] 50 mg PO BID 01/27/18 06/15/19 Omega3/Dha/Epa/Fish Oil/Vit D3 1 each PO DAILY 01/27/18 06/15/19 [Fish Oil-Vit D3 Softgel] Triamcinolone 0.1% Oint [Kenalog 1 applic TOP BID 01/27/18 01/27/18 0.1% Oint] glipiZIDE [Glucotrol] 10 mg PO DAILY 01/27/18 06/15/19 Clotrimazole 1 gm TP TID #1 cream..g. 02/24/18 06/15/19 Tramadol HCl 100 mg PO TID 02/24/18 06/15/19 Valbenazine Tosylate [Ingrezza] 80 mg PO DAILY 02/24/18 06/15/19 Dicyclomine [Bentyl] 10 mg PO QID 07/17/18 06/15/19 Insulin Aspart Prot/Insuln Asp 24 units SUBQ BID 07/17/18 06/15/19 [Novolog Mix 70-30 Flexpen Syrn] Tizanidine HCl [Zanaflex] 4 mg PO TID 07/17/18 06/15/19 predniSONE [Deltasone] 10 mg PO [id number] #42 tab 02/22/19 06/15/19 Beclomethasone 40 Mcg [Qvar 40] 2 puffs IH BID 06/15/19 06/15/19 Buspirone HCl 30 mg PO BID 06/15/19 06/15/19 Clobetasol 0.05% Oint [Temovate 1 applic TOP BID 06/15/19 06/15/19 0.05% Oint] Ergocalciferol [Vitamin D2] 1 cap PO 06/15/19 Fexofenadine HCl [Shellie Allergy] 1 tab PO DAILY 06/15/19 06/15/19 Fluconazole 150 mg PO DAILY PRN 06/15/19 06/15/19 Gabapentin 1 cap PO TID 06/15/19 06/15/19 HYDROmorphone [Dilaudid] 2 mg PO Q4HR PRN 06/15/19 06/15/19 Insulin Glargine [Lantus Solostar] 40 units SUBQ BID 06/15/19 06/15/19 Ketorolac Tromethamine 1 - 2 ml IV DAILY 06/15/19 06/15/19 Metformin HCl [Glucophage Xr] 500 mg PO BID 06/15/19 06/15/19 PARoxetine HCl [Paroxetine HCl] 20 mg PO DAILY 06/15/19 06/15/19 Prochlorperazine [Compazine] 1 - 2 tab PO Q6HR PRN 06/15/19 06/15/19 Ramelteon 8 mg PO QPM 06/15/19 06/15/19 Trazodone HCl 50 mg PO QPM 06/15/19 06/15/19 Lorazepam [Ativan] 1 mg PO TID PRN #15 tablet 07/27/19 busPIRone [Buspar] 2 tab PO BID #60 tablet 07/27/19 - Allergies Allergies/Adverse Reactions: Allergies Allergy/AdvReac Type Severity Reaction Status Date / Time acetaminophen [From Tylenol] Allergy Severe Anaphylaxis Verified 06/15/19 01:39 adhesive tape Allergy Severe Swelling/Er Verified 06/15/19 01:39 ythema corn [[place]] Allergy Severe Cramps Verified 06/15/19 01:39 ibuprofen [From Motrin] Allergy Severe Anaphylaxis Verified 06/15/19 01:39 latex Allergy Severe Edema/Eryth Verified 06/15/19 01:39 cristopher tetanus toxoid, adsorbed Allergy Severe Local Verified 06/15/19 01:39 swelling/Pain theophylline Allergy Severe Anaphylaxis Verified 06/15/19 01:39 wheat Allergy Intermediate Cramps Verified 06/15/19 01:39 aripiprazole [From Abilify] Allergy Unknown Verified 06/15/19 01:39 benztropine Allergy Edema Verified 06/15/19 01:39 desvenlafaxine Allergy Unknown Verified 06/15/19 01:39 duloxetine Allergy Unknown Verified 06/15/19 01:39 gabapentin Allergy GI upset Verified 06/15/19 01:39 gluten Allergy GI upset Verified 06/15/19 01:39 loratadine Allergy Unknown Verified 06/15/19 01:39 spironolactone Allergy Unknown Verified 06/15/19 01:39 zolpidem Allergy Unknown Verified 06/15/19 01:39 bupropion AdvReac Depression Verified 06/15/19 01:39 lisinopril AdvReac Cough Verified 06/15/19 01:39 oats Allergy Intermediate Cramps Uncoded 06/15/19 01:39 rice Allergy Intermediate Cramps Uncoded 06/15/19 01:39 milk AdvReac Intermediate Cramps Uncoded 06/15/19 01:39 - Social History Does the pt smoke?: No Smoking Status: Never smoker Does the pt drink ETOH?: No Does the pt have substance abuse?: No - Immunizations Immunizations are current?: Yes - POLST Patient has POLST: Yes PD ED PE NORMAL - Vitals Vital signs reviewed: Yes - General General: Alert and oriented X 3, No acute distress - HEENT HEENT: PERRL, EOMI, Dentition benign - Extremities Extremities: No edema, No calf tenderness / cord - Neuro Neuro: Alert and oriented X 3, No motor deficit, No sensory deficit, Normal speech - Psych Psych: Normal mood, Normal affect Results - Vitals Vitals: Vital Signs - 24 hr 07/27/19 12:39 Temperature 36.8 C Heart Rate 80 Respiratory 18 Rate Blood Pressure 180/81 H O2 Saturation 97 Oxygen O2 Source Room air PD MEDICAL DECISION MAKING - ED course ED course: 58-year-old woman with uncontrolled anxiety undergoing medication changes. Her meds were adjusted back to the way they were a few days ago which was better for her and she is given a as needed prescription for lorazepam in the meantime. Departure - Departure Disposition: 01 Home, Self Care Clinical Impression: Anxiety Condition: Good Record reviewed to determine appropriate education?: Yes Instructions: ED Panic Attack Prescriptions: busPIRone [Buspar] 2 tab PO BID #60 tablet Lorazepam [Ativan] 1 mg PO TID PRN #15 tablet PRN Reason: Anxiety Comments: You can go [id number] dosing of the antidepressant pending follow-up with your psychiatrist, also going back up on the dose of the BuSpar and lorazepam as needed for anxiety when it is particularly bad. Return for new or worsening symptoms.
== END 2019-07-27 13:09 | disposition home or self-care (01) ==
LOC: EDUNIT# → ED 12:38
DX: F41.9 Anxiety disorder, unspecified (principal); F32.9 Major depressive disorder, single episode, unspecified; I10 Essential (primary) hypertension; E11.9 Type 2 diabetes mellitus without complications; Z79.4 Long term (current) use of insulin
CPT/HCPCS: 99283; J8499

== ENCOUNTER 2019-08-24 14:00 | Outpatient (CLI) | payer MEDICAID ==
--- NOTE | 2019-08-24 15:29 | SLEEP CARE CONSULTATION ---
Information from patient questionnaire entered by Jacquelyn Garcia. I have reviewed and concur with the information entered by Jacquelyn Garcia. This document represents the service I personally performed and the decisions made by me, Boris Levine MD, [facility]. History of Present Illness Previous diagnosis: Mild, Obstructive Sleep Apnea-Hypopnea Syndrome AHI: 9.6 Reason for follow up: first compliance Equipment type: CPAP Equipment obtained from: [employer] Prior sleep studies: Yes HPI additional information: HPI: Ms. Tabor returned today for follow up of nasal CPAP therapy. She was diagnosed to have mild obstructive sleep apnea-hypopnea syndrome. The patient wears with a Respironics Wisp nasal mask. She reports using the device nightly and all through the night. The compliance data show usage in 27 out of the past 30 nights, averaging 11.2 hours a night. The > 4 hour compliance rate for the past 30 days is 83%. She complained of some dryness and nasal congestion. She thinks that the pressure of 9 cmH2O is comfortable (6 9 cmH2O was too low). On the CPAP therapy she notices improvement in her sleep quality, and that she wakes up feeling fresher in the morning and more awake/alert during the day. The [place] Sleepiness Scale score 10. The average residual AHI is 1.0; and average time in large leak per day is 6 minutes. CPAP Compliance Data - Data Reviewed with Patient Average duration of nightly device use: 11h 11m Compliance rate %: 83.3 Current pressure setting (cmH2O): 9 Humidity settin Heated hose settin Average residual AHI: 1.0 Average large leak: 6m 7s Subjective Patient concerns: reports: mask discomfort, air blowing in eyes, nasal congestion, dry mouth, nose, throat Current pressure setting perceived as: comfortable Initial [place] Sleepiness Scale score: 13 Allergies and Home Medications Drug allergies reviewed: Yes (Tylenol, motrin, tetanus toxoid, theophylline) Home medication list reviewed: Yes Review of Systems Review of systems same as previous: Yes Physical Exam Height: 5 ft 4 in Weight: 274 lb Body Mass Index: 47.0 BMI Classification: Obesity Class 3 Impression and Plan IMPRESSION: 1. Obstructive Sleep Apnea-Hypopnea Syndrome, mild, with the patient doing well on nasal CPAP therapy. She has excellent compliance and significant clinical improvement. The current pressure appears effective and comfortable. Her mask fits well. Overall, she is very satisfied with treatment and plans to continue with it long-term. No adjustment is necessary today. PLAN: 1. Continue with CPAP set at 9 cmH2O. 2. Try to lose weight 3. Increase the heated humidifier for dryness and nasal congestion. 4. Return in one year for follow up or earlier if there is any problem with the treatment. I spent 100% of this visit face to face with the patient with greater than 50% of this was spent time counseling the patient and coordination of care.
== END 2019-08-24 14:01 | disposition home or self-care (01) ==
LOC: SC 14:00
PROVIDERS: ATTEND Internal Medicine Pulmonary Disease
DX: G47.33 Obstructive sleep apnea (adult) (pediatric) (principal); E66.9 Obesity, unspecified; Z68.42 Body mass index [BMI] 45.0-49.9, adult
CPT/HCPCS: 99212; 99213

== ENCOUNTER 2019-11-23 22:54 | Outpatient (CLI) | payer MEDICAID | END 2019-11-23 22:55 | disposition critical access hospital (66) | LOC: EMS 22:54 | PROVIDERS: ATTEND Surgery | DX: S09.93XA Unspecified injury of face, initial encounter (principal); M54.2 Cervicalgia; W18.39XA Other fall on same level, initial encounter; Y92.008 Other place in unspecified non-institutional (private) residence as the place of occurrence of the external cause | CPT/HCPCS: A0425; A0429; A0999 ==

== ENCOUNTER 2019-11-23 23:08 | Emergency (ER) | payer MEDICAID ==
--- NOTE | 2019-11-23 23:19 | ED Physician Documentation ---
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 She says she got to the bathroom, but that when she turned around to sit on the toilet, she lost her balance and fell. She denies LOC. She c/o headache, neck pain, left shoulder pain, bilateral knee pain. She says it is not unusual for her to lose her balance as she did tonight. Review of Systems Eyes: denies: Loss of vision, Decreased vision Cardiac: reports: Reviewed and negative Respiratory: reports: Reviewed and negative GI: reports: Reviewed and negative : denies: Dysuria, Frequency, Incontinent Musculoskeletal: reports: Neck pain, Joint pain (bilateral knees (L>R), left shoulder, right hip). denies: Back pain Neurologic: reports: Headache, Head injury. denies: Generalized weakness, Focal weakness, Numbness, Confused, Altered mental status, LOC PD PAST MEDICAL HISTORY - Past Medical History Cardiovascular: Hypertension, High cholesterol, Other Respiratory: Asthma, COPD, Shortness of breath, Sleep apnea, CPAP use Neuro: None Endocrine/Autoimmune: Type 2 diabetes GI: GERD, Chronic diarrhea, Chronic constipation, Other : None HEENT: Chronic vision loss, Chronic sinusitis Psych: Depression, Anxiety, Panic attacks, Post traumatic stress disorder, Claustrophobia Musculoskeletal: Osteoarthritis, Fibromyalgia, Chronic back pain, Other Derm: Psoriasis, Rosacea - Past Surgical History Past Surgical History: Yes General: Colonoscopy, EGD, Other Ortho: Arthroscopic surgery, Spine surgery, 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, 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, 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, Other - Present Medications Home Medications: Ambulatory Orders Medication Instructions Recorded Confirmed Fenofibrate [Lofibra] 160 mg PO BID 02/24/13 06/15/19 Lansoprazole 30 mg PO DAILY 02/24/13 06/15/19 Mirtazapine [Remeron] 15 mg PO QPM 02/24/13 06/15/19 Montelukast [Singulair] 10 mg PO QPM 02/24/13 06/15/19 Prazosin HCl [Minipress] 12 mg PO DAILY PM 02/24/13 06/15/19 Naproxen [Naprosyn] 500 mg PO BID PRN #0 tablet 05/12/16 06/15/19 Calcium Carbonate/Vitamin D3 1 each PO DAILY 01/27/18 06/15/19 [Calcium 500-Vit D3 200 Tablet] Cholecalciferol [Vitamin D3] 5,000 unit PO BID 01/27/18 06/15/19 Empagliflozin [Jardiance] 10 mg PO DAILY 01/27/18 06/15/19 Fluticasone [Flonase] 2 sprays MELISSA DAILY 01/27/18 06/15/19 Lactobacillus Acidophilus 1 each PO DAILY 01/27/18 06/15/19 [Acidophilus Lactobacilli] Levalbuterol [Xopenex] 1.25 mg INH Q8HR 01/27/18 06/15/19 Losartan [Cozaar] 50 mg PO BID 01/27/18 06/15/19 Omega3/Dha/Epa/Fish Oil/Vit D3 1 each PO DAILY 01/27/18 06/15/19 [Fish Oil-Vit D3 Softgel] Triamcinolone 0.1% Oint [Kenalog 1 applic TOP BID 01/27/18 01/27/18 0.1% Oint] glipiZIDE [Glucotrol] 10 mg PO DAILY 01/27/18 06/15/19 Clotrimazole 1 gm TP TID #1 cream..g. 02/24/18 06/15/19 Tramadol HCl 100 mg PO TID 02/24/18 06/15/19 Valbenazine Tosylate [Ingrezza] 80 mg PO DAILY 02/24/18 06/15/19 Dicyclomine [Bentyl] 10 mg PO QID 07/17/18 06/15/19 Insulin Aspart Prot/Insuln Asp 24 units SUBQ BID 07/17/18 06/15/19 [Novolog Mix 70-30 Flexpen Syrn] Tizanidine HCl [Zanaflex] 4 mg PO TID 07/17/18 06/15/19 predniSONE [Deltasone] 10 mg PO [id number] #42 tab 02/22/19 06/15/19 Beclomethasone 40 Mcg [Qvar 40] 2 puffs IH BID 06/15/19 06/15/19 Buspirone HCl 30 mg PO BID 06/15/19 06/15/19 Clobetasol 0.05% Oint [Temovate 1 applic TOP BID 06/15/19 06/15/19 0.05% Oint] Ergocalciferol [Vitamin D2] 1 cap PO 06/15/19 Fexofenadine HCl [Shellie Allergy] 1 tab PO DAILY 06/15/19 06/15/19 Fluconazole 150 mg PO DAILY PRN 06/15/19 06/15/19 Gabapentin 1 cap PO TID 06/15/19 06/15/19 HYDROmorphone [Dilaudid] 2 mg PO Q4HR PRN 06/15/19 06/15/19 Insulin Glargine [Lantus Solostar] 40 units SUBQ BID 06/15/19 06/15/19 Ketorolac Tromethamine 1 - 2 ml IV DAILY 06/15/19 06/15/19 Metformin HCl [Glucophage Xr] 500 mg PO BID 06/15/19 06/15/19 PARoxetine HCL [Paroxetine HCl] 20 mg PO DAILY 06/15/19 06/15/19 Prochlorperazine [Compazine] 1 - 2 tab PO Q6HR PRN 06/15/19 06/15/19 Ramelteon 8 mg PO QPM 06/15/19 06/15/19 Trazodone HCl 50 mg PO QPM 06/15/19 06/15/19 Lorazepam [Ativan] 1 mg PO TID PRN #15 tablet 07/27/19 busPIRone [Buspar] 2 tab PO BID #60 tablet 07/27/19 - Allergies Allergies/Adverse Reactions: Allergies Allergy/AdvReac Type Severity Reaction Status Date / Time acetaminophen [From Tylenol] Allergy Severe Anaphylaxis Verified 06/15/19 01:39 adhesive tape Allergy Severe Swelling/Er Verified 06/15/19 01:39 ythema corn [[place]] Allergy Severe Cramps Verified 06/15/19 01:39 ibuprofen [From Motrin] Allergy Severe Anaphylaxis Verified 06/15/19 01:39 latex Allergy Severe Edema/Eryth Verified 06/15/19 01:39 cristopher tetanus toxoid, adsorbed Allergy Severe Local Verified 06/15/19 01:39 swelling/Pain theophylline Allergy Severe Anaphylaxis Verified 06/15/19 01:39 wheat Allergy Intermediate Cramps Verified 06/15/19 01:39 aripiprazole [From Abilify] Allergy Unknown Verified 06/15/19 01:39 benztropine Allergy Edema Verified 06/15/19 01:39 desvenlafaxine Allergy Unknown Verified 06/15/19 01:39 duloxetine Allergy Unknown Verified 06/15/19 01:39 gabapentin Allergy GI upset Verified 06/15/19 01:39 gluten Allergy GI upset Verified 06/15/19 01:39 loratadine Allergy Unknown Verified 06/15/19 01:39 spironolactone Allergy Unknown Verified 06/15/19 01:39 zolpidem Allergy Unknown Verified 06/15/19 01:39 bupropion AdvReac Depression Verified 06/15/19 01:39 lisinopril AdvReac Cough Verified 06/15/19 01:39 oats Allergy Intermediate Cramps Uncoded 06/15/19 01:39 rice Allergy Intermediate Cramps Uncoded 06/15/19 01:39 milk AdvReac Intermediate Cramps Uncoded 06/15/19 01:39 - Social History Does the pt smoke?: No Smoking Status: Never smoker Does the pt drink ETOH?: No Does the pt have substance abuse?: No - Immunizations Immunizations are current?: Yes - POLST Patient has POLST: Yes PD ED PE NORMAL - Vitals Vital signs reviewed: Yes - General General: Alert and oriented X 3, No acute distress, Well developed/nourished, Other (c-collar in place and patient is on backboard (log-rolled with assistance of ED staff; board removed, nontender to palpation of T-L-S spine)) - HEENT HEENT: PERRL, EOMI, Moist mucous membranes, Other (abrasion to nasal bridge, scant dried blood left nare without septal hematoma or active bleeding) - Neck Neck: Other (mild TTP bilateral paracervical mid-level (performed with c-collar in place through posterior opening)) - Cardiac Cardiac: RRR, No murmur - Respiratory Respiratory: No respiratory distress, Clear bilaterally - Abdomen Abdomen: Soft, Non tender - Derm Derm: Normal color, Warm and dry - Extremities Extremities: Other (TTP left knee, lateral aspect and over patella. no significant TTP right knee. mild TTP left shoulder, anterolateral aspect. 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, No motor deficit, No sensory deficit, Normal speech Eye Opening: Spontaneous Motor: Obeys Commands Verbal: Oriented GCS Score: 15 Results - Vitals Vitals: Vital Signs - 24 hr 11/23/19 11/24/19 11/24/19 23:10 00:51 02:00 Temperature 37.1 C Heart Rate 70 72 72 Respiratory 20 14 14 Rate Blood Pressure 163/80 H 163/79 H 158/76 H O2 Saturation 96 97 96 Oxygen O2 Source Room air - Rads (name of study) CTH Radiology: Prelim report reviewed, See rad report CT cervical spine Radiology: Prelim report reviewed, See rad report right hip xrays w/ pelvis Radiology: Prelim report reviewed, See rad report left knee xrays Radiology: Prelim report reviewed, See rad report left shoulder xrays Radiology: Prelim report reviewed, See rad report PD MEDICAL DECISION MAKING - ED course Complexity details: reviewed results, re-evaluated patient, considered differential, d/w patient ED course: patient describes loss of balance as cause of her fall and states this balance issue is not unusual for her. Radiology studies do not reveal any acute/emergent pathology, and patient remains AAOx3 on reevaluation, no obvious distress although she requests pain medication prior to discharge (appropriate, given her injuries). We discussed options and agreed on oxycodone 5mg with zofran 4mg TL. Departure - Departure Disposition: 01 Home, Self Care Clinical Impression: Fall, Multiple contusions Condition: Good Instructions: ED Contusion Soft Tissue, ED Fall Dizziness Weakn Balance Follow-Up: MATEUSZ BROWN DO [Primary Care Provider] -
--- NOTE | 2019-11-24 00:55 | CT Report ---
Reason: fall, head injury Procedure Date: 11/24/2019 Accession Number: [id number] / [id number] Procedure: CT - HEAD WO CPT Code: Final Report FULL RESULT: EXAM: CT HEAD EXAM DATE: 11/24/2019 12:20 AM. CLINICAL HISTORY: Fall, head injury. COMPARISON: None. TECHNIQUE: Multiaxial CT images were obtained from the foramen magnum to the vertex. Reformats: Sagittal and coronal. IV contrast: None. In accordance with CT protocol optimization, one or more of the following dose reduction techniques were utilized for this exam: automated exposure control, adjustment of mA and/or KV based on patient size, or use of iterative reconstructive technique. FINDINGS: Parenchyma: No intraparenchymal hemorrhage. No evidence of mass, midline shift, or CT findings of infarction. Springer-white differentiation is distinct. Extraaxial Spaces: Normal for age. No subdural or epidural collections identified. Ventricles: Normal in size and position. Sinuses and Orbits: Imaged paranasal sinuses, orbits, and mastoids show no significant abnormality. Bones: No evidence of fracture or calvarial defect. Other: None. IMPRESSION: Normal head CT. RADIA
--- NOTE | 2019-11-24 00:58 | CT Report ---
Reason: fall, neck pain Procedure Date: 11/24/2019 Accession Number: [id number] / [id number] Procedure: CT - CERVICAL SPINE WO CPT Code: Final Report FULL RESULT: EXAM: CT CERVICAL SPINE WITHOUT CONTRAST DATE: 11/24/2019 12:20 AM. HISTORY: Fall, neck pain. COMPARISONS: None. TECHNIQUE: Thin-section axial images were acquired of the cervical spine without contrast. Post-processing: Coronal and sagittal reformats. Other: None. In accordance with CT protocol optimization, one or more of the following dose reduction techniques were utilized for this exam: automated exposure control, adjustment of mA and/or KV based on patient size, or use of iterative reconstructive technique. FINDINGS: Alignment: No scoliosis or spondylolisthesis. Bones: No acute fracture seen. Posterior metallic fusion and interbody fusion from C4-C7 with multilevel laminectomy. Interspace Levels/Facets: Posterior metallic fusion and interbody fusion from C4-C7. The other disk spaces appear preserved. Other: No prevertebral soft tissue swelling. The visualized lung apices appear clear. IMPRESSION: 1. No acute cervical spine abnormality seen. 2. Posterior metallic fusion and interbody fusion from C4-C7 with multilevel laminectomy. RADIA
--- NOTE | 2019-11-24 01:39 | XRAY Report ---
Reason: fall, left shoulder pain Procedure Date: 11/24/2019 Accession Number: [id number] / [id number] Procedure: XR - Shoulder 3 View LT CPT Code: Final Report FULL RESULT: EXAM: LEFT SHOULDER RADIOGRAPHY EXAM DATE: 11/24/2019 12:53 AM. CLINICAL HISTORY: Fall, left shoulder pain. COMPARISON: None. TECHNIQUE: 3 views. FINDINGS: Bones: Normal. No fracture or bone lesion. Partial visualization of fixation hardware at the cervical spine. Joints: The glenohumeral and acromioclavicular joints are unremarkable after accounting for acromioclavicular joint degeneration. Soft tissues: The visualized hemithorax is unremarkable. No soft tissue swelling. IMPRESSION: No fracture or dislocation. RADIA
--- NOTE | 2019-11-24 01:39 | XRAY Report ---
Reason: fall, left knee pain Procedure Date: 11/24/2019 Accession Number: [id number] / [id number] Procedure: XR - Knee 4 View LT CPT Code: Final Report FULL RESULT: EXAM: LEFT KNEE RADIOGRAPHY EXAM DATE: 11/24/2019 12:54 AM. CLINICAL HISTORY: Fall, left knee pain. COMPARISON: None. TECHNIQUE: 4 views. FINDINGS: Bones: Normal. No fractures or bone lesions. Joints: Normal. No effusion. No subluxations. Soft Tissues: Normal. No soft tissue swelling. IMPRESSION: No fracture or dislocation. RADIA
--- NOTE | 2019-11-24 01:39 | XRAY Report ---
Reason: fall, right hip pain Procedure Date: 11/24/2019 Accession Number: [id number] / [id number] Procedure: XR - Hip w/Pelvis 2-3V RT CPT Code: Final Report FULL RESULT: EXAM: RIGHT HIP RADIOGRAPHY EXAM DATE: 11/24/2019 12:51 AM. CLINICAL HISTORY: Fall, right hip pain. COMPARISON: None. TECHNIQUE: 2 views. FINDINGS: Bones: Normal. No fractures or bone lesion. Joints: Normal. No dislocation. The hip joint space is preserved. Soft Tissues: Normal. No soft tissue swelling. Other: Status post L4-L5 posterior spine fixation. IMPRESSION: No fracture or dislocation at the right hip. RADIA
[2019-11-24 02:01] VITALS: BP 158/76
[2019-11-24] MEDS ORDERED: ONDANSETRON ODT 4 MG TABLET TL STA (02:11)
[2019-11-24] MEDS ORDERED: oxyCODONE 5 MG TABLET PO STA (02:11)
== END 2019-11-24 03:24 | disposition home or self-care (01) ==
LOC: EDUNIT# → ED 23:08
DX: S00.31XA Abrasion of nose, initial encounter (principal); T14.8XXA Other injury of unspecified body region, initial encounter; W01.0XXA Fall on same level from slipping, tripping and stumbling without subsequent striking against object, initial encounter; Y93.89 Activity, other specified; Y92.002 Bathroom of unspecified non-institutional (private) residence as the place of occurrence of the external cause; R51 Headache; M54.2 Cervicalgia; M25.512 Pain in left shoulder; M25.551 Pain in right hip; M25.561 Pain in right knee; M25.562 Pain in left knee; I10 Essential (primary) hypertension; E11.9 Type 2 diabetes mellitus without complications; Z79.4 Long term (current) use of insulin
CPT/HCPCS: 70450; 72125; 73030; 73502; 73564; 99284; A9270; Q0162

== ENCOUNTER 2020-12-13 21:31 | Outpatient (CLI) | payer MEDICAID | END 2020-12-13 21:32 | disposition critical access hospital (66) | LOC: EMS 21:31 | DX: R55 Syncope and collapse (principal); S09.90XA Unspecified injury of head, initial encounter; W18.39XA Other fall on same level, initial encounter; Y92.009 Unspecified place in unspecified non-institutional (private) residence as the place of occurrence of the external cause; R11.0 Nausea; R42 Dizziness and giddiness | CPT/HCPCS: A0425; A0427; A0999 ==

== ENCOUNTER 2020-12-13 21:45 | Emergency (ER) | payer MEDICAID ==
[2020-12-13] MEDS ORDERED: SODIUM CHLORIDE 0.9% 1,000 ML IV STA (21:51)
[2020-12-13] MEDS ORDERED: MORPHINE 2 MG/ML CARPUJECT IVP STA (21:51)
[2020-12-13] MEDS ORDERED: ONDANSETRON 4 MG/2 ML VIAL IVP STA ×2 (21:52→23:41)
--- NOTE | 2020-12-13 21:52 | ED Physician Documentation ---
PD HPI SYNCOPE - Stated complaint Stated Complaint: GLF - History obtained from History obtained from: Patient, Family, EMS - History of Present Illness Witnessed: Witnessed Timing - onset: How many minutes ago (30) Duration: Seconds Preceding symptoms: Light headed, Generalized weakness. No: Headache, Chest pain, Nausea / vomiting Associated symptoms: Headache. No: Chest pain, Dyspnea, Nausea / vomiting Contributing factors: Just stood up. No: Recent med change, Decreased PO intake Injury occurred: Fell, Head injury Similar symptoms before: No diagnosis (she has history of postural lightheaded and states has fainted with standing up several times. Workups without obvious cause. She states she fell and struck head on concrete this time. Has some headache.) Review of Systems Constitutional: denies: Fever, Chills Nose: denies: Rhinorrhea / runny nose, Congestion Throat: denies: Sore throat Cardiac: denies: Chest pain / pressure Respiratory: denies: Cough GI: denies: Abdominal Pain, Nausea, Vomiting, Diarrhea, Bloody / black stool Skin: denies: Rash, Lesions Neurologic: reports: Syncope, Headache. denies: Focal weakness, Numbness, Seizure, Confused, Altered mental status PD PAST MEDICAL HISTORY - Past Medical History Cardiovascular: Hypertension, High cholesterol, Other Respiratory: Asthma, COPD, Shortness of breath, Sleep apnea, CPAP use Neuro: None Endocrine/Autoimmune: Type 2 diabetes GI: GERD, Chronic diarrhea, Chronic constipation, Other : None HEENT: Chronic vision loss, Chronic sinusitis Psych: Depression, Anxiety, Panic attacks, Post traumatic stress disorder, Claustrophobia Musculoskeletal: Osteoarthritis, Fibromyalgia, Chronic back pain, Other Derm: Psoriasis, Rosacea - Past Surgical History Past Surgical History: Yes General: Colonoscopy, EGD, Other Ortho: Arthroscopic surgery, Spine surgery, 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, 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, 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, Other - Present Medications Home Medications: Ambulatory Orders Medication Instructions Recorded Confirmed Fenofibrate [Lofibra] 160 mg PO BID 02/24/13 06/15/19 Lansoprazole 30 mg PO DAILY 02/24/13 06/15/19 Mirtazapine [Remeron] 15 mg PO QPM 02/24/13 06/15/19 Montelukast [Singulair] 10 mg PO QPM 02/24/13 06/15/19 Prazosin HCl [Minipress] 12 mg PO DAILY PM 02/24/13 06/15/19 Naproxen [Naprosyn] 500 mg PO BID PRN #0 tablet 05/12/16 06/15/19 Calcium Carbonate/Vitamin D3 1 each PO DAILY 01/27/18 06/15/19 [Calcium 500-Vit D3 200 Tablet] Cholecalciferol [Vitamin D3] 5,000 unit PO BID 01/27/18 06/15/19 Empagliflozin [Jardiance] 10 mg PO DAILY 01/27/18 06/15/19 Fluticasone [Flonase] 2 sprays MELISSA DAILY 01/27/18 06/15/19 Lactobacillus Acidophilus 1 each PO DAILY 01/27/18 06/15/19 [Acidophilus Lactobacilli] Levalbuterol [Xopenex] 1.25 mg INH Q8HR 01/27/18 06/15/19 Losartan [Cozaar] 50 mg PO BID 01/27/18 06/15/19 Omega3/Dha/Epa/Fish Oil/Vit D3 1 each PO DAILY 01/27/18 06/15/19 [Fish Oil-Vit D3 Softgel] Triamcinolone 0.1% Oint [Kenalog 1 applic TOP BID 01/27/18 01/27/18 0.1% Oint] glipiZIDE [Glucotrol] 10 mg PO DAILY 01/27/18 06/15/19 Clotrimazole 1 gm TP TID #1 cream..g. 02/24/18 06/15/19 Tramadol HCl 100 mg PO TID 02/24/18 06/15/19 Valbenazine Tosylate [Ingrezza] 80 mg PO DAILY 02/24/18 06/15/19 Dicyclomine [Bentyl] 10 mg PO QID 07/17/18 06/15/19 Insulin Aspart Prot/Insuln Asp 24 units SUBQ BID 07/17/18 06/15/19 [Novolog Mix 70-30 Flexpen Syrn] Tizanidine HCl [Zanaflex] 4 mg PO TID 07/17/18 06/15/19 predniSONE [Deltasone] 10 mg PO [id number] #42 tab 02/22/19 06/15/19 Beclomethasone 40 Mcg [Qvar 40] 2 puffs IH BID 06/15/19 06/15/19 Buspirone HCl 30 mg PO BID 06/15/19 06/15/19 Clobetasol 0.05% Oint [Temovate 1 applic TOP BID 06/15/19 06/15/19 0.05% Oint] Ergocalciferol [Vitamin D2] 1 cap PO 06/15/19 Fexofenadine HCl [Shellie Allergy] 1 tab PO DAILY 06/15/19 06/15/19 Fluconazole 150 mg PO DAILY PRN 06/15/19 06/15/19 Gabapentin 1 cap PO TID 06/15/19 06/15/19 HYDROmorphone [Dilaudid] 2 mg PO Q4HR PRN 06/15/19 06/15/19 Insulin Glargine [Lantus Solostar] 40 units SUBQ BID 06/15/19 06/15/19 Ketorolac Tromethamine 1 - 2 ml IV DAILY 06/15/19 06/15/19 Metformin HCl [Glucophage Xr] 500 mg PO BID 06/15/19 06/15/19 PARoxetine HCL [Paroxetine HCl] 20 mg PO DAILY 06/15/19 06/15/19 Prochlorperazine [Compazine] 1 - 2 tab PO Q6HR PRN 06/15/19 06/15/19 Ramelteon 8 mg PO QPM 06/15/19 06/15/19 Trazodone HCl 50 mg PO QPM 06/15/19 06/15/19 Lorazepam [Ativan] 1 mg PO TID PRN #15 tablet 07/27/19 busPIRone [Buspar] 2 tab PO BID #60 tablet 07/27/19 Ondansetron Odt [Zofran] 4 mg TL Q6H PRN #10 tablet 12/13/20 traMADol [Ultram] 50 mg PO Q6H PRN 3 Days #12 tablet 12/13/20 - Allergies Allergies/Adverse Reactions: Allergies Allergy/AdvReac Type Severity Reaction Status Date / Time acetaminophen [From Tylenol] Allergy Severe Anaphylaxis Verified 12/13/20 21:57 adhesive tape Allergy Severe Swelling/Er Verified 12/13/20 21:57 ythema corn [[place]] Allergy Severe Cramps Verified 12/13/20 21:57 ibuprofen [From Motrin] Allergy Severe Anaphylaxis Verified 12/13/20 21:57 latex Allergy Severe Edema/Eryth Verified 12/13/20 21:57 cristopher tetanus toxoid, adsorbed Allergy Severe Local Verified 12/13/20 21:57 swelling/Pain theophylline Allergy Severe Anaphylaxis Verified 12/13/20 21:57 wheat Allergy Intermediate Cramps Verified 12/13/20 21:57 aripiprazole [From Abilify] Allergy Unknown Verified 12/13/20 21:57 benztropine Allergy Edema Verified 12/13/20 21:57 desvenlafaxine Allergy Unknown Verified 12/13/20 21:57 duloxetine Allergy Unknown Verified 12/13/20 21:57 gabapentin Allergy GI upset Verified 12/13/20 21:57 gluten Allergy GI upset Verified 12/13/20 21:57 loratadine Allergy Unknown Verified 12/13/20 21:57 spironolactone Allergy Unknown Verified 12/13/20 21:57 zolpidem Allergy Unknown Verified 12/13/20 21:57 bupropion AdvReac Depression Verified 12/13/20 21:57 lisinopril AdvReac Cough Verified 12/13/20 21:57 oats Allergy Intermediate Cramps Uncoded 06/15/19 01:39 rice Allergy Intermediate Cramps Uncoded 06/15/19 01:39 milk AdvReac Intermediate Cramps Uncoded 06/15/19 01:39 - Social History Does the pt smoke?: No Smoking Status: Never smoker Does the pt drink ETOH?: No Does the pt have substance abuse?: No - Immunizations Immunizations are current?: Yes - POLST Patient has POLST: Yes PD ED PE NORMAL - Vitals Vital signs reviewed: Yes - General General: Alert and oriented X 3, No acute distress, Well developed/nourished, Other (with cervical collar on arrival. IV in place. ) - HEENT HEENT: PERRL, EOMI, Pharynx benign, Other (back of head is tender. Mid cervical area is slightly tender without deformity.) - Neck Neck: Supple, no meningeal sign, No adenopathy - Cardiac Cardiac: RRR, No murmur - Respiratory Respiratory: Clear bilaterally - Abdomen Abdomen: Soft, Non tender - Derm Derm: Normal color, Warm and dry - Extremities Extremities: No tenderness to palpate, Normal ROM s pain - Neuro Neuro: Alert and oriented X 3, No motor deficit, Normal speech Results - Vitals Vitals: Vital Signs - 24 hr 12/13/20 12/13/20 12/13/20 21:52 22:23 22:38 Temperature 97.3 C H Heart Rate 66 66 Respiratory 17 16 15 Rate Blood Pressure 114/101 H 144/78 H O2 Saturation 97 97 12/13/20 12/14/20 12/14/20 23:15 00:10 00:19 Temperature Heart Rate 69 66 66 Respiratory 16 15 16 Rate Blood Pressure 151/92 H 141/79 H O2 Saturation 97 95 97 12/14/20 00:58 Temperature Heart Rate Respiratory 15 Rate Blood Pressure O2 Saturation Oxygen O2 Source Room air - Labs Labs: Laboratory Tests 12/13/20 12/13/20 22:00 22:00 WBC 6.5 RBC 4.69 Hgb 12.5 Hct 40.9 MCV 87.2 MCH 26.7 L MCHC 30.6 L RDW 13.2 Plt Count 280 MPV 9.7 Neut # (Auto) 4.0 Lymph # (Auto) 1.6 [place] # (Auto) 0.6 Eos # (Auto) 0.2 Baso # (Auto) 0.1 Absolute Nucleated RBC 0.00 Nucleated RBC % 0.0 Sodium 137 Potassium 3.8 Chloride 104 Carbon Dioxide 23 Anion Gap 10.0 BUN 23 H Creatinine 1.2 H Estimated GFR (MDRD) 46 L Glucose 104 H Calcium 9.0 Magnesium 2.0 Total Bilirubin 0.4 AST 30 ALT 27 Alkaline Phosphatase 63 Total Protein 6.8 Albumin 4.0 Globulin 2.8 Albumin/Globulin Ratio 1.4 Lipase 38 - Rads (name of study) head CT Radiology: Prelim report reviewed (no ICH nor acute injury), See rad report cervical CT Radiology: Prelim report reviewed, See rad report PD MEDICAL DECISION MAKING - ED course Complexity details: reviewed results (head/neck CT normal. Labs okay. ), considered differential (history of postural syncope without dx. Labs and CT good. ), d/w patient Departure - Departure Disposition: 01 Home, Self Care Clinical Impression: Postural syncope Head contusion Qualifiers: Encounter type: initial encounter Contusion of head detail: scalp Qualified Code(s): S00.03XA - Contusion of scalp, initial encounter Mild concussion Qualifiers: Encounter type: initial encounter Loss of consciousness presence/duration: without LOC Qualified Code(s): S06.0X0A - Concussion without loss of consciousness, initial encounter Condition: Stable Follow-Up: YASH JAQUEZ DO [Primary Care Provider] - Prescriptions: traMADol [Ultram] 50 mg PO Q6H PRN 3 Days #12 tablet PRN Reason: Headache Ondansetron Odt [Zofran] 4 mg TL Q6H PRN #10 tablet PRN Reason: Nausea / Vomiting Comments: Your basic lab tests are normal. Your vital signs are good. Your head and neck CT scans did not show any acute injuries. It does sound like a mild concussion with the headache and nausea feeling unusual. I would anticipate the symptoms to improve over a few days. Tramadol every 6 hours if needed for pains. Ondansetron if needed for nausea. Follow-up with your primary care or return to the ER if not improved well over the next several days or if worsening. Discharge Date/Time: 12/14/20 01:05
[2020-12-13 22:05] LABS: BASOPHILS # (AUTO) 0.1 10^3/uL (0.0-0.1); BASOPHILS % (AUTO) 0.9 %; EOSINOPHILS # (AUTO) 0.2 10^3/uL (0.0-0.7); EOSINOPHILS % (AUTO) 2.8 %; HCT - HEMATOCRIT 40.9 % (37.0-47.0); HGB - HEMOGLOBIN 12.5 g/dL (12.0-16.0); LYMPHOCYTES # (AUTO) 1.6 10^3/uL (1.5-3.5); LYMPHOCYTES % (AUTO) 24.7 %; MEAN CORPUSCULAR HEMOGLOBIN 26.7 pg (27.0-31.0); MEAN CORPUSCULAR HGB CONC 30.6 g/dL (32.0-36.0); MEAN CORPUSCULAR VOLUME 87.2 fL (81.0-99.0); MEAN PLATELET VOLUME 9.7 fL (7.9-10.8); MONOCYTES # (AUTO) 0.6 10^3/uL (0.0-1.0); MONOCYTES % (AUTO) 9.3 %; PLT - PLATELET COUNT 280 10^3/uL (130-450); RED BLOOD COUNT 4.69 10^6/uL (4.20-5.40); RED CELL DISTRIBUTION WIDTH 13.2 % (12.0-15.0); WHITE BLOOD COUNT 6.5 x10^3/uL (4.8-10.8)
[2020-12-13 22:18] LABS: ALBUMIN/GLOBULIN RATIO 1.4 (1.0-2.2); BILIRUBIN,TOTAL 0.4 mg/dL (0.2-1.0); CREATININE 1.2 mg/dL (0.4-1.0); POTASSIUM 3.8 mmol/L (3.5-5.0); TOTAL PROTEIN 6.8 g/dL (6.7-8.2)
--- OUTSIDE RECORDS SUMMARY | 2020-12-13 22:47 | EXTERNAL MEDICAL SUMMARY RPT | Continuity of Care Document ---
:1960 Demographics Phone Unavailable Preferred Language Unknown Marital Status Unknown Scientology Affiliation Unknown Race Unknown Ethnic Group Unknown Author Organization [facility] Address [address] [phone] Phone Allergies Encounters Medications Problems Results
[2020-12-13] MEDS ORDERED: HYDROmorphone 1 MG/ML CARPUJECT IVP STA (23:41)
[2020-12-13] MEDS ORDERED: traMADol 50 MG TABLET PO STA (23:42)
[2020-12-14 00:11] VITALS: BP 141/79
--- NOTE | 2020-12-14 08:21 | CT Report ---
PROCEDURE: HEAD WO INDICATIONS: fainted and struck head on fall TECHNIQUE: Noncontrast 4.5 mm thick angled axial sections acquired from the foramen magnum to the vertex. For r adiation dose reduction, the following was used: automated exposure control, adjustment of mA and/or kV according to patient size. COMPARISON: CT head 11/24/2019 FINDINGS: Image quality: Mild motion is present, limiting areas of fine detail evaluation. CSF spaces: Basal cisterns are patent. No extra-axial fluid collections. Ventricles are normal in size and shape. Brain: No midline shift. No intracranial masses or hemorrhage. Springer-white matter interface is norm al. Skull and face: Calvarium and visualized facial bones are intact, without suspicious lesions. Sinuses: Visualized sinuses and mastoids are clear. IMPRESSION: 1. No acute intracranial process. The above findings are concordant with preliminary report. Reviewed by: Joellen Lucio MD on 12/14/2020 8:20 AM PDT Approved by: Joellen Lucio MD on 12/14/2020 8:20 AM PDT Station ID: [id number]
--- NOTE | 2020-12-14 08:24 | CT Report ---
PROCEDURE: CERVICAL SPINE WO INDICATIONS: fainted and struck head on fall TECHNIQUE: Noncontrast 3 mm thick sections acquired from the skull base to the T4 level. Sagittal and coronal r eformats were then constructed. For radiation dose reduction, the following was used: automated exp osure control, adjustment of mA and/or kV according to patient size. COMPARISON: CT cervical spine 11/24/2019. FINDINGS: Image quality: Excellent. Bones: No fractures or dislocations. Visualized superior ribs are intact. Posterior and interbody fusion is present from C4 through C7. Hardware is intact. Soft tissues: Prevertebral soft tissues are normal in thickness. No paravertebral hematomas. No ap ical pneumothoraces. IMPRESSION: 1. No visualized fracture. The above findings are concordant with preliminary report. Reviewed by: Joellen Lucio MD on 12/14/2020 8:23 AM PDT Approved by: Joellen Lucio MD on 12/14/2020 8:23 AM PDT Station ID: [id number]
== END 2020-12-14 01:05 | disposition home or self-care (01) ==
LOC: EDUNIT# → ED 21:45
DX: R55 Syncope and collapse (principal); S06.0X0A Concussion without loss of consciousness, initial encounter; S00.03XA Contusion of scalp, initial encounter; W18.30XA Fall on same level, unspecified, initial encounter; Z98.1 Arthrodesis status; I10 Essential (primary) hypertension; E11.9 Type 2 diabetes mellitus without complications; Z79.4 Long term (current) use of insulin
CPT/HCPCS: 36415; 70450; 72125; 80053; 83690; 83735; 85025; 93005; 96361; 96374; 96375; 96376; 99283; 99284; A9270; J1170

== ENCOUNTER 2020-12-22 21:10 | Outpatient (CLI) | payer MEDICAID | END 2020-12-22 21:11 | disposition critical access hospital (66) | LOC: EMS 21:10 | DX: R55 Syncope and collapse (principal); R51.9 Headache, unspecified | CPT/HCPCS: A0425; A0427; A0999 ==

== ENCOUNTER 2020-12-22 21:27 | Emergency (ER) | payer MEDICAID ==
[2020-12-22] MEDS ORDERED: SODIUM CHLORIDE 0.9% 1,000 ML IV STA (21:48)
[2020-12-22] MEDS ORDERED: HYDROmorphone 1 MG/ML CARPUJECT IVP STA (21:49)
--- NOTE | 2020-12-22 21:51 | ED Physician Documentation ---
PD HPI SYNCOPE - Stated complaint Stated Complaint: SYNCOPE, GLF, HIT HEAD - Chief complaint Chief Complaint: Neuro - History obtained from History obtained from: Patient - History of Present Illness Witnessed: Unwitnessed Timing - onset: Today Duration: Seconds Preceding symptoms: Nausea / vomiting, Light headed, Generalized weakness. No: Headache, Chest pain Associated symptoms: Headache, Nausea / vomiting. No: Abdominal pain Contributing factors: Recent med change (patient states has had increased doses BP meds in past couple months and also had Effexor started couple months ago.), Just stood up Injury occurred: Fell Similar symptoms before: No diagnosis (postural syncope several times recently and has had lighthead with standing mcfp.) Recently seen: Clinic (states had BP med changed in past couple weeks, increased, and also Efexor dose increased. Prazosin dose has remained same at 10 mg daily (two 5 mg tabs daily).), Emergency Dept Review of Systems Constitutional: denies: Fever, Chills Nose: denies: Rhinorrhea / runny nose, Congestion Throat: denies: Sore throat Cardiac: reports: Chest pain / pressure (right sided after falling.). denies: Pedal edema Respiratory: denies: Dyspnea, Cough GI: denies: Abdominal Pain, Nausea, Vomiting, Diarrhea Skin: denies: Abrasion (s), Laceration (s) Neurologic: reports: Syncope (several times recently, not just lightheaded with standing. Typically occurring during night.). denies: Focal weakness, Numbness PD PAST MEDICAL HISTORY - Past Medical History Cardiovascular: Hypertension, High cholesterol, Other Respiratory: Asthma, COPD, Shortness of breath, Sleep apnea, CPAP use Neuro: None Endocrine/Autoimmune: Type 2 diabetes GI: GERD, Chronic diarrhea, Chronic constipation, Other PRINTING ASSISTANT: None : None HEENT: Chronic vision loss, Chronic sinusitis Psych: Depression, Anxiety, Panic attacks, Post traumatic stress disorder, Claustrophobia Musculoskeletal: Osteoarthritis, Fibromyalgia, Chronic back pain, Other Derm: Psoriasis, Rosacea - Past Surgical History Past Surgical History: Yes General: Colonoscopy, EGD, Other Ortho: Arthroscopic surgery, Spine surgery, Other /PRINTING ASSISTANT: Hysterectomy, Oophrectomy, 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, Other - Present Medications Home Medications: Ambulatory Orders Medication Instructions Recorded Confirmed Fenofibrate [Lofibra] 160 mg PO BID 02/24/13 12/22/20 Lansoprazole 30 mg PO DAILY 02/24/13 12/22/20 Mirtazapine [Remeron] 15 mg PO QPM 02/24/13 12/22/20 Montelukast [Singulair] 10 mg PO QPM 02/24/13 12/22/20 Prazosin HCl [Minipress] 12 mg PO DAILY PM 02/24/13 12/22/20 Naproxen [Naprosyn] 500 mg PO BID PRN #0 tablet 05/12/16 12/22/20 Calcium Carbonate/Vitamin D3 1 each PO DAILY 01/27/18 06/15/19 [Calcium 500-Vit D3 200 Tablet] Cholecalciferol [Vitamin D3] 5,000 unit PO BID 01/27/18 06/15/19 Empagliflozin [Jardiance] 10 mg PO DAILY 01/27/18 12/22/20 Fluticasone [Flonase] 2 sprays MELISSA DAILY 01/27/18 12/22/20 Lactobacillus Acidophilus 1 each PO DAILY 01/27/18 06/15/19 [Acidophilus Lactobacilli] Levalbuterol [Xopenex] 1.25 mg INH Q8HR 01/27/18 12/22/20 Losartan [Cozaar] 50 mg PO BID 01/27/18 12/22/20 Omega3/Dha/Epa/Fish Oil/Vit D3 1 each PO DAILY 01/27/18 12/22/20 [Fish Oil-Vit D3 Softgel] Triamcinolone 0.1% Oint [Kenalog 1 applic TOP BID 01/27/18 12/22/20 0.1% Oint] glipiZIDE [Glucotrol] 10 mg PO DAILY 01/27/18 12/22/20 Clotrimazole 1 gm TP TID #1 cream..g. 02/24/18 12/22/20 Tramadol HCl 100 mg PO TID 02/24/18 12/22/20 Valbenazine Tosylate [Ingrezza] 80 mg PO DAILY 02/24/18 12/22/20 Dicyclomine [Bentyl] 10 mg PO QID 07/17/18 12/22/20 Insulin Aspart Prot/Insuln Asp 24 units SUBQ BID 07/17/18 12/22/20 [Novolog Mix 70-30 Flexpen Syrn] Tizanidine HCl [Zanaflex] 4 mg PO TID 07/17/18 12/22/20 predniSONE [Deltasone] 10 mg PO [id number] #42 tab 02/22/19 06/15/19 Beclomethasone 40 Mcg [Qvar 40] 2 puffs IH BID 06/15/19 06/15/19 Buspirone HCl 30 mg PO BID 06/15/19 12/22/20 Clobetasol 0.05% Oint [Temovate 1 applic TOP BID 06/15/19 06/15/19 0.05% Oint] Ergocalciferol [Vitamin D2] 1 cap PO 06/15/19 Fexofenadine HCl [Shellie Allergy] 1 tab PO DAILY 06/15/19 12/22/20 Fluconazole 150 mg PO DAILY PRN 06/15/19 06/15/19 Gabapentin 1 cap PO TID 06/15/19 12/22/20 Insulin Glargine [Lantus Solostar] 40 units SUBQ BID 06/15/19 12/22/20 Ketorolac Tromethamine 1 - 2 ml IV DAILY 06/15/19 06/15/19 Metformin HCl [Glucophage Xr] 500 mg PO BID 06/15/19 12/22/20 PARoxetine HCL [Paroxetine HCl] 20 mg PO DAILY 06/15/19 12/22/20 Prochlorperazine [Compazine] 1 - 2 tab PO Q6HR PRN 06/15/19 06/15/19 Ramelteon 8 mg PO QPM 06/15/19 12/22/20 Trazodone HCl 50 mg PO QPM 06/15/19 12/22/20 Lorazepam [Ativan] 1 mg PO TID PRN #15 tablet 07/27/19 12/22/20 busPIRone [Buspar] 2 tab PO BID #60 tablet 07/27/19 12/22/20 Ondansetron Odt [Zofran] 4 mg TL Q6H PRN #10 tablet 12/13/20 12/22/20 traMADol [Ultram] 50 mg PO Q6H PRN 3 Days #12 tablet 12/13/20 12/22/20 Meloxicam [Mobic] 15 mg PO DAILY 12/22/20 12/22/20 Prazosin HCl [Minipress] 2 mg PO DAILY 30 Days #30 12/22/20 - Allergies Allergies/Adverse Reactions: Allergies Allergy/AdvReac Type Severity Reaction Status Date / Time acetaminophen [From Tylenol] Allergy Severe Anaphylaxis Verified 12/22/20 21:28 adhesive tape Allergy Severe Swelling/Er Verified 12/22/20 21:28 ythema corn [Oktaha] Allergy Severe Cramps Verified 12/22/20 21:28 ibuprofen [From Motrin] Allergy Severe Anaphylaxis Verified 12/22/20 21:28 latex Allergy Severe Edema/Eryth Verified 12/22/20 21:28 cristopher tetanus toxoid, adsorbed Allergy Severe Local Verified 12/22/20 21:28 swelling/Pain theophylline Allergy Severe Anaphylaxis Verified 12/22/20 21:28 wheat Allergy Intermediate Cramps Verified 12/22/20 21:28 aripiprazole [From Abilify] Allergy Unknown Verified 12/22/20 21:28 benztropine Allergy Edema Verified 12/22/20 21:28 desvenlafaxine Allergy Unknown Verified 12/22/20 21:28 duloxetine Allergy Unknown Verified 12/22/20 21:28 gabapentin Allergy GI upset Verified 12/22/20 21:28 gluten Allergy GI upset Verified 12/22/20 21:28 loratadine Allergy Unknown Verified 12/22/20 21:28 spironolactone Allergy Unknown Verified 12/22/20 21:28 zolpidem Allergy Unknown Verified 12/22/20 21:28 bupropion AdvReac Depression Verified 12/22/20 21:28 lisinopril AdvReac Cough Verified 12/22/20 21:28 oats Allergy Intermediate Cramps Uncoded 12/22/20 21:28 rice Allergy Intermediate Cramps Uncoded 12/22/20 21:28 milk AdvReac Intermediate Cramps Uncoded 12/22/20 21:28 - Social History Does the pt smoke?: No Smoking Status: Never smoker Does the pt drink ETOH?: No Does the pt have substance abuse?: No - Immunizations Immunizations are current?: Yes - POLST Patient has POLST: Yes PD ED PE NORMAL - Vitals Vital signs reviewed: Yes - General General: Alert and oriented X 3, No acute distress, Well developed/nourished - HEENT HEENT: PERRL, EOMI, Ears normal, Other (some tender back of head with mild local swelling. Neck not tender and has ROM without pain. ) - Neck Neck: Supple, no meningeal sign, No bony TTP, No adenopathy - Cardiac Cardiac: RRR, No murmur - Respiratory Respiratory: Clear bilaterally, Other (mild chest wall tender right lateral ribs/chest without crepitance. ) - Abdomen Abdomen: Soft, Non tender - Back Back: No CVA TTP, No spinal TTP - Derm Derm: Normal color, Warm and dry - Extremities Extremities: No tenderness to palpate, Normal ROM s pain, No edema, No calf tenderness / cord - Neuro Neuro: Alert and oriented X 3, No motor deficit, No sensory deficit, Normal speech Eye Opening: Spontaneous Motor: Obeys Commands Verbal: Oriented GCS Score: 15 - Psych Psych: Normal mood Results - Vitals Vitals: Vital Signs - 24 hr 12/22/20 12/22/20 12/22/20 21:28 21:36 22:13 Temperature 36.2 C L 36.2 C L 36.3 C L Heart Rate 74 74 71 Respiratory 16 16 15 Rate Blood Pressure 103/58 L 103/58 L 110/54 L O2 Saturation 95 95 91 L 12/22/20 12/22/20 12/22/20 23:04 23:35 23:46 Temperature 36.4 C L 36.4 C L 36.4 C L Heart Rate 73 73 73 Respiratory 15 15 15 Rate Blood Pressure 148/90 H 124/65 130/72 O2 Saturation 94 94 95 Oxygen O2 Source Room air - Labs Labs: Laboratory Tests 12/22/20 12/22/20 21:57 21:57 Sodium 132 L Potassium 4.5 Chloride 100 L Carbon Dioxide 25 Anion Gap 7.0 BUN 33 H Creatinine 1.4 H Estimated GFR (MDRD) 38 L Glucose 239 H Calcium 9.1 Magnesium 1.9 Total Bilirubin 0.6 AST 26 ALT 23 Alkaline Phosphatase 63 Total Protein 6.8 Albumin 3.9 Globulin 2.9 Albumin/Globulin Ratio 1.3 Lipase 39 TSH 1.94 Cortisol 23.0 - Rads (name of study) head CT Radiology: Prelim report reviewed (no acute process), See rad report chest xray Radiology: Prelim report reviewed (normal), See rad report PD MEDICAL DECISION MAKING - ED course Complexity details: reviewed old records, reviewed results, considered differential (consider med related postural syncope/hypotension. ), d/w patient Departure - Departure Disposition: 01 Home, Self Care Clinical Impression: Postural syncope Head contusion Qualifiers: Encounter type: initial encounter Contusion of head detail: scalp Qualified Code(s): S00.03XA - Contusion of scalp, initial encounter Chest wall contusion Qualifiers: Encounter type: initial encounter Laterality: right Qualified Code(s): S20.211A - Contusion of right front wall of thorax, initial encounter Condition: Stable Record reviewed to determine appropriate education?: Yes Instructions: ED Contusion Scalp, ED Hypotension Orthostatic Follow-Up: YASH JAQUEZ DO [Primary Care Provider] - Prescriptions: Prazosin HCl [Minipress] 2 mg PO DAILY 30 Days #30 Comments: Your blood pressure presenting this evening was a relatively low, 103/58. This is a lower than on previous visits. It did improve to 148/90 with some fluids IV. You have had the fainting and lightheadedness with standing more symptomatic and frequently lately. It may be a combination of your various medications. Your prazosin and Effexor are both metabolized in the liver by the cytochrome P450 system. Your increased dose of Effexor recently may be interacting with the metabolism of the prazosin causing a stronger effect. Your new blood pressure medicine may be adding in there as well. For now I would suggest you decreasing your new blood pressure medicine to 1/2 tablet daily (so 12.5 mg) from the current 25 mg tablet. I would also decrease your prazosin from the current 10 mg daily (2 of the 5 mg capsules) down to 7 mg daily (one 5 mg and a new prescription 2 mg capsule). Continue your Effexor at the current 75 mg. Continue your other usual medicines. Stay well-hydrated. Low-salt diet. Follow-up with your primary care this week. Discharge Date/Time: 12/23/20 00:42
--- OUTSIDE RECORDS SUMMARY | 2020-12-22 21:54 | EXTERNAL MEDICAL SUMMARY RPT | Continuity of Care Document ---
:1960 Demographics Phone Unavailable Preferred Language Unknown Marital Status Unknown Adventism Affiliation Unknown Race Unknown Ethnic Group Unknown Author Organization [place] Address [address] [phone] Phone Allergies Encounters Medications Problems Results
[2020-12-22 22:16] LABS: ALBUMIN 3.9 g/dL (3.2-5.5); ALBUMIN/GLOBULIN RATIO 1.3 (1.0-2.2); BILIRUBIN,TOTAL 0.6 mg/dL (0.2-1.0); CALCIUM 9.1 mg/dL (8.5-10.3); CREATININE 1.4 mg/dL (0.4-1.0); MAGNESIUM 1.9 mg/dL (1.7-2.8); POTASSIUM 4.5 mmol/L (3.5-5.0); TOTAL PROTEIN 6.8 g/dL (6.7-8.2)
[2020-12-22 22:35] LABS: THYROID STIMULATING HORMONE 1.94 uIU/mL (0.34-5.60)
[2020-12-22 23:47] VITALS: BP 130/72
--- NOTE | 2020-12-23 07:07 | CT Report ---
PROCEDURE: HEAD WO INDICATIONS: syncope/fall with head contusion/headache TECHNIQUE: Noncontrast 4.5 mm thick angled axial sections acquired from the foramen magnum to the vertex. For r adiation dose reduction, the following was used: automated exposure control, adjustment of mA and/or kV according to patient size. COMPARISON: None. FINDINGS: Image quality: Excellent. CSF spaces: Basal cisterns are patent. No extra-axial fluid collections. Ventricles are normal in size and shape. Brain: No midline shift. No intracranial masses or hemorrhage. Springer-white matter interface is norm al. Skull and face: Calvarium and visualized facial bones are intact, without suspicious lesions. Sinuses: Visualized sinuses and mastoids are clear. IMPRESSION: CT head without acute intracranial abnormalities or acute calvarial fractures. No significant discrepancy with initial interpretation by overnight radiologist. Reviewed by: Robin Kong MD on 12/23/2020 7:05 AM PDT Approved by: Robin Kong MD on 12/23/2020 7:05 AM PDT Station ID: [id number]
--- NOTE | 2020-12-23 08:50 | XRAY Report ---
PROCEDURE: Chest 1 View X-Ray INDICATIONS: right chest pain post fall TECHNIQUE: One view of the chest was acquired. COMPARISON: 03/17/2019 FINDINGS: Surgical changes and devices: Postoperative changes from prior cervical fusion.. Lungs and pleura: No pleural effusions or pneumothorax. Lungs are clear. Mediastinum: Mediastinal contours appear stable. Heart size is stable. Bones and chest wall: No suspicious bony lesions. Overlying soft tissues appear unremarkable. IMPRESSION: Chest without acute cardiopulmonary abnormality. No significant discrepancy with initial interpretation by overnight radiologist. Reviewed by: Robin Kong MD on 12/23/2020 8:49 AM PDT Approved by: Robin Kong MD on 12/23/2020 8:49 AM PDT Station ID: [id number]
== END 2020-12-23 00:42 | disposition home or self-care (01) ==
LOC: EDUNIT# → ED 21:27 → SUPCPDRO 21:27 → ED 12-23 00:42
DX: S00.03XA Contusion of scalp, initial encounter (principal); S20.211A Contusion of right front wall of thorax, initial encounter; W18.12XA Fall from or off toilet with subsequent striking against object, initial encounter; I10 Essential (primary) hypertension; E11.9 Type 2 diabetes mellitus without complications; Z79.4 Long term (current) use of insulin
CPT/HCPCS: 36415; 70450; 71045; 80053; 82533; 83690; 83735; 84443; 96374; 99284; J1170

== ENCOUNTER 2020-12-26 10:42 | Outpatient (CLI) | payer MEDICAID ==
--- NOTE | 2020-12-26 12:13 | SLEEP CARE CONSULTATION ---
Information from patient questionnaire entered by Libby Grace. I have reviewed and concur with the information entered by Libby Grace. This document represents the service I personally performed and the decisions made by me, Boris Levine MD, [facility]. History of Present Illness Service Date and Time: 12/26/2020 1042 Previous diagnosis: Mild, Obstructive Sleep Apnea-Hypopnea Syndrome AHI: 9.6 (in 2007) Reason for follow up: annual (last seen 08/2019) Equipment type: CPAP Equipment obtained from: [employer] Mask style: Nasal Mask brand: Respironics (Wisp) Prior sleep studies: Yes Year and Where: 2007 - [facility] Type of Sleep Study: Polysomnography HPI additional information: HPI: Ms. Tabor returned today for annual follow up of nasal CPAP therapy. She was diagnosed to have mild obstructive sleep apnea-hypopnea syndrome. The patient wears with a Respironics Wisp nasal mask. She reports using the device nightly and all through the night. The compliance data show usage in 180 out of the past 180 nights, averaging 17.7 hours a day. The > 4 hour compliance rate for the past 180 days is 100%. She complained of some dryness and nasal congestion. She thinks that the pressure of 9 cmH2O is comfortable (6 9 cmH2O was too low). On the CPAP therapy she notices improvement in her sleep quality, and that she wakes up feeling fresher in the morning and more awake/alert during the day. The [place] Sleepiness Scale score 12 (was 10). The average residual AHI is 0.6; and average time in large leak per day is 16 minutes. CPAP Compliance Data - Data Reviewed with Patient Average duration of nightly device use: 17 hr 44 min Compliance rate %: 100 (180 days) Current pressure setting (cmH2O): 9 Humidity settin Heated hose settin Average residual AHI: 0.6 Average large leak: 16 min 6 sec Subjective Patient concerns: reports: air blowing in eyes, mask leak noise, nasal congestion, dry mouth, nose, throat Initial [place] Sleepiness Scale score: 7 (in 2007) Current [place] Sleepiness Scale score: 12 Allergies and Home Medications Drug allergies reviewed: Yes Home medication list reviewed: Yes Review of Systems Review of systems same as previous: Yes Physical Exam Height: 5 ft 2 in Weight: 274 lb Body Mass Index: 50.1 BMI Classification: Morbidly Obese Impression and Plan IMPRESSION: 1. Obstructive Sleep Apnea-Hypopnea Syndrome, mild, with the patient doing well on nasal CPAP therapy. She has excellent compliance and significant clinical improvement. The current pressure appears effective and comfortable. Her mask fits well. Overall, she is very satisfied with treatment and plans to continue with it long-term. No adjustment is necessary today. PLAN: 1. Continue with CPAP set at 9 cmH2O. 2. Try to lose weight 3. Prescription made for CPAP supplies for her to switch durable medical supplier. 4. A sample Respironics Wisp nasal mask given to her to take home. 5. Return in one year for follow up or earlier if there is any problem with the treatment. Mask provided: Yes Follow up recommended for: Weight management Visit Type: In Office Time Spent with Patient (minutes): 15 Provider Statement: I spent 100% of the Face to Face Visit with the patient with greater than 50% spent counseling the patient and coordination of care.
== END 2020-12-26 10:43 | disposition home or self-care (01) ==
LOC: SC 10:42
PROVIDERS: ATTEND Internal Medicine Pulmonary Disease
DX: G47.33 Obstructive sleep apnea (adult) (pediatric) (principal); E66.01 Morbid (severe) obesity due to excess calories; Z68.43 Body mass index [BMI] 50.0-59.9, adult
CPT/HCPCS: 99212; 99213

== ENCOUNTER 2021-03-02 10:03 | Emergency (ER) | payer MEDICAID ==
--- NOTE | 2021-03-02 10:21 | ED Physician Documentation ---
PD HPI UPPER EXT INJURY - Stated complaint Stated Complaint: CAT BITES - Chief complaint Chief Complaint: General - History obtained from History obtained from: Patient - History of Present Illness Location: Right (thumb), Left (index and middle), Finger Type of injury: Other (bite wound from her cat yesterday, with redness at index finger wound today.) Where injury occurred: Home Timing - onset: Yesterday Timing - duration: Days Timing - details: Still present Worsened by: Palpating. No: Moving Associated symptoms: Swelling, Discolored (rtedness). No: Weakness, Numbness Contributing factors: No: Anticoagulated, Prior ortho surgery Similar symptoms before: Has not had sx before Recently seen: Not recently seen Review of Systems Constitutional: denies: Fever, Chills, Myalgias GI: denies: Nausea, Vomiting Neurologic: denies: Focal weakness, Numbness PD PAST MEDICAL HISTORY - Past Medical History Cardiovascular: Hypertension, High cholesterol, Other Respiratory: Asthma, COPD, Shortness of breath, Sleep apnea, CPAP use Neuro: None Endocrine/Autoimmune: Type 2 diabetes GI: GERD, Chronic diarrhea, Chronic constipation, Other DIGITAL CARTOGRAPHER: None : None HEENT: Chronic vision loss, Chronic sinusitis Psych: Depression, Anxiety, Panic attacks, Post traumatic stress disorder, Claustrophobia Musculoskeletal: Osteoarthritis, Fibromyalgia, Chronic back pain, Other Derm: Psoriasis, Rosacea - Past Surgical History Past Surgical History: Yes General: Colonoscopy, EGD, Other Ortho: Arthroscopic surgery, Spine surgery, Other /DIGITAL CARTOGRAPHER: Hysterectomy, Oophrectomy, 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, Other - Present Medications Home Medications: Ambulatory Orders Medication Instructions Recorded Confirmed Fenofibrate [Lofibra] 160 mg PO BID 02/24/13 12/22/20 Lansoprazole 30 mg PO DAILY 02/24/13 12/22/20 Mirtazapine [Remeron] 15 mg PO QPM 02/24/13 12/22/20 Montelukast [Singulair] 10 mg PO QPM 02/24/13 12/22/20 Prazosin HCl [Minipress] 12 mg PO DAILY PM 02/24/13 12/22/20 Naproxen [Naprosyn] 500 mg PO BID PRN #0 tablet 05/12/16 12/22/20 Calcium Carbonate/Vitamin D3 1 each PO DAILY 01/27/18 06/15/19 [Calcium 500-Vit D3 200 Tablet] Cholecalciferol [Vitamin D3] 5,000 unit PO BID 01/27/18 06/15/19 Empagliflozin [Jardiance] 10 mg PO DAILY 01/27/18 12/22/20 Fluticasone [Flonase] 2 sprays MELISSA DAILY 01/27/18 12/22/20 Lactobacillus Acidophilus 1 each PO DAILY 01/27/18 06/15/19 [Acidophilus Lactobacilli] Levalbuterol [Xopenex] 1.25 mg INH Q8HR 01/27/18 12/22/20 Losartan [Cozaar] 50 mg PO BID 01/27/18 12/22/20 Omega3/Dha/Epa/Fish Oil/Vit D3 1 each PO DAILY 01/27/18 12/22/20 [Fish Oil-Vit D3 Softgel] Triamcinolone 0.1% Oint [Kenalog 1 applic TOP BID 01/27/18 12/22/20 0.1% Oint] glipiZIDE [Glucotrol] 10 mg PO DAILY 01/27/18 12/22/20 Clotrimazole 1 gm TP TID #1 cream..g. 02/24/18 12/22/20 Tramadol HCl 100 mg PO TID 02/24/18 12/22/20 Valbenazine Tosylate [Ingrezza] 80 mg PO DAILY 02/24/18 12/22/20 Dicyclomine [Bentyl] 10 mg PO QID 07/17/18 12/22/20 Insulin Aspart Prot/Insuln Asp 24 units SUBQ BID 07/17/18 12/22/20 [Novolog Mix 70-30 Flexpen Syrn] Tizanidine HCl [Zanaflex] 4 mg PO TID 07/17/18 12/22/20 predniSONE [Deltasone] 10 mg PO [id number] #42 tab 02/22/19 06/15/19 Beclomethasone 40 Mcg [Qvar 40] 2 puffs IH BID 06/15/19 06/15/19 Buspirone HCl 30 mg PO BID 06/15/19 12/22/20 Clobetasol 0.05% Oint [Temovate 1 applic TOP BID 06/15/19 06/15/19 0.05% Oint] Ergocalciferol [Vitamin D2] 1 cap PO 06/15/19 Fexofenadine HCl [Shellie Allergy] 1 tab PO DAILY 06/15/19 12/22/20 Fluconazole 150 mg PO DAILY PRN 06/15/19 06/15/19 Gabapentin 1 cap PO TID 06/15/19 12/22/20 Insulin Glargine [Lantus Solostar] 40 units SUBQ BID 06/15/19 12/22/20 Ketorolac Tromethamine 1 - 2 ml IV DAILY 06/15/19 06/15/19 Metformin HCl [Glucophage Xr] 500 mg PO BID 06/15/19 12/22/20 PARoxetine HCL [Paroxetine HCl] 20 mg PO DAILY 06/15/19 12/22/20 Prochlorperazine [Compazine] 1 - 2 tab PO Q6HR PRN 06/15/19 06/15/19 Ramelteon 8 mg PO QPM 06/15/19 12/22/20 Trazodone HCl 50 mg PO QPM 06/15/19 12/22/20 Lorazepam [Ativan] 1 mg PO TID PRN #15 tablet 07/27/19 12/22/20 busPIRone [Buspar] 2 tab PO BID #60 tablet 07/27/19 12/22/20 Ondansetron Odt [Zofran] 4 mg TL Q6H PRN #10 tablet 12/13/20 12/22/20 traMADol [Ultram] 50 mg PO Q6H PRN 3 Days #12 tablet 12/13/20 12/22/20 Meloxicam [Mobic] 15 mg PO DAILY 12/22/20 12/22/20 Prazosin HCl [Minipress] 2 mg PO DAILY 30 Days #30 12/22/20 Amox/Clav 875/125 [Augmentin] 1 each PO Q12H #14 tablet 03/02/21 Ondansetron Odt [Zofran] 4 mg TL Q6H PRN #10 tablet 03/02/21 oxyCODONE [Roxicodone] 5 mg PO Q4-6H PRN #10 tablet 03/02/21 - Allergies Allergies/Adverse Reactions: Allergies Allergy/AdvReac Type Severity Reaction Status Date / Time acetaminophen [From Tylenol] Allergy Severe Anaphylaxis Verified 03/02/21 10:15 adhesive tape Allergy Severe Swelling/Er Verified 03/02/21 10:15 ythema corn [[place]urt] Allergy Severe Cramps Verified 03/02/21 10:15 ibuprofen [From Motrin] Allergy Severe Anaphylaxis Verified 03/02/21 10:15 latex Allergy Severe Edema/Eryth Verified 03/02/21 10:15 cristopher tetanus toxoid, adsorbed Allergy Severe Local Verified 03/02/21 10:15 swelling/Pain theophylline Allergy Severe Anaphylaxis Verified 03/02/21 10:15 wheat Allergy Intermediate Cramps Verified 03/02/21 10:15 aripiprazole [From Abilify] Allergy Unknown Verified 03/02/21 10:15 benztropine Allergy Edema Verified 03/02/21 10:15 desvenlafaxine Allergy Unknown Verified 12/22/20 21:28 duloxetine Allergy Unknown Verified 12/22/20 21:28 gabapentin Allergy GI upset Verified 03/02/21 10:15 gluten Allergy GI upset Verified 03/02/21 10:15 loratadine Allergy Unknown Verified 03/02/21 10:15 spironolactone Allergy Unknown Verified 03/02/21 10:15 zolpidem Allergy Unknown Verified 03/02/21 10:15 bupropion AdvReac Depression Verified 03/02/21 10:15 lisinopril AdvReac Cough Verified 03/02/21 10:15 oats Allergy Intermediate Cramps Uncoded 03/02/21 10:15 rice Allergy Intermediate Cramps Uncoded 03/02/21 10:15 milk AdvReac Intermediate Cramps Uncoded 03/02/21 10:15 - Social History Does the pt smoke?: No Smoking Status: Never smoker Does the pt drink ETOH?: No Does the pt have substance abuse?: No - Immunizations Immunizations are current?: Yes - POLST Patient has POLST: Yes PD ED PE NORMAL - Vitals Vital signs reviewed: Yes - General General: Alert and oriented X 3, No acute distress, Well developed/nourished - Derm Derm: Normal color, Warm and dry - Extremities Extremities: Other (right thumb with small puncture without tenderness nor redness. left middle finger with small lac, without infection. left index dorsal proximal phalanx with redness and swelling at small puncture wound site, without drainage nor fluctuance. Redness extends to just proximal of MCP.) - Neuro Neuro: Alert and oriented X 3, No motor deficit (can extend finger without pain proximally. ), No sensory deficit, Normal speech Results - Vitals Vitals: Vital Signs - 24 hr 03/02/21 03/02/21 10:10 11:19 Temperature 36.8 C 36.4 C L Heart Rate 74 75 Respiratory 17 20 Rate Blood Pressure 178/100 H 165/98 H O2 Saturation 99 95 Oxygen O2 Source Room air PD MEDICAL DECISION MAKING - ED course Complexity details: considered differential (early infection of index finger bite. No drainage. Will start Augmentin. ), d/w patient Departure - Departure Disposition: Home, Self Care Clinical Impression: Wound infection Cat bite of hand Qualifiers: Encounter type: initial encounter Laterality: left Qualified Code(s): S61.452A - Open bite of left hand, initial encounter; W55.01XA - Bitten by cat, initial encounter Condition: Stable Record reviewed to determine appropriate education?: Yes Instructions: ED Bite Cat Follow-Up: YASH JAQUEZ DO [Primary Care Provider] - Prescriptions: Amox/Clav 875/125 [Augmentin] 1 each PO Q12H #14 tablet oxyCODONE [Roxicodone] 5 mg PO Q4-6H PRN #10 tablet PRN Reason: Pain Ondansetron Odt [Zofran] 4 mg TL Q6H PRN #10 tablet PRN Reason: Nausea / Vomiting Comments: Continue with the cleaning of the wounds and local antibiotic ointment and bandages as you have been doing. Add Augmentin antibiotic twice daily for the next 5 to 7 days. We want this to look completely resolved before stopping the medicines. Use aspirin if needed for mild pain or oxycodone if needed for worse pain (combined with the O dancer Eric) in the short-term. I would anticipate improvement of this over the next day or two and resolution by 3 to 5 days. There may be some incremental worsening over the next few hours until the antibiotics have more effect but this should generally be doing much better even by the end of today. Return if worsening redness swelling or pain into tomorrow. Discharge Date/Time: 03/02/21 11:20
[2021-03-02] MEDS ORDERED: AMOX/CLAV 875 MG/125 MG TABLET PO STA (10:34)
[2021-03-02] MEDS ORDERED: ONDANSETRON ODT 4 MG TABLET TL STA (10:34)
[2021-03-02] MEDS ORDERED: oxyCODONE 5 MG TABLET PO STA (10:34)
[2021-03-02 11:23] VITALS: BP 165/98
== END 2021-03-02 11:20 | disposition home or self-care (01) ==
LOC: ED 10:03
DX: S61.251A Open bite of left index finger without damage to nail, initial encounter (principal); S61.253A Open bite of left middle finger without damage to nail, initial encounter; W55.01XA Bitten by cat, initial encounter; I10 Essential (primary) hypertension; E11.9 Type 2 diabetes mellitus without complications; Z79.4 Long term (current) use of insulin
CPT/HCPCS: 99283; A9270; Q0162

== ENCOUNTER 2021-04-21 11:10 | Emergency (ER) | payer MEDICAID ==
--- NOTE | 2021-04-21 11:26 | ED Physician Documentation ---
PD HPI URI - Stated complaint Stated Complaint: SOA/COUGH/WEAKNESS - History obtained from History obtained from: Patient - History of Present Illness Timing - onset: How many days ago (5) Timing duration: Days (5) Timing details: Gradual onset, Still present (worsened a bit each day) Associated symptoms: Chills, Nasal congestion, Sore throat, Dry cough, Dyspnea. No: Fever, Swollen nodes Contributing factors: Sick contact (has been for medical appts and outpatient studies regularly. No particular epxosures per se.) Similar symptoms before: Diagnosis (exac asthma with URIs in the past.) Recently seen: Clinic (Had COVID vaccine [employer] 3rd booster 4 days ago. Was starting with hint of symptoms prior to the vaccine.) Review of Systems Constitutional: reports: Myalgias. denies: Fever, Chills Nose: reports: Congestion. denies: Rhinorrhea / runny nose Throat: reports: Sore throat Cardiac: denies: Chest pain / pressure Respiratory: reports: Dyspnea, Cough, Wheezing GI: denies: Nausea, Vomiting, Diarrhea Skin: denies: Rash, Lesions Neurologic: denies: Headache PD PAST MEDICAL HISTORY - Past Medical History Cardiovascular: Hypertension, High cholesterol, Other Respiratory: Asthma, COPD, Shortness of breath, Sleep apnea, CPAP use Neuro: None Endocrine/Autoimmune: Type 2 diabetes GI: GERD, Chronic diarrhea, Chronic constipation, Other DRILL BIT SHARPENER: None : None HEENT: Chronic vision loss, Chronic sinusitis Psych: Depression, Anxiety, Panic attacks, Post traumatic stress disorder, Claustrophobia Musculoskeletal: Osteoarthritis, Fibromyalgia, Chronic back pain, Other Derm: Psoriasis, Rosacea - Past Surgical History Past Surgical History: Yes General: Colonoscopy, EGD, Other Ortho: Arthroscopic surgery, Spine surgery, Other /DRILL BIT SHARPENER: Hysterectomy, Oophrectomy, 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, Other - Present Medications Home Medications: Ambulatory Orders Medication Instructions Recorded Confirmed Fenofibrate [Lofibra] 160 mg PO BID 02/24/13 12/22/20 Lansoprazole 30 mg PO DAILY 02/24/13 12/22/20 Mirtazapine [Remeron] 15 mg PO QPM 02/24/13 12/22/20 Montelukast [Singulair] 10 mg PO QPM 02/24/13 12/22/20 Prazosin HCl [Minipress] 12 mg PO DAILY PM 02/24/13 12/22/20 Naproxen [Naprosyn] 500 mg PO BID PRN #0 tablet 05/12/16 12/22/20 Calcium Carbonate/Vitamin D3 1 each PO DAILY 01/27/18 06/15/19 [Calcium 500-Vit D3 200 Tablet] Cholecalciferol [Vitamin D3] 5,000 unit PO BID 01/27/18 06/15/19 Empagliflozin [Jardiance] 10 mg PO DAILY 01/27/18 12/22/20 Fluticasone [Flonase] 2 sprays MELISSA DAILY 01/27/18 12/22/20 Lactobacillus Acidophilus 1 each PO DAILY 01/27/18 06/15/19 [Acidophilus Lactobacilli] Levalbuterol [Xopenex] 1.25 mg INH Q8HR 01/27/18 12/22/20 Losartan [Cozaar] 50 mg PO BID 01/27/18 12/22/20 Omega3/Dha/Epa/Fish Oil/Vit D3 1 each PO DAILY 01/27/18 12/22/20 [Fish Oil-Vit D3 Softgel] Triamcinolone 0.1% Oint [Kenalog 1 applic TOP BID 01/27/18 12/22/20 0.1% Oint] glipiZIDE [Glucotrol] 10 mg PO DAILY 01/27/18 12/22/20 Clotrimazole 1 gm TP TID #1 cream..g. 02/24/18 12/22/20 Tramadol HCl 100 mg PO TID 02/24/18 12/22/20 Valbenazine Tosylate [Ingrezza] 80 mg PO DAILY 02/24/18 12/22/20 Dicyclomine [Bentyl] 10 mg PO QID 07/17/18 12/22/20 Insulin Aspart Prot/Insuln Asp 24 units SUBQ BID 07/17/18 12/22/20 [Novolog Mix 70-30 Flexpen Syrn] Tizanidine HCl [Zanaflex] 4 mg PO TID 07/17/18 12/22/20 predniSONE [Deltasone] 10 mg PO [id number] #42 tab 02/22/19 06/15/19 Beclomethasone 40 Mcg [Qvar 40] 2 puffs IH BID 06/15/19 06/15/19 Buspirone HCl 30 mg PO BID 06/15/19 12/22/20 Clobetasol 0.05% Oint [Temovate 1 applic TOP BID 06/15/19 06/15/19 0.05% Oint] Ergocalciferol [Vitamin D2] 1 cap PO 06/15/19 Fexofenadine HCl [Shellie Allergy] 1 tab PO DAILY 06/15/19 12/22/20 Fluconazole 150 mg PO DAILY PRN 06/15/19 06/15/19 Gabapentin 1 cap PO TID 06/15/19 12/22/20 Insulin Glargine [Lantus Solostar] 40 units SUBQ BID 06/15/19 12/22/20 Ketorolac Tromethamine 1 - 2 ml IV DAILY 06/15/19 06/15/19 Metformin HCl [Glucophage Xr] 500 mg PO BID 06/15/19 12/22/20 PARoxetine HCL [Paroxetine HCl] 20 mg PO DAILY 06/15/19 12/22/20 Prochlorperazine [Compazine] 1 - 2 tab PO Q6HR PRN 06/15/19 06/15/19 Ramelteon 8 mg PO QPM 06/15/19 12/22/20 Trazodone HCl 50 mg PO QPM 06/15/19 12/22/20 Lorazepam [Ativan] 1 mg PO TID PRN #15 tablet 07/27/19 12/22/20 busPIRone [Buspar] 2 tab PO BID #60 tablet 07/27/19 12/22/20 Ondansetron Odt [Zofran] 4 mg TL Q6H PRN #10 tablet 12/13/20 12/22/20 traMADol [Ultram] 50 mg PO Q6H PRN 3 Days #12 tablet 12/13/20 12/22/20 Meloxicam [Mobic] 15 mg PO DAILY 12/22/20 12/22/20 Prazosin HCl [Minipress] 2 mg PO DAILY 30 Days #30 12/22/20 Amox/Clav 875/125 [Augmentin] 1 each PO Q12H #14 tablet 03/02/21 Ondansetron Odt [Zofran] 4 mg TL Q6H PRN #10 tablet 03/02/21 oxyCODONE [Roxicodone] 5 mg PO Q4-6H PRN #10 tablet 03/02/21 Benzonatate [Tessalon] 100 mg PO TID PRN #20 cap 04/21/21 dexAMETHasone [Decadron] 4 mg PO DAILY #5 tablet 04/21/21 - Allergies Allergies/Adverse Reactions: Allergies Allergy/AdvReac Type Severity Reaction Status Date / Time acetaminophen [From Tylenol] Allergy Severe Anaphylaxis Verified 03/02/21 10:15 adhesive tape Allergy Severe Swelling/Er Verified 03/02/21 10:15 ythema corn [[place]] Allergy Severe Cramps Verified 03/02/21 10:15 ibuprofen [From Motrin] Allergy Severe Anaphylaxis Verified 03/02/21 10:15 latex Allergy Severe Edema/Eryth Verified 03/02/21 10:15 cristopher tetanus toxoid, adsorbed Allergy Severe Local Verified 03/02/21 10:15 swelling/Pain theophylline Allergy Severe Anaphylaxis Verified 03/02/21 10:15 wheat Allergy Intermediate Cramps Verified 03/02/21 10:15 aripiprazole [From Abilify] Allergy Unknown Verified 03/02/21 10:15 benztropine Allergy Edema Verified 03/02/21 10:15 desvenlafaxine Allergy Unknown Verified 12/22/20 21:28 duloxetine Allergy Unknown Verified 12/22/20 21:28 gabapentin Allergy GI upset Verified 03/02/21 10:15 gluten Allergy GI upset Verified 03/02/21 10:15 loratadine Allergy Unknown Verified 03/02/21 10:15 spironolactone Allergy Unknown Verified 03/02/21 10:15 zolpidem Allergy Unknown Verified 03/02/21 10:15 bupropion AdvReac Depression Verified 03/02/21 10:15 lisinopril AdvReac Cough Verified 03/02/21 10:15 oats Allergy Intermediate Cramps Uncoded 03/02/21 10:15 rice Allergy Intermediate Cramps Uncoded 03/02/21 10:15 milk AdvReac Intermediate Cramps Uncoded 03/02/21 10:15 - Social History Does the pt smoke?: No Smoking Status: Never smoker Does the pt drink ETOH?: No Does the pt have substance abuse?: No - Immunizations Immunizations are current?: Yes - POLST Patient has POLST: Yes PD ED PE NORMAL - Vitals Vital signs reviewed: Yes - General General: Alert and oriented X 3, No acute distress, Well developed/nourished - HEENT HEENT: Moist mucous membranes. No: Pharynx benign (mild redness without swelling nor exudate. ) - Neck Neck: Supple, no meningeal sign, No adenopathy, No JVD - Cardiac Cardiac: RRR, No murmur - Respiratory Respiratory: No respiratory distress, Clear bilaterally (central wheeze sound with cough. No congestion. ) - Abdomen Abdomen: Soft, Non tender - Derm Derm: Normal color, Warm and dry - Extremities Extremities: No deformity, No edema, No calf tenderness / cord - Neuro Neuro: Alert and oriented X 3, No motor deficit. No: Normal speech (hoarseness) Results - Vitals Vitals: Vital Signs - 24 hr 04/21/21 11:11 Temperature 36.8 C Heart Rate 70 Respiratory 20 Rate Blood Pressure 140/48 H O2 Saturation 99 Oxygen O2 Source Room air - Labs Labs: Laboratory Tests 04/21/21 04/21/21 12:02 12:03 Nasal Adenovirus (PCR) NOT DETECTED Nasal B. parapertussis DNA (PCR) NOT DETECTED Nasal Coronavir 229E PCR NOT DETECTED Nasal Coronavir HKU1 PCR NOT DETECTED Nasal Coronavir NL63 PCR NOT DETECTED Nasal Coronavir OC43 PCR NOT DETECTED Nasal Enterovir/Rhinovir PCR NOT DETECTED Nasal Influenza B PCR NOT DETECTED Nasal Influenza A PCR NOT DETECTED Nasal Parainfluen 1 PCR NOT DETECTED Nasal Parainfluen 2 PCR NOT DETECTED Nasal Parainfluen 3 PCR NOT DETECTED Nasal Parainfluen 4 PCR NOT DETECTED Nasal RSV (PCR) DETECTED A Nasal B.pertussis DNA PCR NOT DETECTED Nasal C.pneumoniae (PCR) NOT DETECTED Melissa Human Metapneumo PCR NOT DETECTED Nasal M.pneumoniae (PCR) NOT DETECTED Nasal SARS-CoV-2 (PCR) NOT DETECTED Group A Strep Rapid Negative PD MEDICAL DECISION MAKING - ED course Complexity details: reviewed results, re-evaluated patient (doing okay breathing here. Hoarse voice. Declined neb treatment here. ), considered differential, d/w patient Departure - Departure Disposition: 01 Home, Self Care Clinical Impression: RSV bronchiolitis Dyspnea Qualifiers: Dyspnea type: shortness of breath Qualified Code(s): R06.02 - Shortness of breath; R06.00 - Dyspnea, unspecified; R06.01 - Orthopnea URI (upper respiratory infection) Qualifiers: URI type: unspecified URI Qualified Code(s): J06.9 - Acute upper respiratory infection, unspecified Condition: Stable Record reviewed to determine appropriate education?: Yes Instructions: ED RSV Bronchiolitis Follow-Up: YASH JAQUEZ DO [Primary Care Provider] - Prescriptions: dexAMETHasone [Decadron] 4 mg PO DAILY #5 tablet Benzonatate [Tessalon] 100 mg PO TID PRN #20 cap PRN Reason: Cough Comments: Your chest x-ray does not show any pneumonia. Your rapid strep test is negative. The throat culture will result in a couple of days and will call you if there is any signs of bacterial infection. However your respiratory panel is positive for RSV which is a virus that has a predilection for causing inflammation of the upper airway and bronchioles. Your test is negative for Covid. Use your home inhaler or nebulizer 3-4 times daily for the next several days to week. Add Decadron steroid daily for 5 more days. Use Tessalon if needed for cough. Recheck if not improving well over the next day or 2. You likely have some hoarseness and cough for a week or more. However there should not be worsening of your breathing. Return if worsening breathing despite the above treatments. I transmitted your prescriptions to [email or web address].
[2021-04-21] MEDS ORDERED: CHERRY SYRUP 10 ML UDC PO ONE (11:53)
[2021-04-21] MEDS ORDERED: DEXAMETHASONE 10 MG/ML VIAL PO STA (11:53)
[2021-04-21] MEDS ORDERED: BENZONATATE 100 MG CAPSULE PO STA (11:53)
[2021-04-21 12:21] LABS: RAPID STREP SCREEN Negative (Negative)
--- NOTE | 2021-04-21 12:53 | XRAY Report ---
PROCEDURE: Chest 1 View X-Ray INDICATIONS: chest pain TECHNIQUE: One view of the chest was acquired. COMPARISON: Chest x-ray 12/22/2020 FINDINGS: Surgical changes and devices: Pacer device is noted overlying the cardiac silhouette. Partially visua lized cervical fixation hardware is present. Lungs and pleura: No pleural effusions or pneumothorax. Lungs are clear. Mediastinum: Mediastinal contours appear normal. Heart size is enlarged. Bones and chest wall: No suspicious bony lesions. Overlying soft tissues appear unremarkable. IMPRESSION: No acute pulmonary process. Reviewed by: Joellen Lucio MD on 04/21/2021 12:52 PM PDT Approved by: Joellen Lucio MD on 04/21/2021 12:52 PM PDT Station ID: [id number]
[2021-04-21 13:09] LABS: B. PARAPERTUSSIS- RESP PCR PAN NOT DETECTED; B. PERTUSSIS- RESP PCR PANEL NOT DETECTED; C. PNEUMONIAE- RESP PCR PANEL NOT DETECTED; CORONAVIRUS 229E-RESP PCR NOT DETECTED; CORONAVIRUS HKU1-RESP PCR NOT DETECTED; CORONAVIRUS NL63-RESP PCR NOT DETECTED; CORONAVIRUS OC43-RESP PCR NOT DETECTED; HUMAN METAPNEUMOVIRUS NOT DETECTED; INFLUENZA A- RESP PCR PANEL NOT DETECTED; INFLUENZA B - RESP PCR PANEL NOT DETECTED; M. PNEUMONIAE- RESP PCR PANEL NOT DETECTED; PARAINFLUENZA VIRUS 1 NOT DETECTED; PARAINFLUENZA VIRUS 2 NOT DETECTED; PARAINFLUENZA VIRUS 3 NOT DETECTED; PARAINFLUENZA VIRUS 4 NOT DETECTED; RHINOVIRUS/ENTEROVIRUS NOT DETECTED; RSV- RESP PCR PANEL DETECTED; SARS-CoV-2 -RESP PCR PANEL NOT DETECTED
[2021-04-21 14:13] VITALS: BP 155/80
== END 2021-04-21 14:11 | disposition home or self-care (01) ==
LOC: ED 11:10
DX: J21.0 Acute bronchiolitis due to respiratory syncytial virus (principal); J06.9 Acute upper respiratory infection, unspecified; Z20.822 Contact with and (suspected) exposure to COVID-19; J44.0 Chronic obstructive pulmonary disease with (acute) lower respiratory infection; I10 Essential (primary) hypertension; E11.9 Type 2 diabetes mellitus without complications; Z79.4 Long term (current) use of insulin; Z79.84 Long term (current) use of oral hypoglycemic drugs
CPT/HCPCS: 0202U; 71045; 87070; 87430; 99283; 99284; A9270

== ENCOUNTER 2021-09-08 10:04 | Outpatient (CLI) | payer MEDICAID | END 2021-09-08 10:05 | disposition critical access hospital (66) | LOC: EMS 10:04 | DX: R51.9 Headache, unspecified (principal); R11.0 Nausea; M25.532 Pain in left wrist; M25.561 Pain in right knee; W18.39XA Other fall on same level, initial encounter; Y92.008 Other place in unspecified non-institutional (private) residence as the place of occurrence of the external cause | CPT/HCPCS: A0425; A0429; A0999 ==

== ENCOUNTER 2021-09-08 10:21 | Emergency (ER) | payer MEDICAID ==
[2021-09-08] MEDS ORDERED: ONDANSETRON ODT 4 MG TABLET TL STA (10:40)
[2021-09-08] MEDS ORDERED: MELOXICAM 7.5 MG TABLET PO STA (10:40)
--- NOTE | 2021-09-08 10:42 | ED Physician Documentation ---
PD HPI HEAD INJURY - Stated complaint Stated Complaint: GLF HEAD PX/NAUSEA - Chief complaint Chief Complaint: Trauma Hd/Nk - History obtained from History obtained from: Patient, EMS - Additional information Additional information: She was sitting in her chair in her leg fell asleep. When she got up her ankle buckled because of that and she landed on her elbows and hit her head on the wall. She has a severe headache and neck pain. The elbows do not hurt. She is feeling nauseous. There was no loss of consciousness. 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 : None HEENT: Chronic vision loss, Chronic sinusitis Psych: Depression, Anxiety, Panic attacks, Post traumatic stress disorder, Claustrophobia Musculoskeletal: Osteoarthritis, Fibromyalgia, Chronic back pain, Other Derm: Psoriasis, Rosacea - Past Surgical History Past Surgical History: Yes General: Colonoscopy, EGD, Other Ortho: Arthroscopic surgery, Spine surgery, Other /GLOBAL CONSUMER SECTOR VICE PRESIDENT: Hysterectomy, Oophrectomy, 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, Other - Present Medications Home Medications: Ambulatory Orders Medication Instructions Recorded Confirmed Fenofibrate [Lofibra] 160 mg PO BID 02/24/13 12/22/20 Lansoprazole 30 mg PO DAILY 02/24/13 12/22/20 Mirtazapine [Remeron] 15 mg PO QPM 02/24/13 12/22/20 Montelukast [Singulair] 10 mg PO QPM 02/24/13 12/22/20 Prazosin HCl [Minipress] 12 mg PO DAILY PM 02/24/13 12/22/20 Naproxen [Naprosyn] 500 mg PO BID PRN #0 tablet 05/12/16 12/22/20 Calcium Carbonate/Vitamin D3 1 each PO DAILY 01/27/18 06/15/19 [Calcium 500-Vit D3 200 Tablet] Cholecalciferol [Vitamin D3] 5,000 unit PO BID 01/27/18 06/15/19 Empagliflozin [Jardiance] 10 mg PO DAILY 01/27/18 12/22/20 Fluticasone [Flonase] 2 sprays MELISSA DAILY 01/27/18 12/22/20 Lactobacillus Acidophilus 1 each PO DAILY 01/27/18 06/15/19 [Acidophilus Lactobacilli] Levalbuterol [Xopenex] 1.25 mg INH Q8HR 01/27/18 12/22/20 Losartan [Cozaar] 50 mg PO BID 01/27/18 12/22/20 Omega3/Dha/Epa/Fish Oil/Vit D3 1 each PO DAILY 01/27/18 12/22/20 [Fish Oil-Vit D3 Softgel] Triamcinolone 0.1% Oint [Kenalog 1 applic TOP BID 01/27/18 12/22/20 0.1% Oint] glipiZIDE [Glucotrol] 10 mg PO DAILY 01/27/18 12/22/20 Clotrimazole 1 gm TP TID #1 cream..g. 02/24/18 12/22/20 Tramadol HCl 100 mg PO TID 02/24/18 12/22/20 Valbenazine Tosylate [Ingrezza] 80 mg PO DAILY 02/24/18 12/22/20 Dicyclomine [Bentyl] 10 mg PO QID 07/17/18 12/22/20 Insulin Aspart Prot/Insuln Asp 24 units SUBQ BID 07/17/18 12/22/20 [Novolog Mix 70-30 Flexpen Syrn] Tizanidine HCl [Zanaflex] 4 mg PO TID 07/17/18 12/22/20 predniSONE [Deltasone] 10 mg PO [id number] #42 tab 02/22/19 06/15/19 Beclomethasone 40 Mcg [Qvar 40] 2 puffs IH BID 06/15/19 06/15/19 Buspirone HCl 30 mg PO BID 06/15/19 12/22/20 Clobetasol 0.05% Oint [Temovate 1 applic TOP BID 06/15/19 06/15/19 0.05% Oint] Ergocalciferol [Vitamin D2] 1 cap PO 06/15/19 Fexofenadine HCl [Shellie Allergy] 1 tab PO DAILY 06/15/19 12/22/20 Fluconazole 150 mg PO DAILY PRN 06/15/19 06/15/19 Gabapentin 1 cap PO TID 06/15/19 12/22/20 Insulin Glargine [Lantus Solostar] 40 units SUBQ BID 06/15/19 12/22/20 Ketorolac Tromethamine 1 - 2 ml IV DAILY 06/15/19 06/15/19 Metformin HCl [Glucophage Xr] 500 mg PO BID 06/15/19 12/22/20 PARoxetine HCL [Paroxetine HCl] 20 mg PO DAILY 06/15/19 12/22/20 Prochlorperazine [Compazine] 1 - 2 tab PO Q6HR PRN 06/15/19 06/15/19 Ramelteon 8 mg PO QPM 06/15/19 12/22/20 Trazodone HCl 50 mg PO QPM 06/15/19 12/22/20 Lorazepam [Ativan] 1 mg PO TID PRN #15 tablet 07/27/19 12/22/20 busPIRone [Buspar] 2 tab PO BID #60 tablet 07/27/19 12/22/20 Ondansetron Odt [Zofran] 4 mg TL Q6H PRN #10 tablet 12/13/20 12/22/20 traMADol [Ultram] 50 mg PO Q6H PRN 3 Days #12 tablet 12/13/20 12/22/20 Meloxicam [Mobic] 15 mg PO DAILY 12/22/20 12/22/20 Prazosin HCl [Minipress] 2 mg PO DAILY 30 Days #30 12/22/20 Amox/Clav 875/125 [Augmentin] 1 each PO Q12H #14 tablet 03/02/21 Ondansetron Odt [Zofran] 4 mg TL Q6H PRN #10 tablet 03/02/21 oxyCODONE [Roxicodone] 5 mg PO Q4-6H PRN #10 tablet 03/02/21 Benzonatate [Tessalon] 100 mg PO TID PRN #20 cap 04/21/21 dexAMETHasone [Decadron] 4 mg PO DAILY #5 tablet 04/21/21 - Allergies Allergies/Adverse Reactions: Allergies Allergy/AdvReac Type Severity Reaction Status Date / Time acetaminophen [From Tylenol] Allergy Severe Anaphylaxis Verified 09/08/21 10:28 adhesive tape Allergy Severe Swelling/Er Verified 09/08/21 10:28 ythema corn [[place]] Allergy Severe Cramps Verified 09/08/21 10:28 ibuprofen [From Motrin] Allergy Severe Anaphylaxis Verified 09/08/21 10:28 latex Allergy Severe Edema/Eryth Verified 09/08/21 10:28 cristopher tetanus toxoid, adsorbed Allergy Severe Local Verified 09/08/21 10:28 swelling/Pain theophylline Allergy Severe Anaphylaxis Verified 09/08/21 10:28 wheat Allergy Intermediate Cramps Verified 09/08/21 10:28 aripiprazole [From Abilify] Allergy Unknown Verified 09/08/21 10:28 benztropine Allergy Edema Verified 09/08/21 10:28 desvenlafaxine Allergy Unknown Verified 09/08/21 10:28 duloxetine Allergy Unknown Verified 09/08/21 10:28 gabapentin Allergy GI upset Verified 09/08/21 10:28 gluten Allergy GI upset Verified 09/08/21 10:28 loratadine Allergy Unknown Verified 09/08/21 10:28 spironolactone Allergy Unknown Verified 09/08/21 10:28 zolpidem Allergy Unknown Verified 09/08/21 10:28 bupropion AdvReac Depression Verified 09/08/21 10:28 lisinopril AdvReac Cough Verified 09/08/21 10:28 oats Allergy Intermediate Cramps Uncoded 09/08/21 10:28 rice Allergy Intermediate Cramps Uncoded 09/08/21 10:28 milk AdvReac Intermediate Cramps Uncoded 09/08/21 10:28 - Social History Does the pt smoke?: No Smoking Status: Never smoker Does the pt drink ETOH?: No Does the pt have substance abuse?: No - Immunizations Immunizations are current?: Yes - POLST Patient has POLST: Yes PD ED PE NORMAL - Vitals Vital signs reviewed: Yes - General General: Alert and oriented X 3, No acute distress - HEENT HEENT: PERRL, EOMI - Neck Neck: Other (Diffuse especially upper cervical spine tenderness without deformity. She is in a c-collar on initial evaluation.) - Back Back: No CVA TTP, No spinal TTP - Derm Derm: Normal color, Warm and dry - Extremities Extremities: Other (Upper extremities nontender with full range of motion at the elbows.) - Neuro Neuro: Alert and oriented X 3, No motor deficit, No sensory deficit, Normal speech Eye Opening: Spontaneous Motor: Obeys Commands Verbal: Oriented GCS Score: 15 Results - Vitals Vitals: Vital Signs - 24 hr 09/08/21 10:28 Temperature 37.2 C Heart Rate 60 Respiratory 19 Rate Blood Pressure 112/46 L O2 Saturation 98 Oxygen O2 Source Room air PD MEDICAL DECISION MAKING - ED course ED course: C-collar removed at 11:36 AM after the completion of CT imaging. CT of the head and cervical spine without contrast interpreted contemporaneously by me are negative for acute trauma. The patient was counseled as to the diagnosis and need for follow-up. I counseled the patient with regard to signs and symptoms that would necessitate an urgent reevaluation in the emergency department. They understand they are welcome to return at any time if worse or if not improving as expected. This document was made in part using voice recognition software. While efforts are made to proofread this documents, sound alike and grammatical errors may occur. Departure - Departure Disposition: 01 Home, Self Care Clinical Impression: Concussion Qualifiers: Encounter type: initial encounter Loss of consciousness presence/duration: brandon martin LOC Qualified Code(s): S06.0X0A - Concussion without loss of consciousness, initial encounter Neck strain Qualifiers: Encounter type: initial encounter Qualified Code(s): S16.1XXA - Strain of muscle, fascia and tendon at neck level, initial encounter Condition: Good Record reviewed to determine appropriate education?: Yes Instructions: ED Concussion Comments: You can use your usual nonsteroidal anti-inflammatory drugs as needed for the pain. Return for new or worsening symptoms.
--- NOTE | 2021-09-08 11:33 | CT Report ---
PROCEDURE: HEAD WO INDICATIONS: head inj TECHNIQUE: Noncontrast 4.5 mm thick angled axial sections acquired from the foramen magnum to the vertex. For r adiation dose reduction, the following was used: automated exposure control, adjustment of mA and/or kV according to patient size. COMPARISON: 01/21/2021, 12/13/2020, 11/24/2019. Correlation is made with the accompanying cervical spine CT, 09/08/2021. FINDINGS: Image quality: There is streak artifact seen through the skull base. CSF spaces: Basal cisterns are patent. No extra-axial fluid collections. Ventricles are normal in size and shape. Brain: No midline shift. No intracranial masses or hemorrhage. Springer-white matter interface is norm al. Skull and face: Calvarium and visualized facial bones are intact, without suspicious lesions. Sinuses: Visualized sinuses and mastoids are clear. IMPRESSION: No intracranial hemorrhage is seen. No significant intracranial abnormality is seen. Reviewed by: Vlad Bustamante MD on 09/08/2021 10:32 AM [facility] Approved by: Vlad Bustamante MD on 09/08/2021 10:32 AM [facility] Station ID: [id number]
--- NOTE | 2021-09-08 11:35 | CT Report ---
PROCEDURE: CERVICAL SPINE WO INDICATIONS: neck inj TECHNIQUE: Noncontrast 3 mm thick sections acquired from the skull base to the T4 level. Sagittal and coronal r eformats were then constructed. For radiation dose reduction, the following was used: automated exp osure control, adjustment of mA and/or kV according to patient size. COMPARISON: 12/13/2020, 11/23/2019. Correlation is made with the accompanying head CT, 09/08/2021. FINDINGS: Image quality: There is artifact associated with the metallic hardware. Bones: No fractures or dislocations. Visualized superior ribs are intact. Posterior fusion hardware is again seen C4-C7. Disc spacers are seen at C4-C5, C5-C6, and C6-C7. Ther e has been removal of portions of the posterior elements. Soft tissues: Prevertebral soft tissues are normal in thickness. No paravertebral hematomas. No ap ical pneumothoraces. IMPRESSION: No acute fractures are seen. Intact appearing lower cervical spine fixation hardware again seen. Reviewed by: Vlad Bustamante MD on 09/08/2021 10:[address] [facility] Approved by: Vlad Bustamante MD on 09/08/2021 10:[address] [facility] Station ID: [id number]
[2021-09-08] MEDS ORDERED: MECLIZINE 12.5 MG TABLET PO STA (11:40)
[2021-09-08] MEDS ORDERED: oxyCODONE 5 MG TABLET PO STA (11:41)
[2021-09-08 12:49] VITALS: BP 124/74
== END 2021-09-08 13:04 | disposition home or self-care (01) ==
LOC: EDUNIT# → ED 10:21
DX: S06.0X0A Concussion without loss of consciousness, initial encounter (principal); S16.1XXA Strain of muscle, fascia and tendon at neck level, initial encounter; W01.198A Fall on same level from slipping, tripping and stumbling with subsequent striking against other object, initial encounter; Y92.009 Unspecified place in unspecified non-institutional (private) residence as the place of occurrence of the external cause; I10 Essential (primary) hypertension; E11.9 Type 2 diabetes mellitus without complications; Z79.4 Long term (current) use of insulin
CPT/HCPCS: 70450; 72125; 99282; 99284; A9270; Q0162

== ENCOUNTER 2021-10-30 20:32 | Outpatient (CLI) | payer MEDICAID | END 2021-10-30 23:59 | disposition EMS.NT | LOC: EMS 20:32 | DX: Z03.89 Encounter for observation for other suspected diseases and conditions ruled out (principal) ==

== ENCOUNTER 2021-11-05 10:31 | Outpatient (CLI) | payer MEDICAID | END 2021-11-05 10:32 | disposition critical access hospital (66) | LOC: EMS 10:31 | DX: M79.672 Pain in left foot (principal); R60.0 Localized edema | CPT/HCPCS: A0425; A0429; A0999 ==

== ENCOUNTER 2021-11-05 10:47 | Emergency (ER) | payer MEDICAID ==
[2021-11-05 11:04] VITALS: BP 158/80
--- NOTE | 2021-11-05 11:38 | ED Physician Documentation ---
PD HPI LOWER EXT INJURY - Stated complaint Stated Complaint: L LEG NUMB - Chief complaint Chief Complaint: Ext Problem - History obtained from History obtained from: Patient - History of Present Illness PD HPI LOW EXT INJURY LOCATION: Left, Lower leg, Ankle Type of injury: Other (patient has noted some swelling of left lower leg and ankle over several days, with increased pain today with walking. Denies direct injury to the area. No skin sores. She is diabetic so concerned for infection.). No: Fall, Twist Where injury occurred: Home Timing - onset: How many days ago (last few days, increasing) Timing - duration: Days Timing - details: Gradual onset, Still present Worsened by: Moving (standing on leg hurts in calf/ankle.), Palpating (the calf but also anterior berg area.) Associated symptoms: Swelling. No: Weakness, Numbness, Discolored Similar symptoms before: Has not had sx before Review of Systems Constitutional: denies: Fever, Chills Nose: denies: Rhinorrhea / runny nose, Congestion Throat: denies: Sore throat Cardiac: denies: Chest pain / pressure, Palpitations Respiratory: denies: Dyspnea, Cough GI: reports: Nausea. denies: Vomiting Skin: denies: Rash, Lesions Neurologic: denies: Focal weakness, Numbness PD PAST MEDICAL HISTORY - Past Medical History Cardiovascular: Hypertension, High cholesterol, Other Respiratory: Asthma, COPD, Shortness of breath, Sleep apnea, CPAP use Neuro: None Endocrine/Autoimmune: Type 2 diabetes GI: GERD, Chronic diarrhea, Chronic constipation, Other INTERVENTIONAL PHYSICIAN: None : None HEENT: Chronic vision loss, Chronic sinusitis Psych: Depression, Anxiety, Panic attacks, Post traumatic stress disorder, Claustrophobia Musculoskeletal: Osteoarthritis, Fibromyalgia, Chronic back pain, Other Derm: Psoriasis, Rosacea - Past Surgical History Past Surgical History: Yes General: Colonoscopy, EGD, Other Ortho: Arthroscopic surgery, Spine surgery, Other /INTERVENTIONAL PHYSICIAN: Hysterectomy, Oophrectomy, 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, Other - Present Medications Home Medications: Ambulatory Orders Medication Instructions Recorded Confirmed Fenofibrate [Lofibra] 160 mg PO BID 02/24/13 12/22/20 Lansoprazole 30 mg PO DAILY 02/24/13 12/22/20 Mirtazapine [Remeron] 15 mg PO QPM 02/24/13 12/22/20 Montelukast [Singulair] 10 mg PO QPM 02/24/13 12/22/20 Prazosin HCl [Minipress] 12 mg PO DAILY PM 02/24/13 12/22/20 Naproxen [Naprosyn] 500 mg PO BID PRN #0 tablet 05/12/16 12/22/20 Calcium Carbonate/Vitamin D3 1 each PO DAILY 01/27/18 06/15/19 [Calcium 500-Vit D3 200 Tablet] Cholecalciferol [Vitamin D3] 5,000 unit PO BID 01/27/18 06/15/19 Empagliflozin [Jardiance] 10 mg PO DAILY 01/27/18 12/22/20 Fluticasone [Flonase] 2 sprays MELISSA DAILY 01/27/18 12/22/20 Lactobacillus Acidophilus 1 each PO DAILY 01/27/18 06/15/19 [Acidophilus Lactobacilli] Levalbuterol [Xopenex] 1.25 mg INH Q8HR 01/27/18 12/22/20 Losartan [Cozaar] 50 mg PO BID 01/27/18 12/22/20 Omega3/Dha/Epa/Fish Oil/Vit D3 1 each PO DAILY 01/27/18 12/22/20 [Fish Oil-Vit D3 Softgel] Triamcinolone 0.1% Oint [Kenalog 1 applic TOP BID 01/27/18 12/22/20 0.1% Oint] glipiZIDE [Glucotrol] 10 mg PO DAILY 01/27/18 12/22/20 Clotrimazole 1 gm TP TID #1 cream..g. 02/24/18 12/22/20 Tramadol HCl 100 mg PO TID 02/24/18 12/22/20 Valbenazine Tosylate [Ingrezza] 80 mg PO DAILY 02/24/18 12/22/20 Dicyclomine [Bentyl] 10 mg PO QID 07/17/18 12/22/20 Insulin Aspart Prot/Insuln Asp 24 units SUBQ BID 07/17/18 12/22/20 [Novolog Mix 70-30 Flexpen Syrn] Tizanidine HCl [Zanaflex] 4 mg PO TID 07/17/18 12/22/20 predniSONE [Deltasone] 10 mg PO [id number] #42 tab 02/22/19 06/15/19 Beclomethasone 40 Mcg [Qvar 40] 2 puffs IH BID 06/15/19 06/15/19 Buspirone HCl 30 mg PO BID 06/15/19 12/22/20 Clobetasol 0.05% Oint [Temovate 1 applic TOP BID 06/15/19 06/15/19 0.05% Oint] Ergocalciferol [Vitamin D2] 1 cap PO 06/15/19 Fexofenadine HCl [Shellie Allergy] 1 tab PO DAILY 06/15/19 12/22/20 Fluconazole 150 mg PO DAILY PRN 06/15/19 06/15/19 Gabapentin 1 cap PO TID 06/15/19 12/22/20 Insulin Glargine [Lantus Solostar] 40 units SUBQ BID 06/15/19 12/22/20 Ketorolac Tromethamine 1 - 2 ml IV DAILY 06/15/19 06/15/19 Metformin HCl [Glucophage Xr] 500 mg PO BID 06/15/19 12/22/20 PARoxetine HCL [Paroxetine HCl] 20 mg PO DAILY 06/15/19 12/22/20 Prochlorperazine [Compazine] 1 - 2 tab PO Q6HR PRN 06/15/19 06/15/19 Ramelteon 8 mg PO QPM 06/15/19 12/22/20 Trazodone HCl 50 mg PO QPM 06/15/19 12/22/20 Lorazepam [Ativan] 1 mg PO TID PRN #15 tablet 07/27/19 12/22/20 busPIRone [Buspar] 2 tab PO BID #60 tablet 07/27/19 12/22/20 Ondansetron Odt [Zofran] 4 mg TL Q6H PRN #10 tablet 12/13/20 12/22/20 traMADol [Ultram] 50 mg PO Q6H PRN 3 Days #12 tablet 12/13/20 12/22/20 Meloxicam [Mobic] 15 mg PO DAILY 12/22/20 12/22/20 Prazosin HCl [Minipress] 2 mg PO DAILY 30 Days #30 12/22/20 Amox/Clav 875/125 [Augmentin] 1 each PO Q12H #14 tablet 03/02/21 Ondansetron Odt [Zofran] 4 mg TL Q6H PRN #10 tablet 03/02/21 oxyCODONE [Roxicodone] 5 mg PO Q4-6H PRN #10 tablet 03/02/21 Benzonatate [Tessalon] 100 mg PO TID PRN #20 cap 04/21/21 dexAMETHasone [Decadron] 4 mg PO DAILY #5 tablet 04/21/21 Meclizine HCl [Motion Sickness] 25 mg PO Q6H PRN #20 tablet 09/08/21 oxyCODONE [Roxicodone] 5 mg PO Q4-6H PRN #10 tablet 09/08/21 - Allergies Allergies/Adverse Reactions: Allergies Allergy/AdvReac Type Severity Reaction Status Date / Time acetaminophen [From Tylenol] Allergy Severe Anaphylaxis Verified 09/08/21 10:28 adhesive tape Allergy Severe Swelling/Er Verified 09/08/21 10:28 ythema corn [[place]] Allergy Severe Cramps Verified 09/08/21 10:28 ibuprofen [From Motrin] Allergy Severe Anaphylaxis Verified 09/08/21 10:28 latex Allergy Severe Edema/Eryth Verified 09/08/21 10:28 cristopher tetanus toxoid, adsorbed Allergy Severe Local Verified 09/08/21 10:28 swelling/Pain theophylline Allergy Severe Anaphylaxis Verified 09/08/21 10:28 wheat Allergy Intermediate Cramps Verified 09/08/21 10:28 aripiprazole [From Abilify] Allergy Unknown Verified 09/08/21 10:28 baclofen Allergy Unknown Verified 11/05/21 10:57 benztropine Allergy Edema Verified 09/08/21 10:28 desvenlafaxine Allergy Unknown Verified 09/08/21 10:28 duloxetine Allergy Unknown Verified 09/08/21 10:28 gabapentin Allergy GI upset Verified 09/08/21 10:28 gluten Allergy GI upset Verified 09/08/21 10:28 loratadine Allergy Unknown Verified 09/08/21 10:28 spironolactone Allergy Unknown Verified 09/08/21 10:28 zolpidem Allergy Unknown Verified 09/08/21 10:28 bupropion AdvReac Depression Verified 09/08/21 10:28 lisinopril AdvReac Cough Verified 09/08/21 10:28 oats Allergy Intermediate Cramps Uncoded 09/08/21 10:28 rice Allergy Intermediate Cramps Uncoded 09/08/21 10:28 milk AdvReac Intermediate Cramps Uncoded 09/08/21 10:28 - Social History Does the pt smoke?: No Smoking Status: Never smoker Does the pt drink ETOH?: No Does the pt have substance abuse?: No - Immunizations Immunizations are current?: Yes - POLST Patient has POLST: Yes PD ED PE NORMAL - Vitals Vital signs reviewed: Yes - General General: Alert and oriented X 3, No acute distress, Well developed/nourished - Cardiac Cardiac: RRR, No murmur - Respiratory Respiratory: Clear bilaterally - Abdomen Abdomen: Normal bowel sounds, Soft, Non tender, Non distended, Other (overweight) - Derm Derm: Normal color, Warm and dry - Extremities Extremities: Other (1+ edema in both lower legs, but tenderness in anterior left lower leg and calf area. ) - Neuro Neuro: Alert and oriented X 3, No motor deficit, No sensory deficit (to touch and pinprick), Normal speech Results - Vitals Vitals: Vital Signs - 24 hr 11/05/21 10:57 Temperature 37.0 C Heart Rate 65 Respiratory 18 Rate Blood Pressure 158/80 H O2 Saturation 99 Oxygen O2 Source Room air - Labs Labs: Laboratory Tests 11/05/21 11/05/21 12:06 12:06 WBC 5.1 RBC 4.31 Hgb 11.9 L Hct 37.9 MCV 87.9 MCH 27.6 MCHC 31.4 L RDW 13.6 Plt Count 238 MPV 9.9 Neut # (Auto) 2.9 Lymph # (Auto) 1.7 Rogers # (Auto) 0.4 Eos # (Auto) 0.1 Baso # (Auto) 0.0 Absolute Nucleated RBC 0.00 Nucleated RBC % 0.0 Sodium 139 Potassium 4.2 Chloride 101 Carbon Dioxide 27 Anion Gap 11.0 BUN 21 H Creatinine 1.0 Estimated GFR (MDRD) 57 L Glucose 110 H Calcium 8.8 Total Bilirubin 0.5 AST 22 ALT 27 Alkaline Phosphatase 47 Total Creatine Kinase 153 Total Protein 6.7 Albumin 3.7 Globulin 3.0 Albumin/Globulin Ratio 1.2 Lipase 36 - Rads (name of study) duplex left leg Radiology: Prelim report reviewed (no DVT), See rad report PD MEDICAL DECISION MAKING - ED course Complexity details: reviewed results, considered differential (U/S normal. Presume then dependent edema from sitting in chair a lot. Could also have some element of lymphedema, as not entirely pitting. ), d/w patient Departure - Departure Disposition: 01 Home, Self Care Clinical Impression: Leg edema, Pain in left lower leg Condition: Stable Record reviewed to determine appropriate education?: Yes Instructions: ED Leg Swelling Unilateral Comments: Your ultrasound does not show any blood clots. Your blood test does not show any signs of obvious muscle breakdown nor electrolyte abnormalities. At this point I would assume the swelling in the leg is from dependent edema related to position of your leg, particularly when you are sitting. This can impair the return of venous blood flow and cause swelling and sometimes the lymphatic flow and cause edema as well. Use some compressive socks or wraps for the lower legs from ankle to knee to help with swelling, particularly when you are up during the day. Position well when sitting at desk/etc, so that the legs are not too bent or tight, etc. There could be perhaps some benefit from lymphatic massage of the legs periodically as well. This can be discussed or arranged perhaps through your primary care. Discharge Date/Time: 11/05/21 14:02
[2021-11-05 12:15] LABS: BASOPHILS % (AUTO) 0.4 %; EOSINOPHILS # (AUTO) 0.1 10^3/uL (0.0-0.7); EOSINOPHILS % (AUTO) 2.2 %; HCT - HEMATOCRIT 37.9 % (37.0-47.0); HGB - HEMOGLOBIN 11.9 g/dL (12.0-16.0); LYMPHOCYTES # (AUTO) 1.7 10^3/uL (1.5-3.5); LYMPHOCYTES % (AUTO) 33.5 %; MEAN CORPUSCULAR HEMOGLOBIN 27.6 pg (27.0-31.0); MEAN CORPUSCULAR HGB CONC 31.4 g/dL (32.0-36.0); MEAN CORPUSCULAR VOLUME 87.9 fL (81.0-99.0); MEAN PLATELET VOLUME 9.9 fL (7.9-10.8); MONOCYTES # (AUTO) 0.4 10^3/uL (0.0-1.0); MONOCYTES % (AUTO) 7.5 %; NEUTROPHILS # (AUTO) 2.9 10^3/uL (1.5-6.6); NEUTROPHILS % (AUTO) 56.2 %; PLT - PLATELET COUNT 238 10^3/uL (130-450); RED BLOOD COUNT 4.31 10^6/uL (4.20-5.40); RED CELL DISTRIBUTION WIDTH 13.6 % (12.0-15.0); WHITE BLOOD COUNT 5.1 x10^3/uL (4.8-10.8)
[2021-11-05 12:24] LABS: ALBUMIN 3.7 g/dL (3.2-5.5); ALBUMIN/GLOBULIN RATIO 1.2 (1.0-2.2); BILIRUBIN,TOTAL 0.5 mg/dL (0.2-1.0); CALCIUM 8.8 mg/dL (8.5-10.3); POTASSIUM 4.2 mmol/L (3.5-5.0); TOTAL PROTEIN 6.7 g/dL (6.7-8.2)
--- NOTE | 2021-11-05 13:17 | Ultrasound Report ---
PROCEDURE: Duplex Ext Veins Left INDICATIONS: left calf/leg swelling and pain for few days TECHNIQUE: Real-time imaging, as well as color and pulse Doppler interrogation, were performed of the lower extr emity deep veins from the inguinal ligament to the popliteal fossa. COMPARISON: None. FINDINGS: The deep veins are normally compressible, and free of intraluminal thrombus. Color and pu lse Doppler demonstrate normal phasic intraluminal flow. There is normal augmentation response to di stal compression maneuver. This study is limited by body habitus. IMPRESSION: No findings of deep venous thrombosis are seen. Note: Concordant preliminary findings given by the business services clerk upon the completion of the examination to Dr. Maldonado. Reviewed by: Vlad Bustamante MD on 11/05/2021 12:16 PM [facility] Approved by: Vlad Bustamante MD on 11/05/2021 12:16 PM [facility] Station ID: [id number]
== END 2021-11-05 14:02 | disposition home or self-care (01) ==
LOC: EDUNIT# → ED 10:47
DX: R60.0 Localized edema (principal); M79.605 Pain in left leg
CPT/HCPCS: 36415; 80053; 82550; 83690; 85025; 99282; 99284

== ENCOUNTER 2022-01-20 11:01 | Outpatient (CLI) | payer MEDICAID | END 2022-01-20 11:02 | disposition EMS.NT | LOC: EMS 11:01 | DX: R05.9 Cough, unspecified (principal); R52 Pain, unspecified; R06.09 Other forms of dyspnea; Z20.822 Contact with and (suspected) exposure to COVID-19 ==

== ENCOUNTER 2022-01-24 14:04 | Outpatient (CLI) | payer MEDICAID | END 2022-01-24 14:05 | disposition critical access hospital (66) | LOC: EMS 14:04 | DX: S00.11XA Contusion of right eyelid and periocular area, initial encounter (principal); W20.8XXA Other cause of strike by thrown, projected or falling object, initial encounter; Y92.003 Bedroom of unspecified non-institutional (private) residence as the place of occurrence of the external cause; U07.1 COVID-19 | CPT/HCPCS: A0425; A0429; A0999 ==

== ENCOUNTER 2022-01-24 14:18 | Emergency (ER) | payer MEDICAID ==
--- NOTE | 2022-01-24 14:20 | ED Physician Documentation ---
PD HPI HEAD INJURY - Stated complaint Stated Complaint: HEAD INJ - History obtained from History obtained from: Patient, EMS - History of Present Illness Mechanism of head injury: Blow (She states a glass pitcher that was empty fell from a shelf onto her right periorbital area while she was lying underneath the shelf. No loss of consciousness. Pain swelling and bruising on the right forehead and eyebrow area.) Timing - onset: How many hours ago (1), Today Location of injury: Right, Front Quality of pain: Throbbing, Aching Associated symptoms: Nausea / vomiting (some nausea right off, but then improved. No vomiting. Local pain at periorbital area. Has had some nose/sinus congestion for the past several days, so she attributes some pressure feeling in frontal area to that as well as today injury.). No: LOC, AMS Symptoms worsen with: Palpation Contributing factors: No: Anticoagulated, Intoxicated Similar symptoms before: Has not had sx before Recently seen: Not recently seen (did call EMS 4 days ago to be assessed oxygenation/vitals due to recent URI/cough illness and positive home COVID test. Vitals were good. Has had lessening symptoms since that time, but still congestion and some cough.) Review of Systems Constitutional: reports: Fever (1 week ago, improving without fevers the past 3 days.), Chills, Myalgias Nose: reports: Rhinorrhea / runny nose, Congestion, Sinus pressure / pain (for a week) Throat: denies: Sore throat Cardiac: denies: Chest pain / pressure Respiratory: reports: Cough. denies: Dyspnea, Wheezing Neurologic: reports: Generalized weakness. denies: Focal weakness, Confused, Altered mental status PD PAST MEDICAL HISTORY - Past Medical History Cardiovascular: Hypertension, High cholesterol, Other Respiratory: Asthma, COPD, Shortness of breath, Sleep apnea, CPAP use Neuro: None, Other (history of small meningioma along top of brain (?falx) and gets MRI brain every 6 months. 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 : None HEENT: Chronic vision loss, Chronic sinusitis Psych: Depression, Anxiety, Panic attacks, Post traumatic stress disorder, Claustrophobia Musculoskeletal: Osteoarthritis, Fibromyalgia, Chronic back pain, Other Derm: Psoriasis, Rosacea - Past Surgical History Past Surgical History: Yes General: Colonoscopy, EGD, Other Ortho: Arthroscopic surgery, Spine surgery, Other /SUPERVISOR GRINDING: Hysterectomy, Oophrectomy, 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, Other - Present Medications Home Medications: Ambulatory Orders Medication Instructions Recorded Confirmed Fenofibrate [Lofibra] 160 mg PO BID 02/24/13 12/22/20 Lansoprazole 30 mg PO DAILY 02/24/13 12/22/20 Mirtazapine [Remeron] 15 mg PO QPM 02/24/13 12/22/20 Montelukast [Singulair] 10 mg PO QPM 02/24/13 12/22/20 Prazosin HCl [Minipress] 12 mg PO DAILY PM 02/24/13 12/22/20 Naproxen [Naprosyn] 500 mg PO BID PRN #0 tablet 05/12/16 12/22/20 Calcium Carbonate/Vitamin D3 1 each PO DAILY 01/27/18 06/15/19 [Calcium 500-Vit D3 200 Tablet] Cholecalciferol [Vitamin D3] 5,000 unit PO BID 01/27/18 06/15/19 Empagliflozin [Jardiance] 10 mg PO DAILY 01/27/18 12/22/20 Fluticasone [Flonase] 2 sprays MELISSA DAILY 01/27/18 12/22/20 Lactobacillus Acidophilus 1 each PO DAILY 01/27/18 06/15/19 [Acidophilus Lactobacilli] Levalbuterol [Xopenex] 1.25 mg INH Q8HR 01/27/18 12/22/20 Losartan [Cozaar] 50 mg PO BID 01/27/18 12/22/20 Omega3/Dha/Epa/Fish Oil/Vit D3 1 each PO DAILY 01/27/18 12/22/20 [Fish Oil-Vit D3 Softgel] Triamcinolone 0.1% Oint [Kenalog 1 applic TOP BID 01/27/18 12/22/20 0.1% Oint] glipiZIDE [Glucotrol] 10 mg PO DAILY 01/27/18 12/22/20 Clotrimazole 1 gm TP TID #1 cream..g. 02/24/18 12/22/20 Tramadol HCl 100 mg PO TID 02/24/18 12/22/20 Valbenazine Tosylate [Ingrezza] 80 mg PO DAILY 02/24/18 12/22/20 Dicyclomine [Bentyl] 10 mg PO QID 07/17/18 12/22/20 Insulin Aspart Prot/Insuln Asp 24 units SUBQ BID 07/17/18 12/22/20 [Novolog Mix 70-30 Flexpen Syrn] Tizanidine HCl [Zanaflex] 4 mg PO TID 07/17/18 12/22/20 predniSONE [Deltasone] 10 mg PO [id number] #42 tab 02/22/19 06/15/19 Beclomethasone 40 Mcg [Qvar 40] 2 puffs IH BID 06/15/19 06/15/19 Buspirone HCl 30 mg PO BID 06/15/19 12/22/20 Clobetasol 0.05% Oint [Temovate 1 applic TOP BID 06/15/19 06/15/19 0.05% Oint] Ergocalciferol [Vitamin D2] 1 cap PO 06/15/19 Fexofenadine HCl [Shellie Allergy] 1 tab PO DAILY 06/15/19 12/22/20 Fluconazole 150 mg PO DAILY PRN 06/15/19 06/15/19 Gabapentin 1 cap PO TID 06/15/19 12/22/20 Insulin Glargine [Lantus Solostar] 40 units SUBQ BID 06/15/19 12/22/20 Ketorolac Tromethamine 1 - 2 ml IV DAILY 06/15/19 06/15/19 Metformin HCl [Glucophage Xr] 500 mg PO BID 06/15/19 12/22/20 PARoxetine HCL [Paroxetine HCl] 20 mg PO DAILY 06/15/19 12/22/20 Prochlorperazine [Compazine] 1 - 2 tab PO Q6HR PRN 06/15/19 06/15/19 Ramelteon 8 mg PO QPM 06/15/19 12/22/20 Trazodone HCl 50 mg PO QPM 06/15/19 12/22/20 Lorazepam [Ativan] 1 mg PO TID PRN #15 tablet 07/27/19 12/22/20 busPIRone [Buspar] 2 tab PO BID #60 tablet 07/27/19 12/22/20 Ondansetron Odt [Zofran] 4 mg TL Q6H PRN #10 tablet 05/25/21 06/03/21 traMADol [Ultram] 50 mg PO Q6H PRN 3 Days #12 tablet 12/13/20 12/22/20 Meloxicam [Mobic] 15 mg PO DAILY 12/22/20 12/22/20 Prazosin HCl [Minipress] 2 mg PO DAILY 30 Days #30 12/22/20 Amox/Clav 875/125 [Augmentin] 1 each PO Q12H #14 tablet 03/02/21 Ondansetron Odt [Zofran] 4 mg TL Q6H PRN #10 tablet 03/02/21 oxyCODONE [Roxicodone] 5 mg PO Q4-6H PRN #10 tablet 03/02/21 Benzonatate [Tessalon] 100 mg PO TID PRN #20 cap 04/21/21 dexAMETHasone [Decadron] 4 mg PO DAILY #5 tablet 04/21/21 Meclizine HCl [Motion Sickness] 25 mg PO Q6H PRN #20 tablet 09/08/21 oxyCODONE [Roxicodone] 5 mg PO Q4-6H PRN #10 tablet 09/08/21 - Allergies Allergies/Adverse Reactions: Allergies Allergy/AdvReac Type Severity Reaction Status Date / Time acetaminophen [From Tylenol] Allergy Severe Anaphylaxis Verified 01/24/22 14:57 adhesive tape Allergy Severe Swelling/Er Verified 01/24/22 14:57 ythema corn [Barton] Allergy Severe Cramps Verified 01/24/22 14:57 ibuprofen [From Motrin] Allergy Severe Anaphylaxis Verified 01/24/22 14:57 latex Allergy Severe Edema/Eryth Verified 01/24/22 14:57 cristopher tetanus toxoid, adsorbed Allergy Severe Local Verified 01/24/22 14:57 swelling/Pain theophylline Allergy Severe Anaphylaxis Verified 01/24/22 14:57 wheat Allergy Intermediate Cramps Verified 01/24/22 14:57 aripiprazole [From Abilify] Allergy Unknown Verified 01/24/22 14:57 baclofen Allergy Unknown Verified 01/24/22 14:57 benztropine Allergy Edema Verified 01/24/22 14:57 desvenlafaxine Allergy Unknown Verified 01/24/22 14:57 duloxetine Allergy Unknown Verified 01/24/22 14:57 gabapentin Allergy GI upset Verified 01/24/22 14:57 gluten Allergy GI upset Verified 01/24/22 14:57 loratadine Allergy Unknown Verified 01/24/22 14:57 spironolactone Allergy Unknown Verified 01/24/22 14:57 zolpidem Allergy Unknown Verified 01/24/22 14:57 bupropion AdvReac Depression Verified 01/24/22 14:57 lisinopril AdvReac Cough Verified 01/24/22 14:57 oats Allergy Intermediate Cramps Uncoded 01/24/22 14:57 rice Allergy Intermediate Cramps Uncoded 01/24/22 14:57 milk AdvReac Intermediate Cramps Uncoded 01/24/22 14:57 - Social History Does the pt smoke?: No Smoking Status: Never smoker Does the pt drink ETOH?: No Does the pt have substance abuse?: No - Immunizations Immunizations are current?: Yes - POLST Patient has POLST: Yes PD ED PE NORMAL - Vitals Vital signs reviewed: Yes - General General: Alert and oriented X 3, No acute distress, Well developed/nourished - HEENT HEENT: PERRL, EOMI, Other (right supraorbital area and lateral eyebrow with local swelling and purple ecchymosis. No lacerations. Eye movement without pain. ) - Neck Neck: Supple, no meningeal sign, No bony TTP, No adenopathy - Cardiac Cardiac: RRR, No murmur - Respiratory Respiratory: No respiratory distress, Clear bilaterally - Abdomen Abdomen: Soft, Non tender - Derm Derm: Normal color, Warm and dry, No rash - Extremities Extremities: Normal ROM s pain - Neuro Neuro: Alert and oriented X 3, No motor deficit, No sensory deficit, Normal speech Results - Vitals Vitals: Vital Signs - 24 hr 01/24/22 01/24/22 14:25 16:28 Heart Rate 75 72 Respiratory 16 18 Rate Blood Pressure 164/71 H 178/71 H O2 Saturation 97 98 Oxygen O2 Source Room air - Rads (name of study) head CT Radiology: Prelim report reviewed (no ICH. No fractures. Mild sinusitis in ethmoidal and maxillary sinuses. No orbital fractures. ), See rad report chest xray Radiology: Prelim report reviewed (no infiltrates. ), See rad report PD MEDICAL DECISION MAKING - ED course Complexity details: reviewed results, considered differential (heavy glass pitcher fell from shelf about 2 feet above onto her face, with swelling and bruising. Mild nausea initially. Has had recent COVID for past week, with positive home test 4 days ago. Has cough but not dyspnea per se. Can check CxR. Also to check CT head to ensure no fractures/ICH. ), d/w patient Departure - Departure Disposition: 01 Home, Self Care Clinical Impression: Upper respiratory tract infection due to COVID-19 virus Periorbital contusion Qualifiers: Encounter type: initial encounter Laterality: right Qualified Code(s): S05.11XA - Contusion of eyeball and orbital tissues, right eye, initial encounter Clinical Impression: (Ruled Out): Intracranial hemorrhage Condition: Stable Record reviewed to determine appropriate education?: Yes Instructions: ED Contusion Face Follow-Up: YASH JAQUEZ DO [Primary Care Provider] - Comments: Your CT scan of the head does not show any intracranial bleeding, localized swelling or fractures. They do see some mild inflammation through the sinuses consistent with your recent viral illness. No signs of orbital fractures. Continue with usual medications. Ice to cool towels to the bruised and swollen area to help with swelling. Add Tylenol every 4-6 hours if needed for pains. Your chest x-ray is clear without any signs of pneumonia. Discharge Date/Time: 01/24/22 16:32
--- NOTE | 2022-01-24 15:06 | XRAY Report ---
PROCEDURE: Chest 1 View X-Ray INDICATIONS: cough for a week; covid positive 1 wk ago TECHNIQUE: One view of the chest was acquired. COMPARISON: 04/21/2021 FINDINGS: Surgical changes and devices: Surgical hardware in lower cervical spine is again seen.. Lungs and pleura: No pleural effusions or pneumothorax. Lungs are clear. Mediastinum: Mediastinal contours appear normal. Heart size is normal. Bones and chest wall: No suspicious bony lesions. Overlying soft tissues appear unremarkable. IMPRESSION: No focal infiltrate, pleural effusion or pneumothorax. Reviewed by: Herman Almonte MD on 01/24/2022 3:05 PM PDT Approved by: Herman Almonte MD on 01/24/2022 3:05 PM PDT Station ID: [id number]
--- NOTE | 2022-01-24 15:34 | CT Report ---
PROCEDURE: HEAD WO INDICATIONS: object struck right periorbital; has headache TECHNIQUE: Noncontrast 4.5 mm thick angled axial sections acquired from the foramen magnum to the vertex. For r adiation dose reduction, the following was used: automated exposure control, adjustment of mA and/or kV according to patient size. COMPARISON: 09/08/2021 FINDINGS: Image quality: Excellent. CSF spaces: Basal cisterns are patent. No extra-axial fluid collections. The ventricles are symmet liliana in size and shape. Brain: No intracranial bleeds or masses. There is cerebral volume loss for age, with resultant vent ricular and sulcal prominence. There are periventricular and deep white matter chronic small vessel ischemic changes. There is intracranial internal carotid artery atherosclerosis. Skull and face: Calvarium and visualized facial bones appear intact, without suspicious lesions. Sinuses: Mild mucosal thickening in bilateral ethmoid sinuses and maxillary sinuses are seen. Bilater al mastoids are well aerated. IMPRESSION: No CT evidence of acute intracranial abnormalities. No acute skull fracture. Bilateral orbital pike are intact. Suggestion of mild bilateral ethmoid and maxillary sinusitis. Reviewed by: Herman Almonte MD on 01/24/2022 3:33 PM PDT Approved by: Herman Almonte MD on 01/24/2022 3:33 PM PDT Station ID: [id number]
[2022-01-24] MEDS ORDERED: KETOROLAC 30 MG/ML VIAL IM STA (15:54)
[2022-01-24] MEDS ORDERED: ONDANSETRON 4 MG/2 ML VIAL IM STA (15:54)
[2022-01-24 16:28] VITALS: BP 178/71
== END 2022-01-24 16:32 | disposition home or self-care (01) ==
LOC: EDUNIT# → ED 14:18
DX: U07.1 COVID-19 (principal); J06.9 Acute upper respiratory infection, unspecified; B97.29 Other coronavirus as the cause of diseases classified elsewhere; I10 Essential (primary) hypertension; E11.9 Type 2 diabetes mellitus without complications; Z79.4 Long term (current) use of insulin
CPT/HCPCS: 96372; 99282; 99284

== ENCOUNTER 2022-03-19 22:01 | Outpatient (CLI) | payer MEDICAID | END 2022-03-19 22:02 | disposition critical access hospital (66) | LOC: EMS 22:01 | DX: R51.9 Headache, unspecified (principal); M54.2 Cervicalgia; R55 Syncope and collapse; W18.39XA Other fall on same level, initial encounter; Y92.092 Bedroom in other non-institutional residence as the place of occurrence of the external cause | CPT/HCPCS: A0425; A0427; A0999 ==

== ENCOUNTER 2022-03-19 22:18 | Emergency (ER) | payer MEDICAID ==
[2022-03-19] MEDS ORDERED: SODIUM CHLORIDE 0.9% 1,000 ML IV STA (22:27)
[2022-03-19 22:42] LABS: BASOPHILS % (AUTO) 0.4 %; EOSINOPHILS # (AUTO) 0.3 10^3/uL (0.0-0.7); HGB - HEMOGLOBIN 11.2 g/dL (12.0-16.0); LYMPHOCYTES % (AUTO) 32.7 %; MEAN CORPUSCULAR HEMOGLOBIN 27.1 pg (27.0-31.0); MEAN CORPUSCULAR VOLUME 84.5 fL (81.0-99.0); MEAN PLATELET VOLUME 10.1 fL (7.9-10.8); MONOCYTES # (AUTO) 0.7 10^3/uL (0.0-1.0); NEUTROPHILS # (AUTO) 5.2 10^3/uL (1.5-6.6); NEUTROPHILS % (AUTO) 56.3 %; PLT - PLATELET COUNT 278 10^3/uL (130-450); RED BLOOD COUNT 4.14 10^6/uL (4.20-5.40); WHITE BLOOD COUNT 9.2 x10^3/uL (4.8-10.8)
[2022-03-19 22:56] LABS: ALBUMIN 3.4 g/dL (3.2-5.5); ALBUMIN/GLOBULIN RATIO 1.4 (1.0-2.2); BILIRUBIN,TOTAL 0.5 mg/dL (0.2-1.0); CALCIUM 8.6 mg/dL (8.5-10.3); CREATININE 1.1 mg/dL (0.4-1.0); POTASSIUM 3.4 mmol/L (3.5-5.0); TOTAL PROTEIN 5.9 g/dL (6.7-8.2)
--- NOTE | 2022-03-19 23:58 | CT Report ---
PROCEDURE: HEAD WO INDICATIONS: fall/head injury TECHNIQUE: Noncontrast 4.5 mm thick angled axial sections acquired from the foramen magnum to the vertex. For r adiation dose reduction, the following was used: automated exposure control, adjustment of mA and/or kV according to patient size. COMPARISON: CT head 01/24/2022. FINDINGS: Image quality: There is mild motion artifact slightly limiting evaluation. CSF spaces: There is mild cerebral volume loss with prominence of the ventricles and sulci. Basal ci sterns are patent. No extra-axial fluid collections. Brain: No intracranial hemorrhage, mass, or mass effect. Springer-white matter interface is preserved. Skull and face: Calvarium and visualized facial bones are intact, without suspicious lesions. Sinuses: Visualized sinuses and mastoids are clear. IMPRESSION: 1. No acute intracranial abnormality. Reviewed by: Abel Forman MD on 03/19/2022 11:57 PM PDT Approved by: Abel Forman MD on 03/19/2022 11:57 PM PDT Station ID: [id number]
--- NOTE | 2022-03-20 | CT Report ---
PROCEDURE: CERVICAL SPINE WO INDICATIONS: fall/head injury/neck pain TECHNIQUE: Noncontrast 3 mm thick sections acquired from the skull base to the T4 level. Sagittal and coronal r eformats were then constructed. For radiation dose reduction, the following was used: automated exp osure control, adjustment of mA and/or kV according to patient size. COMPARISON: CT cervical spine 09/08/2021. FINDINGS: Image quality: There is metallic streak artifact from patient's surgical hardware in the spine. Bones: No definite fracture or subluxation. There are postsurgical changes status post posterior fix ation and fusion at C4-C7 with posterior laminectomies and bilateral pedicle screws. Visualized super ior ribs are intact. Soft tissues: Prevertebral soft tissues are normal in thickness. No paravertebral hematomas. No ap ical pneumothoraces. IMPRESSION: 1. No definite acute fracture or subluxation. 2. Postsurgical changes redemonstrated status post posterior fixation and fusion at C4-C7. Reviewed by: Abel Forman MD on 03/19/2022 11:59 PM PDT Approved by: Abel Forman MD on 03/19/2022 11:59 PM PDT Station ID: [id number]
--- NOTE | 2022-03-20 00:36 | ED Physician Documentation ---
PD HPI SYNCOPE - Stated complaint Stated Complaint: SYNCOPE, HEAD AND NECK PAIN - Chief complaint Chief Complaint: Neuro - History obtained from History obtained from: Patient, EMS - Additional information Additional information: The patient is brought to the emergency department by EMS for chief complaint of near syncopal episode and closed head injury. The patient states that she sometimes feels lightheaded after taking her medications and that this happened tonight. She walked into her bedroom and was near the bed when she suddenly felt as though she was going to faint. She lost her balance and fell, hitting her head against the corner over the [place]. The patient remembers completing the fall after that. She did not fully lose consciousness at any time. She denies any spinal pain. She has a pain in the right posterior lateral aspect of her head. No extremity pain. No abdominal pain or chest pain. The patient did not have any palpitations or chest pain prior to the near syncopal episode. She has felt like her normal self more or less since. Review of Systems Ten Systems: 10 systems reviewed and negative Constitutional: reports: Reviewed and negative Eyes: reports: Reviewed and negative Ears: reports: Reviewed and negative Nose: reports: Reviewed and negative Throat: reports: Reviewed and negative Cardiac: reports: Reviewed and negative Respiratory: reports: Reviewed and negative GI: reports: Reviewed and negative : reports: Reviewed and negative Skin: reports: Reviewed and negative Musculoskeletal: reports: Reviewed and negative Neurologic: reports: Head injury Psychiatric: reports: Reviewed and negative Endocrine: reports: Reviewed and negative Immunocompromised: reports: Reviewed and negative PD PAST MEDICAL HISTORY - Past Medical History Past Medical History: Yes Cardiovascular: Hypertension, High cholesterol, Other Respiratory: Asthma, COPD, Shortness of breath, Sleep apnea, CPAP use Neuro: None, Other Endocrine/Autoimmune: Type 2 diabetes GI: GERD, Chronic diarrhea, Chronic constipation, Other ACADEMIC AFFAIRS DEAN: None : None HEENT: Chronic vision loss, Chronic sinusitis Psych: Depression, Anxiety, Panic attacks, Post traumatic stress disorder, Claustrophobia Musculoskeletal: Osteoarthritis, Fibromyalgia, Chronic back pain, Other Derm: Psoriasis, Rosacea - Past Surgical History Past Surgical History: Yes General: Colonoscopy, EGD, Other Ortho: Arthroscopic surgery, Spine surgery, Other /ACADEMIC AFFAIRS DEAN: Hysterectomy, Oophrectomy, 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, Other - Present Medications Home Medications: Ambulatory Orders Medication Instructions Recorded Confirmed Fenofibrate [Lofibra] 160 mg PO BID 02/24/13 12/22/20 Lansoprazole 30 mg PO DAILY 02/24/13 12/22/20 Mirtazapine [Remeron] 15 mg PO QPM 02/24/13 12/22/20 Montelukast [Singulair] 10 mg PO QPM 02/24/13 12/22/20 Prazosin HCl [Minipress] 12 mg PO DAILY PM 02/24/13 12/22/20 Naproxen [Naprosyn] 500 mg PO BID PRN #0 tablet 05/12/16 12/22/20 Calcium Carbonate/Vitamin D3 1 each PO DAILY 01/27/18 06/15/19 [Calcium 500-Vit D3 200 Tablet] Cholecalciferol [Vitamin D3] 5,000 unit PO BID 01/27/18 06/15/19 Empagliflozin [Jardiance] 10 mg PO DAILY 01/27/18 12/22/20 Fluticasone [Flonase] 2 sprays MELISSA DAILY 01/27/18 12/22/20 Lactobacillus Acidophilus 1 each PO DAILY 01/27/18 06/15/19 [Acidophilus Lactobacilli] Levalbuterol [Xopenex] 1.25 mg INH Q8HR 01/27/18 12/22/20 Losartan [Cozaar] 50 mg PO BID 01/27/18 12/22/20 Omega3/Dha/Epa/Fish Oil/Vit D3 1 each PO DAILY 01/27/18 12/22/20 [Fish Oil-Vit D3 Softgel] Triamcinolone 0.1% Oint [Kenalog 1 applic TOP BID 01/27/18 12/22/20 0.1% Oint] glipiZIDE [Glucotrol] 10 mg PO DAILY 01/27/18 12/22/20 Clotrimazole 1 gm TP TID #1 cream..g. 02/24/18 12/22/20 Tramadol HCl 100 mg PO TID 02/24/18 12/22/20 Valbenazine Tosylate [Ingrezza] 80 mg PO DAILY 02/24/18 12/22/20 Dicyclomine [Bentyl] 10 mg PO QID 07/17/18 12/22/20 Insulin Aspart Prot/Insuln Asp 24 units SUBQ BID 07/17/18 12/22/20 [Novolog Mix 70-30 Flexpen Syrn] Tizanidine HCl [Zanaflex] 4 mg PO TID 07/17/18 12/22/20 predniSONE [Deltasone] 10 mg PO [id number] #42 tab 02/22/19 06/15/19 Beclomethasone 40 Mcg [Qvar 40] 2 puffs IH BID 06/15/19 06/15/19 Buspirone HCl 30 mg PO BID 06/15/19 12/22/20 Clobetasol 0.05% Oint [Temovate 1 applic TOP BID 06/15/19 06/15/19 0.05% Oint] Ergocalciferol [Vitamin D2] 1 cap PO 06/15/19 Fexofenadine HCl [Shellie Allergy] 1 tab PO DAILY 06/15/19 12/22/20 Fluconazole 150 mg PO DAILY PRN 06/15/19 06/15/19 Gabapentin 1 cap PO TID 06/15/19 12/22/20 Insulin Glargine [Lantus Solostar] 40 units SUBQ BID 06/15/19 12/22/20 Ketorolac Tromethamine 1 - 2 ml IV DAILY 06/15/19 06/15/19 Metformin HCl [Glucophage Xr] 500 mg PO BID 06/15/19 12/22/20 PARoxetine HCL [Paroxetine HCl] 20 mg PO DAILY 06/15/19 12/22/20 Prochlorperazine [Compazine] 1 - 2 tab PO Q6HR PRN 06/15/19 06/15/19 Ramelteon 8 mg PO QPM 06/15/19 12/22/20 Trazodone HCl 50 mg PO QPM 06/15/19 12/22/20 Lorazepam [Ativan] 1 mg PO TID PRN #15 tablet 07/27/19 12/22/20 busPIRone [Buspar] 2 tab PO BID #60 tablet 07/27/19 12/22/20 Ondansetron Odt [Zofran] 4 mg TL Q6H PRN #10 tablet 12/13/20 12/22/20 traMADol [Ultram] 50 mg PO Q6H PRN 3 Days #12 tablet 12/13/20 12/22/20 Meloxicam [Mobic] 15 mg PO DAILY 12/22/20 12/22/20 Prazosin HCl [Minipress] 2 mg PO DAILY 30 Days #30 12/22/20 Amox/Clav 875/125 [Augmentin] 1 each PO Q12H #14 tablet 03/02/21 Ondansetron Odt [Zofran] 4 mg TL Q6H PRN #10 tablet 03/02/21 oxyCODONE [Roxicodone] 5 mg PO Q4-6H PRN #10 tablet 03/02/21 Benzonatate [Tessalon] 100 mg PO TID PRN #20 cap 04/21/21 dexAMETHasone [Decadron] 4 mg PO DAILY #5 tablet 04/21/21 Meclizine HCl [Motion Sickness] 25 mg PO Q6H PRN #20 tablet 09/08/21 oxyCODONE [Roxicodone] 5 mg PO Q4-6H PRN #10 tablet 09/08/21 - Allergies Allergies/Adverse Reactions: Allergies Allergy/AdvReac Type Severity Reaction Status Date / Time acetaminophen [From Tylenol] Allergy Severe Anaphylaxis Verified 03/19/22 22:25 adhesive tape Allergy Severe Swelling/Er Verified 03/19/22 22:25 ythema corn [[place]] Allergy Severe Cramps Verified 03/19/22 22:25 ibuprofen [From Motrin] Allergy Severe Anaphylaxis Verified 03/19/22 22:25 latex Allergy Severe Edema/Eryth Verified 03/19/22 22:25 cristopher tetanus toxoid, adsorbed Allergy Severe Local Verified 03/19/22 22:25 swelling/Pain theophylline Allergy Severe Anaphylaxis Verified 03/19/22 22:25 wheat Allergy Intermediate Cramps Verified 03/19/22 22:25 aripiprazole [From Abilify] Allergy Unknown Verified 03/19/22 22:25 baclofen Allergy Unknown Verified 03/19/22 22:25 benztropine Allergy Edema Verified 03/19/22 22:25 desvenlafaxine Allergy Unknown Verified 03/19/22 22:25 duloxetine Allergy Unknown Verified 03/19/22 22:25 gabapentin Allergy GI upset Verified 03/19/22 22:25 gluten Allergy GI upset Verified 03/19/22 22:25 loratadine Allergy Unknown Verified 03/19/22 22:25 spironolactone Allergy Unknown Verified 03/19/22 22:25 zolpidem Allergy Unknown Verified 03/19/22 22:25 bupropion AdvReac Depression Verified 03/19/22 22:25 lisinopril AdvReac Cough Verified 03/19/22 22:25 oats Allergy Intermediate Cramps Uncoded 03/19/22 22:25 rice Allergy Intermediate Cramps Uncoded 03/19/22 22:25 milk AdvReac Intermediate Cramps Uncoded 03/19/22 22:25 - Social History Does the pt smoke?: No Smoking Status: Never smoker Does the pt drink ETOH?: No Does the pt have substance abuse?: No - Immunizations Immunizations are current?: Yes - POLST Patient has POLST: Yes PD ED PE NORMAL - Vitals Vital signs reviewed: Yes - General General: Alert and oriented X 3, No acute distress, Well developed/nourished - HEENT HEENT: PERRL, EOMI, Moist mucous membranes, Other (Tenderness over the right Lateral occipital area without edema or deformity.) - Neck Neck: Supple, no meningeal sign, No bony TTP - Cardiac Cardiac: RRR, No murmur - Respiratory Respiratory: No respiratory distress, Clear bilaterally - Abdomen Abdomen: Soft, Non tender, Non distended - Back Back: No spinal TTP - Derm Derm: Normal color, Warm and dry, No rash - Extremities Extremities: No deformity, No edema, Other - Neuro Neuro: Alert and oriented X 3 - Psych Psych: Normal mood, Normal affect Results - Vitals Vitals: Vital Signs - 24 hr 03/19/22 03/19/22 03/19/22 22:25 22:37 22:57 Temperature 36.3 C L Heart Rate 67 65 64 Respiratory 18 16 19 Rate Blood Pressure 99/80 84/37 L 94/53 L O2 Saturation 88 L 94 98 03/19/22 03/20/22 03/20/22 23:24 00:00 00:30 Temperature Heart Rate 63 63 64 Respiratory 19 18 18 Rate Blood Pressure 97/60 111/53 L 104/86 H O2 Saturation 99 98 100 03/20/22 03/20/22 03/20/22 00:52 01:00 01:08 Temperature 36.4 C L Heart Rate 115 H 67 65 Respiratory 19 18 18 Rate Blood Pressure 130/99 H 106/55 L 106/55 L O2 Saturation 92 97 96 Oxygen O2 Source Room air Oxygen Flow Rate 4 - Labs Labs: Laboratory Tests 03/19/22 03/19/22 22:36 22:36 WBC 9.2 RBC 4.14 L Hgb 11.2 L Hct 35.0 L MCV 84.5 MCH 27.1 MCHC 32.0 RDW 15.0 Plt Count 278 MPV 10.1 Neut # (Auto) 5.2 Lymph # (Auto) 3.0 [place] # (Auto) 0.7 Eos # (Auto) 0.3 Baso # (Auto) 0.0 Absolute Nucleated RBC 0.00 Nucleated RBC % 0.0 Sodium 141 Potassium 3.4 L Chloride 105 Carbon Dioxide 25 Anion Gap 11.0 BUN 24 H Creatinine 1.1 H Estimated GFR (MDRD) 51 L Glucose 183 H Calcium 8.6 Total Bilirubin 0.5 AST 15 ALT 17 Alkaline Phosphatase 57 Total Protein 5.9 L Albumin 3.4 Globulin 2.5 Albumin/Globulin Ratio 1.4 Lipase 36 - Rads (name of study) CT head Radiology: Final report received, EMP read indepedently, See rad report (Unremarkable) CT C-spine Radiology: Final report received, EMP read indepedently, See rad report (Unremarkable) PD MEDICAL DECISION MAKING - ED course Complexity details: reviewed results, re-evaluated patient, considered differential, d/w patient ED course: The patient was evaluated upon arrival in the emergency department by myself and was worked up with laboratory studies and CTs of the head and neck, as well as EKG. The patient's work-up was unremarkable. I felt she was stable for discharge home. She was completely asymptomatic at the time of presentation to the emergency department and had experienced the symptoms before. We have discussed the need for follow-up and the usual indications For return. Departure - Departure Disposition: 01 Home, Self Care Clinical Impression: Near syncope Closed head injury Qualifiers: Encounter type: initial encounter Qualified Code(s): S09.90XA - Unspecified injury of head, initial encounter Condition: Stable Instructions: ED Head Injury Closed, ED Near Syncope Unkn Comments: Your labs look fairly good. Your CTs of the head and neck show no acute trauma. Please follow-up with your primary doctor if needed. Be sure you drink plenty of fluids at home. Discharge Date/Time: 03/20/22 01:32
[2022-03-20 01:08] VITALS: BP 106/55
== END 2022-03-20 01:32 | disposition home or self-care (01) ==
LOC: EDUNIT# → ED 22:18
DX: S09.90XA Unspecified injury of head, initial encounter (principal); W18.30XA Fall on same level, unspecified, initial encounter; Y92.003 Bedroom of unspecified non-institutional (private) residence as the place of occurrence of the external cause; I10 Essential (primary) hypertension; E11.9 Type 2 diabetes mellitus without complications; Z79.84 Long term (current) use of oral hypoglycemic drugs
CPT/HCPCS: 36415; 80053; 83690; 85025; 93005; 99282; 99284

== ENCOUNTER 2022-12-12 05:38 | Outpatient (CLI) | payer MEDICAID | END 2022-12-12 23:59 | disposition EMS.NT | LOC: EMS 05:38 | DX: Z03.89 Encounter for observation for other suspected diseases and conditions ruled out (principal) ==

== ENCOUNTER 2023-07-24 11:02 | Emergency (ER) | payer MEDICAID ==
--- NOTE | 2023-07-24 15:35 | ED Physician Documentation ---
PD HPI BACK PAIN - Stated complaint Stated Complaint: SPINAL PX SENT BY PCP - Chief complaint Chief Complaint: Back Pain - History obtained from History obtained from: Patient - History of Present Illness Timing - onset: How many weeks ago (3) Timing - duration: Weeks (3) Timing - details: Gradual onset (The patient does have chronic low back pain. She has noticed an increase in it over the last 3 weeks and is noticing incontinence of urine with frequency as well. No dysuria per se. She states she did have some loose stool several days ago that was watery but since firmed up. No leg weak/numb.), Still present Location: Lower Quality: Pain, Aching Associated symptoms: Incontinent of urine. No: Fever, Weakness, Numbness Worsened by: Movement Contributing factors: No: Lifting, Trauma Recently seen: Clinic (She did talk with her neurosurgeon who is trying to arrange an open MRI as the patient is extremely claustrophobic. Pending that the patient states her back surgeon referred her to the ER for initial evaluation.) PD PAST MEDICAL HISTORY - Past Medical History Past Medical History: Yes Cardiovascular: Hypertension, High cholesterol, Other Respiratory: Asthma, COPD, Shortness of breath, Sleep apnea, CPAP use Neuro: None, Other Endocrine/Autoimmune: Type 2 diabetes GI: GERD, Chronic diarrhea, Chronic constipation, Other ALUMINUM POURER: None : None HEENT: Chronic vision loss, Chronic sinusitis Psych: Depression, Anxiety, Panic attacks, Post traumatic stress disorder, Claustrophobia Musculoskeletal: Osteoarthritis, Fibromyalgia, Chronic back pain, Other Derm: Psoriasis, Rosacea - Past Surgical History Past Surgical History: Yes General: Colonoscopy, EGD, Other Ortho: Arthroscopic surgery, Spine surgery, Other /ALUMINUM POURER: Hysterectomy, Oophrectomy, 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, Other - Present Medications Home Medications: Ambulatory Orders Medication Instructions Recorded Confirmed Fenofibrate [Lofibra] 160 mg PO BID 02/24/13 12/22/20 Lansoprazole 30 mg PO DAILY 02/24/13 12/22/20 Mirtazapine [Remeron] 15 mg PO QPM 02/24/13 12/22/20 Montelukast [Singulair] 10 mg PO QPM 02/24/13 12/22/20 Prazosin HCl [Minipress] 12 mg PO DAILY PM 02/24/13 12/22/20 Naproxen [Naprosyn] 500 mg PO BID PRN #0 tablet 05/12/16 12/22/20 Calcium Carbonate/Vitamin D3 1 each PO DAILY 01/27/18 06/15/19 [Calcium 500-Vit D3 200 Tablet] Cholecalciferol [Vitamin D3] 5,000 unit PO BID 01/27/18 06/15/19 Empagliflozin [Jardiance] 10 mg PO DAILY 01/27/18 12/22/20 Fluticasone [Flonase] 2 sprays MELISSA DAILY 01/27/18 12/22/20 Lactobacillus Acidophilus 1 each PO DAILY 01/27/18 06/15/19 [Acidophilus Lactobacilli] Levalbuterol [Xopenex] 1.25 mg INH Q8HR 01/27/18 12/22/20 Losartan [Cozaar] 50 mg PO BID 01/27/18 12/22/20 Omega3/Dha/Epa/Fish Oil/Vit D3 1 each PO DAILY 01/27/18 12/22/20 [Fish Oil-Vit D3 Softgel] Triamcinolone 0.1% Oint [Kenalog 1 applic TOP BID 01/27/18 12/22/20 0.1% Oint] glipiZIDE [Glucotrol] 10 mg PO DAILY 01/27/18 12/22/20 Clotrimazole 1 gm TP TID #1 cream..g. 02/24/18 12/22/20 Tramadol HCl 100 mg PO TID 02/24/18 12/22/20 Valbenazine Tosylate [Ingrezza] 80 mg PO DAILY 02/24/18 12/22/20 Dicyclomine [Bentyl] 10 mg PO QID 07/17/18 12/22/20 Insulin Aspart Prot/Insuln Asp 24 units SUBQ BID 07/17/18 12/22/20 [Novolog Mix 70-30 Flexpen Syrn] Tizanidine HCl [Zanaflex] 4 mg PO TID 07/17/18 12/22/20 predniSONE [Deltasone] 10 mg PO [id number] #42 tab 02/22/19 06/15/19 Beclomethasone 40 Mcg [Qvar 40] 2 puffs IH BID 06/15/19 06/15/19 Buspirone HCl 30 mg PO BID 06/15/19 12/22/20 Clobetasol 0.05% Oint [Temovate 1 applic TOP BID 06/15/19 06/15/19 0.05% Oint] Ergocalciferol [Vitamin D2] 1 cap PO 06/15/19 Fexofenadine HCl [Shellie Allergy] 1 tab PO DAILY 06/15/19 12/22/20 Fluconazole 150 mg PO DAILY PRN 06/15/19 06/15/19 Gabapentin 1 cap PO TID 06/15/19 12/22/20 Insulin Glargine [Lantus Solostar] 40 units SUBQ BID 06/15/19 12/22/20 Ketorolac Tromethamine 1 - 2 ml IV DAILY 06/15/19 06/15/19 Metformin HCl [Glucophage Xr] 500 mg PO BID 06/15/19 12/22/20 PARoxetine HCL [Paroxetine HCl] 20 mg PO DAILY 06/15/19 12/22/20 Prochlorperazine [Compazine] 1 - 2 tab PO Q6HR PRN 06/15/19 06/15/19 Ramelteon 8 mg PO QPM 06/15/19 12/22/20 Trazodone HCl 50 mg PO QPM 06/15/19 12/22/20 Lorazepam [Ativan] 1 mg PO TID PRN #15 tablet 07/27/19 12/22/20 busPIRone [Buspar] 2 tab PO BID #60 tablet 07/27/19 12/22/20 Ondansetron Odt [Zofran] 4 mg TL Q6H PRN #10 tablet 12/13/20 12/22/20 traMADol [Ultram] 50 mg PO Q6H PRN 3 Days #12 tablet 12/13/20 12/22/20 Meloxicam [Mobic] 15 mg PO DAILY 12/22/20 12/22/20 Prazosin HCl [Minipress] 2 mg PO DAILY 30 Days #30 12/22/20 Amox/Clav 875/125 [Augmentin] 1 each PO Q12H #14 tablet 03/02/21 Ondansetron Odt [Zofran] 4 mg TL Q6H PRN #10 tablet 03/02/21 oxyCODONE [Roxicodone] 5 mg PO Q4-6H PRN #10 tablet 03/02/21 Benzonatate [Tessalon] 100 mg PO TID PRN #20 cap 04/21/21 dexAMETHasone [Decadron] 4 mg PO DAILY #5 tablet 04/21/21 Meclizine HCl [Motion Sickness] 25 mg PO Q6H PRN #20 tablet 09/08/21 oxyCODONE [Roxicodone] 5 mg PO Q4-6H PRN #10 tablet 09/08/21 dexAMETHasone [Decadron] 4 mg PO DAILY #7 tablet 07/24/23 - Allergies Allergies/Adverse Reactions: Allergies Allergy/AdvReac Type Severity Reaction Status Date / Time acetaminophen [From Tylenol] Allergy Severe Anaphylaxis Verified 07/24/23 11:45 adhesive tape Allergy Severe Swelling/Er Verified 07/24/23 11:45 ythema corn [[place]] Allergy Severe Cramps Verified 07/24/23 11:45 ibuprofen [From Motrin] Allergy Severe Anaphylaxis Verified 07/24/23 11:45 latex Allergy Severe Edema/Eryth Verified 07/24/23 11:45 cristopher tetanus toxoid, adsorbed Allergy Severe Local Verified 07/24/23 11:45 swelling/Pain theophylline Allergy Severe Anaphylaxis Verified 07/24/23 11:45 wheat Allergy Intermediate Cramps Verified 07/24/23 11:45 aripiprazole [From Abilify] Allergy Unknown Verified 07/24/23 11:45 baclofen Allergy Unknown Verified 07/24/23 11:45 benztropine Allergy Edema Verified 07/24/23 11:45 desvenlafaxine Allergy Unknown Verified 07/24/23 11:45 duloxetine Allergy Unknown Verified 07/24/23 11:45 gabapentin Allergy GI upset Verified 07/24/23 11:45 gluten Allergy GI upset Verified 07/24/23 11:45 loratadine Allergy Unknown Verified 07/24/23 11:45 spironolactone Allergy Unknown Verified 07/24/23 11:45 zolpidem Allergy Unknown Verified 07/24/23 11:45 bupropion AdvReac Depression Verified 07/24/23 11:45 lisinopril AdvReac Cough Verified 07/24/23 11:45 oats Allergy Intermediate Cramps Uncoded 07/24/23 11:45 rice Allergy Intermediate Cramps Uncoded 07/24/23 11:45 milk AdvReac Intermediate Cramps Uncoded 07/24/23 11:45 - Social History Does the pt smoke?: No Smoking Status: Never smoker Does the pt drink ETOH?: No Does the pt have substance abuse?: No - Immunizations Immunizations are current?: Yes - POLST Patient has POLST: Yes PD ED PE NORMAL - Derm Derm: Normal color, Warm and dry, No rash - Extremities Extremities: No calf tenderness / cord - Neuro Neuro: Alert and oriented X 3, No motor deficit, No sensory deficit, Other (normal sensation in lower extremities. ) Results - Vitals Vitals: Vital Signs - 24 hr 07/24/23 07/24/23 11:40 18:54 Temperature 36.4 C L 37.0 C Heart Rate 70 72 Respiratory 20 16 Rate Blood Pressure 187/93 H 203/97 H O2 Saturation 94 96 Oxygen O2 Source Room air - Labs Labs: Laboratory Tests 07/24/23 16:35 Urine Color YELLOW Urine Clarity CLEAR Urine pH 6.0 Ur Specific [place] 1.010 Urine Protein NEGATIVE Urine Glucose (UA) >=1000 H Urine Ketones NEGATIVE Urine Occult Blood NEGATIVE Urine Nitrite NEGATIVE Urine Bilirubin NEGATIVE Urine Urobilinogen 0.2 (NORMAL) Ur Leukocyte Esterase NEGATIVE Ur Microscopic Review NOT INDICATED Urine Culture Comments NOT INDICATED - Rads (name of study) lumbat CT Relevant Findings:: Prelim report reviewed (no kimberly acute abnormality is seen on the CT. Multilevel degenerative changes and prior surgical hardware. ), EMP independent interpretation of test PD Medical Decision Making - ED course Complexity details: reviewed results (no signs of UTI. CT lumbar without apparent caudal impingmenet. ), considered differential (urinary incontinence could be UTI or bladder control separate from lumbar nerve or caudal compression. Can get CT for now, with open MRI being scheduled. ), d/w patient ED course: The patient is claustrophobic and is not able to tolerate a regular MRI. They are looking at a open MRI time slot for her being ordered by her back surgeon. Meanwhile her surgeon did refer to the ER. Presumption we can do a CT scan to look for any significant gross abnormalities. She has had prior back surgery so we can look for stability of the main components. She has had some urinary incontinence but no leg numbness or weakness. She has had increased pain over baseline. She does not want any opioid type pain medicines. We can add some steroid anti-inflammatories in the short-term. We did obtain a lumbar CT scan. Results are pending at this time. If the patient does have some nerve related urinary incontinence, I would think it more sacral nerve roots and not the whole caudal equina given no leg symptoms per se. We did check a urine to look for alternatives such as UTI for the urinary incontinence and frequency. It is does not show signs of infection. She was having some rectal pain. No obvious stool impaction noted on the CT scan. Could be radicular symptoms. Departure - Departure Disposition: 01 Home, Self Care Clinical Impression: Urinary incontinence, Low back pain Condition: Stable Record reviewed to determine appropriate education?: Yes Instructions: ED Sciatica Follow-Up: YASH JAQUEZ DO [Primary Care Provider] - Prescriptions: dexAMETHasone [Decadron] 4 mg PO DAILY #7 tablet Comments: Your CT scan shows your hardware in place. The CAT scan does not show any concerns. It does not look significantly changed from prior. At this point we can add some steroid anti-inflammatory to help with any disc or nerve root inflammation. Follow-up with your primary care and neurosurgeon to see about the open MRI scheduling to further delineate any inflammation. At this point it does not appear acute surgical intervention is needed. No signs of bladder infection. Discharge Date/Time: 07/24/23 19:21
[2023-07-24] MEDS ORDERED: dexAMETHasone 4 MG TABLET PO STA (15:53)
[2023-07-24] MEDS ORDERED: KETOROLAC 30 MG/ML VIAL IM STA (15:53)
[2023-07-24 16:51] LABS: BILIRUBIN,URINE NEGATIVE (NEGATIVE); GLUCOSE, URINE (UA) >=1000 mg/dL (NEGATIVE); KETONES,URINE (UA) NEGATIVE (NEGATIVE); LEUKOCYTE ESTERASE, URINE NEGATIVE (NEGATIVE); NITRITE,URINE NEGATIVE (NEGATIVE); OCCULT BLOOD,URINE NEGATIVE (NEGATIVE); PROTEIN,URINE NEGATIVE (NEGATIVE); UROBILINOGEN,URINE 0.2 (NORMAL) E.U./dL (NORMAL)
[2023-07-24 16:58] LABS: CLARITY,URINE CLEAR (CLEAR)
[2023-07-24 18:56] VITALS: BP 203/97; O2SAT 96
--- NOTE | 2023-07-24 18:58 | CT Report ---
PROCEDURE: Lumbar Spine WO INDICATIONS: low back pain; urinary incontinence. TECHNIQUE: Noncontrast 3 mm thick sections acquired from the T12 level to the sacrum. Sagittal and coronal refo rmats were constructed. For radiation dose reduction, the following was used: automated exposure co ntrol, adjustment of mA and/or kV according to patient size. COMPARISON: None. FINDINGS: Image quality: This study is limited by body habitus. There is artifact associated with the metalli c hardware. Bones: There is normal bony alignment. No acute vertebral body compression fractures. No suspiciou s lytic or blastic bony lesions. Central spinal caliber is of normal overall caliber. No pars defec ts. T12-L1: Normal in appearance. L1-L2: Normal in appearance. L2-L3: Normal in appearance. L3-L4: The disc height is well-preserved. Mild to moderate disc bulge is seen. Moderate facet hype rtrophy is seen. There is moderate left-sided and [id number] right-sided neuroforaminal narrowi ng. Moderate central canal narrowing is seen. L4-L5: Postoperative change is seen at this level, with bilateral pedicle screws and vertical fixat ion rods. A disc spacer is seen. There has been removal of portions of the posterior elements. Mild to moderate disc bulge is seen. Mild to moderate disc bulge is seen. Moderate bilateral neural fora laurie narrowing is seen. No central canal narrowing is seen. L5-S1: The disc height is well-preserved. Mild disc bulge is seen. There is mild to moderate right -sided and moderate left-sided facet hypertrophy. Mild to moderate bilateral neuroforaminal narrowing can be seen. Mild to moderate central canal narrowing is seen. Soft tissues: No retroperitoneal masses or hematomas. Visualized aorta is normal in caliber. IMPRESSION: No kimberly acute abnormality is seen by CT. Unremarkable L4-L5 postoperative hardware. Multiple levels of lower lumbar spine degenerative change can be seen. If it would be helpful for clinical management decision making, please consider a dedicated, schedule d lumbar MRI for further evaluation (assuming that there is no contraindication). Reviewed by: Vlad Bustamante MD on 07/24/2023 5:57 PM [place] Approved by: Vlad Bustamante MD on 07/24/2023 5:[address] [facility] Station ID: [id number]
--- NOTE | 2023-07-24 19:06 | ED Physician Documentation ---
ED Addendum - Addendum Addendum: 07/24/23 19:[address] Maldonado at shift change pending CT imaging. See his note. Her CT is without kimberly acute abnormality. Disposition: Discharged home Condition: Stable
[2023-07-24] MEDS ORDERED: KETOROLAC 60 MG/2 ML VIAL IM STA (19:12)
[2023-07-24] MEDS ORDERED: KETOROLAC 30 MG/ML VIAL ONE (19:16)
== END 2023-07-24 19:21 | disposition home or self-care (01) ==
LOC: ED 11:02
DX: M54.50 Low back pain, unspecified (principal); G89.29 Other chronic pain; R32 Unspecified urinary incontinence
CPT/HCPCS: 72131; 81003; 96372; 99284; J8540; 81001; 87086